=== PATIENT | male | born 1940 | race Caucasian/White ===

== ENCOUNTER 2019-12-15 13:38 | Outpatient (CLI) | payer MEDICARE, OTHER, SELFPAY ==
--- NOTE | ~2019-12-15 | CT_ITS ---
EXAMINATION: CT abdomen pelvis w con DATE: 12/15/2019 15:19 INDICATION: Appendiceal cancer. Follow-up. TECHNIQUE: Computed tomography (CT) of the abdomen and pelvis was performed with 100 cc Omnipaque 350 intravenous contrast. The dose-length product was 729.84 mGy-cm. Automated exposure control and iter ative reconstruction technique were employed. COMPARISON: CT dated 06/16/2019 FINDINGS: There is bibasilar atelectasis. Heart size normal. No significant pleural or pericardial ef fusion. Fatty infiltration of the liver. The spleen is not visualized, likely surgically absent. Status post cholecystectomy with expected prominence of the common bile duct. Status post partial right colectomy and appendectomy. Status post prostatectomy. The pancreas, adrenal glands and kidneys are unremarkab le. Nonobstructive bowel gas pattern. There is a left hip arthroplasty. 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 Moderate lumbar spondylosis. IMPRESSION: 1. No evidence for residual/recurrent malignancy or metastatic disease. No significant change. Reviewed, dictated and finalized at location A. IMPRESSION: 1. No evidence for residual/recurrent malignancy or metastatic disease. No sign ificant change.
[2019-12-15 15:06] LABS: Estimated Glomerular Filt Rate 45
== END 2019-12-15 13:39 | disposition home or self-care (01) ==
PROVIDERS: PCP Family Medicine; Visit Provider Internal Medicine Medical Oncology
DX: C18.1 Malignant neoplasm of appendix (principal)
CPT/HCPCS: 36415; 74177; Q9967

== ENCOUNTER 2020-04-09 13:01 | Outpatient (CLI) | payer MEDICARE, OTHER, SELFPAY ==
--- NOTE | ~2020-04-09 | XR_ITS ---
EXAMINATION: XR chest 2V DATE: 04/09/2020 13:22 INDICATION: Pleurodynia. Right shoulder pain. TECHNIQUE: Frontal and lateral views of the chest were obtained. COMPARISON: Chest 2 views 01/22/2017, CT abdomen and pelvis 12/15/2019 FINDINGS: The chest demonstrates clear lungs without pneumonia, pleural effusion, or pneumothorax. Th e heart size is normal. IMPRESSION: 1. No acute cardiopulmonary disease. Reviewed, dictated and finalized at location B.
== END 2020-04-09 13:02 | disposition home or self-care (01) ==
PROVIDERS: PCP Family Medicine; Visit Provider Physician Assistant Medical
DX: R07.81 Pleurodynia (principal)
CPT/HCPCS: 71046

== ENCOUNTER → 2021-05-05 15:46 | Outpatient (CLI) | payer MEDICARE, OTHER, SELFPAY ==
--- NOTE | ~2021-05-05 | XR_ITS ---
XR chest 2V 05/05/2021 16:06 Indication: Covid19. Shortness of breath. Procedure: 2 view chest Comparison: Comparison to multiple prior studies sequentially, with oldest reviewed study dated 12/01. Findings: Patchy bibasilar airspace disease, compatible with pneumonia. No pleural effusion. No pneum othorax. Heart size is normal. No acute osseous abnormality. Impression: 1: Patchy bibasilar airspace disease, compatible with pneumonia. Reviewed, dictated and finalized at location A. Impression: 1: Patchy bibasilar airspace disease, compatible with pneumonia.
== END ==
PROVIDERS: PCP Physician Assistant Medical; Visit Provider Physician Assistant Medical
DX: U07.1 COVID-19 (principal); R91.8 Other nonspecific abnormal finding of lung field
CPT/HCPCS: 71046

== ENCOUNTER → 2021-05-26 09:12 | Outpatient (CLI) | payer MEDICARE, OTHER, SELFPAY ==
--- NOTE | ~2021-05-26 | XR_ITS ---
XR chest 2V 05/26/2021 09:26 Indication: Pneumonia Procedure: 2 view chest Comparison: Comparison to multiple prior studies sequentially, with oldest reviewed study dated 12/01. Findings:Improving bibasilar airspace disease, compatible with improving pneumonia. No effusion. Hear t size normal. No pleural effusion or pneumothorax. No acute osseous abnormality. Impression: 1: Improving patchy bibasilar pneumonia. Reviewed, dictated and finalized at location A. Impression: 1: Improving patchy bibasilar pneumonia.
== END ==
PROVIDERS: PCP Physician Assistant Medical; Visit Provider Physician Assistant Medical
DX: U07.1 COVID-19 (principal); J12.82 Pneumonia due to coronavirus disease 2019
CPT/HCPCS: 71046

== ENCOUNTER 2021-06-11 08:16 | Outpatient (CLI) | payer MEDICARE, OTHER, SELFPAY ==
--- NOTE | ~2021-06-11 | CT_ITS ---
EXAMINATION: CT abdomen pelvis w con EXAM DATE: 06/11/2021 08:56 INDICATION: Restaging for cancer of appendix. TECHNIQUE: Spiral CT of the abdomen and pelvis was performed following intravenous injection of 100 m L Omnipaque 350. Axial, coronal and sagittal images of the abdomen and pelvis were reviewed. The do se-length product (DLP) for this examination was 745.54 mGy-cm. The exposure was tailored according to patient size (auto mA exposure control), and iterative reconstruction (ASIR) was used as additiona l dose reduction technique. Comparison is made to prior examination from 12/15/2019. FINDINGS: There is hepatic steatosis without suspicious focal lesion identified. Spleen not identifie d. Adrenal glands, pancreas are unremarkable. There are a couple of liver cysts. There are cholecyst ectomy clips. Portal and splenic veins are patent. Kidneys enhance symmetrically. There is no hydr onephrosis. Probable prostatectomy, pelvic lymph node dissection. The bladder is unremarkable. Th ere is no retroperitoneal or pelvic lymphadenopathy. There is mild scattered arteriosclerotic disea se. Cecal resection, no evidence of wall thickening along the anastomosis site. Small inguinal fat-contai winsome hernias. There is mild scattered colonic diverticulosis. There is no adjacent inflammatory baptiste ge to suggest diverticulitis. The stomach and small bowel are unremarkable. There is expected amount of colonic stool. No free intraperitoneal gas. The heart is normal in size. There are no perica rdial or pleural effusions. Linear basilar atelectasis. There are no osteoblastic or osteolytic les ions identified. There is left hip replacement. IMPRESSION: 1. Stable postoperative changes. No evidence metastatic disease. 2. Hepatic steatosis. 3. Inguinal hernias. 4. Mild scattered colonic diverticulosis. Reviewed, dictated and finalized at location B.
[2021-06-11 08:47] LABS: Estimated Glomerular Filt Rate 49
== END 2021-06-11 08:17 | disposition home or self-care (01) ==
LOC: ANHIMG 08:17
PROVIDERS: PCP Family Medicine; Visit Provider Internal Medicine Medical Oncology
DX: C18.1 Malignant neoplasm of appendix (principal); K76.0 Fatty (change of) liver, not elsewhere classified; K40.90 Unilateral inguinal hernia, without obstruction or gangrene, not specified as recurrent; K57.30 Diverticulosis of large intestine without perforation or abscess without bleeding
CPT/HCPCS: 74177; Q9967

== ENCOUNTER 2021-12-23 08:50 | Outpatient (CLI) | payer MEDICARE, OTHER, SELFPAY ==
--- NOTE | ~2021-12-23 | CT_ITS ---
EXAMINATION: CT abdomen pelvis w con DATE: 12/23/2021 09:32 INDICATION: Restaging of appendiceal cancer TECHNIQUE: Computed tomography (CT) of the abdomen and pelvis was performed with 100 CC Omnipaque 300 intravenous contrast. Automated exposure control and iterative reconstruction technique were employe d. Exam dose: 672.18 mGy-cm total exam DLP. COMPARISON: 06/11/2021 CT abdomen pelvis FINDINGS: There is discoid atelectasis and/or scarring in both lower lobes. No consolidation at the l aline bases. No pleural effusions. No pericardial effusion. Normal heart size. There is some aortic norm ve calcification. Diffuse hepatic steatosis. 2 approximately 11 mm left and 11 mm right hepatic cysts. Status post cholecystectomy. No bile duct dilatation. The spleen is absent. No pancreatic mass lesion or calcification or ductal dilatation. Normal morphology of the adrenal glands, and minimal left adrenal calcification. No renal mass lesion or urinary tract calculus or hydroureteronephrosis. There is atherosclerotic calcification but normal caliber of the abdominal aorta. No intraperitoneal or retroperitoneal or pelvic mass lesion or adenopathy or ascites. Status post prostatectomy and pelvic side wall lymph node dissection. Status post appendectomy and right partial colectomy. There is a prominent amount of fecal material in the colon but no evidence of bowel obstruction. Dive rticulosis of the left colon; no CT evidence of diverticulitis. No intraperitoneal free air. There is severe degenerative disc disease at L3-4, L4-5 and L5-S1. No suspicious osteolytic or osteob lastic lesions are noted. Status post left total hip arthroplasty. Right hip osteoarthritis. IMPRESSION: Status post appendectomy and right partial colectomy; no recurrent or metastatic appendi ceal neoplasm is evident Status post prostatectomy and bilateral pelvic sidewall lymph node dissection Status post cholecystectomy Hepatic steatosis Hepatic cysts Diverticulosis of the left colon; no CT evidence of diverticulitis Status post left total hip arthroplasty Reviewed, dictated and finalized at Location A. Reviewed, dictated and finalized at location B. IMPRESSION: Status post appendectomy and right partial colectomy; no recurrent or metastatic appendiceal neoplasm is evident Status post prostatectomy and bilateral pelvic sidewall lymph node dissection Status post cholecystectomy Hepatic steatosis Hepatic cysts Diverticulosis of the left colon; no CT evidence of diverticulitis Status post left total hip arthroplasty
[2021-12-23 09:22] LABS: Estimated Glomerular Filt Rate 53
== END 2021-12-23 08:51 | disposition home or self-care (01) ==
PROVIDERS: PCP Family Medicine; Visit Provider Internal Medicine Medical Oncology
DX: C18.1 Malignant neoplasm of appendix (principal); Z90.49 Acquired absence of other specified parts of digestive tract; K76.0 Fatty (change of) liver, not elsewhere classified; K57.30 Diverticulosis of large intestine without perforation or abscess without bleeding
CPT/HCPCS: 74177; Q9967

== ENCOUNTER 2022-07-20 09:19 | Outpatient (CLI) | payer MEDICARE, OTHER, SELFPAY ==
--- NOTE | ~2022-07-20 | CT_ITS ---
EXAMINATION: CT abdomen pelvis w con DATE: 07/20/2022 09:51 INDICATION: Restaging, appendiceal cancer TECHNIQUE: Computed tomography (CT) of the abdomen and pelvis was performed with 100 CC Omnipaque 350 intravenous contrast. Automated exposure control and iterative reconstruction technique were employe d. Exam dose: 823.19 mGy-cm total exam DLP. COMPARISON: 12/23/2021 CT abdomen pelvis FINDINGS: Normal heart size. No pericardial or pleural effusion. There is chronic discoid atelectasis and/or scarring in the lower lung zones. Stable approximately 11 mm cyst of left and right hepatic lobes. No new or enlarged hepatic space-occ upying mass lesion. The spleen is absent. The gallbladder is absent. No bile duct or pancreatic duct dilatation. No pancreatic mass lesion or c alcification or ductal dilatation. Normal morphology of the adrenal glands. No renal mass lesion or urinary tract calculus or hydroureteronephrosis. There is atherosclerotic calcification but normal caliber of the abdominal aorta. No intraperitoneal or retroperitoneal or pelvic mass lesion or adenopathy or ascites is detected. There is a prominent amount of fecal material in the colon. No bowel obstruction is evident. There is diverticulosis of the colon; no CT evidence of diverticulitis. Status post right partial colectomy. No bowel obstruction or intraperitoneal free air. Status post prostatectomy and bilateral pelvic sidewall lymph node dissection. Degenerative spurring of the thoracic spine. Severe degenerative disc disease at L3-4, L4-5 and L5-S1. Prominent right hip osteoarthritis. Status post left total hip arthroplasty. IMPRESSION: Status post right partial colectomy Status post prostatectomy and bilateral pelvic sidewall lymph node dissection No abdominal or pelvic mass lesion or adenopathy Stable left and right hepatic lobe millimeters cysts Diverticulosis of left colon and rectum are monophasic material in the colon; no bowel obstruction Reviewed, dictated and finalized at Location A. Reviewed, dictated and finalized at location B. SERVICE WAITER/WAITRESS IMPRESSION: Status post right partial colectomy Status post prostatectomy and bilateral pelvic sidewall lymph node dissection No abdominal or pelvic mass lesion or adenopathy Stable left and right hepatic lobe millimeters cysts Diverticulosis of left colon and rectum are monophasic material in the colon; n o bowel obstruction
[2022-07-20 09:45] LABS: Estimated Glomerular Filt Rate 49
== END 2022-07-20 09:20 | disposition home or self-care (01) ==
PROVIDERS: PCP Family Medicine; Visit Provider Internal Medicine Medical Oncology
DX: C18.1 Malignant neoplasm of appendix (principal); K76.89 Other specified diseases of liver; K57.30 Diverticulosis of large intestine without perforation or abscess without bleeding
CPT/HCPCS: 74177; Q9967

== ENCOUNTER → 2022-07-27 10:34 | Outpatient (CLI) | payer MEDICARE, OTHER, SELFPAY ==
--- NOTE | ~2022-07-27 | XR_ITS ---
AP view of the pelvis and lateral view of the right hip Clinical history: Pain Findings: No acute fracture or dislocation is seen. There is minimal degenerative change of the right hip joint. Left hip arthroplasty hardware present. Additional pelvic surgical clips are noted. Soft tissues are otherwise unremarkable. Impression: No acute reality. Minimal degenerative change of the right hip joint. Left hip arthroplasty in place. Reviewed, dictated and finalized at location M. N FILM EXTRUSION OPERATOR Impression: No acute reality. Minimal degenerative change of the right hip joint. Left hip arthroplasty in place.
== END ==
PROVIDERS: PCP Family Medicine; Visit Provider Physician Assistant Medical
DX: M25.551 Pain in right hip (principal); G89.29 Other chronic pain
CPT/HCPCS: 73502

== ENCOUNTER → 2022-11-23 16:25 | Outpatient (CLI) | payer MEDICARE, OTHER, SELFPAY ==
--- NOTE | ~2022-11-23 | XR_ITS ---
Cervical Spine: AP, lateral, open-mouth views Clinical History: Pain Findings: The normal lordotic curve is maintained. No fracture or subluxation evident. There is advan joyce degenerative disc change at C6-C7. There is mild to moderate degenerative disc change at C4 and C 5 and C5-C6. There is facet arthropathy throughout the cervical spine. Pre-vertebral soft tissues are unremarkable. Impression: No fracture or subluxation evident. Degenerative spondylosis, as above. Reviewed, dictated and finalized at location M. Impression: No fracture or subluxation evident. Degenerative spondylosis, as above.
== END ==
PROVIDERS: PCP Family Medicine; Visit Provider Physician Assistant Medical
DX: M47.892 Other spondylosis, cervical region (principal)
CPT/HCPCS: 72040

== ENCOUNTER 2023-05-18 11:04 | Emergency (ER) | payer MEDICARE, OTHER, SELFPAY ==
[2023-05-18] VITALS (26 sets, daily range): BP systolic 140–162; BP diastolic 74–96; PULSE 56–78; RESP 11–22; TEMP 36.7; O2SAT 92–98
--- NOTE | ~2023-05-18 | XR_ITS ---
EXAMINATION: XR chest 2V DATE: 05/18/2023 11:58 INDICATION: Right-sided chest pain TECHNIQUE: PA and lateral views of the chest were obtained. COMPARISON: Chest radiograph dated 05/26/[address] abdomen and pelvis dated 07/20/2022 FINDINGS: Chronic linear discoid atelectasis/scarring at the bilateral lung bases. No new airspace opacities, p ulmonary edema, pleural effusion or pneumothorax. The cardiomediastinal silhouette is normal. Mild th oracic spondylosis. IMPRESSION: 1. Chronic mild discoid atelectasis/scarring at the bilateral lung bases. No other acute cardiopulmon harman disease. Reviewed, dictated and finalized at location A. IMPRESSION: 1. Chronic mild discoid atelectasis/scarring at the bilateral lung bases. No ot her acute cardiopulmonary disease.
--- NOTE | 2023-05-18 11:08 | ECG_ITS ---
Measurements Intervals [place] Rate: 64 P: 43 CO: 184 QRS: -28 QRSD: 108 T: 48 QT: 398 QTc: 412 Interpretive Statements SINUS RHYTHM WITH OCCASIONAL SUPRAVENTRICULAR PREMATURE COMPLEXES BORDERLINE LEFT AXIS DEVIATION [QRS AXIS < -20] NO PREVIOUS ECG AVAILABLE FOR COMPARISON Electronically Signed On 05-18-2023 12:43:40 CDT by Farzad Fraga M.D.
[2023-05-18] MEDS: ASPIRIN 81 MG CHEWABLE TABLET 324 MG PO (11:39)
[2023-05-18 11:45] LABS: Basophils Absolute Auto 0.1 K/mm3 (0.0-0.1); Basophils Percent Auto 0.9 % (0.2-1.2); Eosinophils Absolute Auto 0.2 K/mm3 (0-0.3); Eosinophils Percent Auto 2.3 % (0-4.4); Hematocrit 46.2 % (42.0-52.0); Hemoglobin 15.5 g/dL (14.0-18.0); Immature Granulocyte Absolute 0.05 K/mm3 (0.00-0.031); Immature Granulocyte Percent A 0.5 % (0-0.5); Lymphocytes Absolute Auto 4.13 K/mm3 (0.9-3.2); Lymphocytes Percent Auto 45.3 % (18.3-44.2); Mean Corpuscular HGB Conc 33.5 g/dl (32-36); Mean Corpuscular Hemoglobin 33.4 pg (26-34); Mean Corpuscular Volume 99.6 fl (80-100); Monocytes Absolute Auto 0.9 K/mm3 (0.1-0.6); Monocytes Percent Auto 9.3 % (2.6-8.5); Neutrophils Absolute Auto 3.8 K/mm3 (1.3-6.7); Neutrophils Percent Auto 41.7 % (45.5-73.1); Platelet Count Result 277 k/mm3 (150-375); Red Blood Count 4.64 M/mm3 (4.6-6.20); Red Cell Distribution Width 14.4 % (11.5-14.5); White Blood Count 9.1 K/mm3 (4.5-10.0)
[2023-05-18 11:56] LABS: Alanine Aminotransferase 29 U/L (6-50); Albumin Level 4.5 g/dL (3.5-5.1); Alkaline Phosphatase 84 U/L (38-126); Anion Gap 9 mmol/L (8-16); Aspartate Amino Transferase 28 U/L (17-59); Bilirubin,Total 0.8 mg/dL (0.2-1.3); Blood Urea Nitrogen 21 mg/dL (9-20); Calcium 9.7 mg/dL (8.4-10.2); Carbon Dioxide 24 mmol/L (22-30); Chloride 107 mmol/L (98-107); Estimated CRCL calculation 40 ml/min; Estimated Glomerular Filt Rate 53; Glucose 89 mg/dL (65-110); INR 0.9; Lipase 55 U/L (23-300); Partial Thromboplastin Time 26.7 SECONDS (22.3-36.8); Potassium 4.3 mmol/L (3.4-5.0); Prothrombin Time 12.7 Seconds (11.1-14.7); Sodium 140 mmol/L (137-145)
[2023-05-18 12:08] LABS: Troponin I < 0.012 ng/mL (0.000-0.034)
--- NOTE | 2023-05-18 12:19 | ED.CHESTPAIN ---
HPI - Chest Pain General Chief Complaint: Chest Pain Stated Complaint: chest pain, h/a, nauseous, dizzy Time Seen by Provider: 05/18/23 11:58 History of Present Illness HPI narrative: 82-year-old male with history of hypertension, appendiceal carcinoma status post resection, GERD presenting with chest pain. Patient states that for the last 3 days he has had right-sided chest pain. States that turning to the right in certain ways sometimes exacerbates the pain. He denies a pleuritic or exertional component. No left-sided pain. Reports mild exertional shortness of breath that he thinks is unchanged from baseline. Reports general malaise, cough for the last couple of days. States that he thinks he was febrile a couple of days ago as well but he had a negative home COVID test. He is also felt a bit lightheaded and nauseated but without vomiting. He has been able to tolerate p.o. intake. No numbness or weakness, palpitations, abdominal pain, leg swelling, back pain, flank pain, dysuria. Related Data Home Medications Medication Instructions Recorded Confirmed rosuvastatin 10 mg tablet (Crestor) 10 mg PO DAILY 10/11/19 04/07/23 Lactobac 51-Bifidobac cap PO 08/28/22 04/07/23 3-L.lactis-S.thermophilus 4 billion cell capsule (Daily Probiotic (10 Strains)) ascorbate calcium (vitamin C) 500 500 mg PO DAILY 08/28/22 04/07/23 mg tablet calcium tablet PO 08/28/22 04/07/23 savk-L6-twgjeyoo-inosit-silicon 300 mg-200 unit-37.5 mg tablet cholecalciferol (vitamin D3) 50 50 mcg PO DAILY 08/28/22 04/07/23 mcg (2,000 unit) capsule mecobalamin (vitamin B12) 1,000 1,000 mcg PO DAILY 08/28/22 04/07/23 mcg chewable tablet (B12 Active) multivitamin 1 tablet PO DAILY 08/28/22 04/07/23 mv-min-vit C-ascorb tablet PO 08/28/22 04/07/23 Mr-Lji-Qmi-herb #124 333 mg-1.7 mg chewable tablet (Airborne (ascorbate sodium)) omega-3 fatty acids 500 mg capsule 500 mg PO DAILY 08/28/22 04/07/23 zinc acetate 50 mg (zinc) capsule 50 mg PO DAILY 08/28/22 04/07/23 (Galzin) Allergies Allergy/AdvReac Type Severity Reaction Status Date / Time No Known Allergies Allergy Verified 04/07/23 09:35 Review of Systems Review of Systems: All systems reviewed & are unremarkable except as noted in HPI and below PMFSH Past Medical History Medical History BMI 29.0-29.9,adult BMI 30.0-30.9,adult Cancer of appendix Essential hypertension Mixed hyperlipidemia TIA (transient ischemic attack) 2009 Surgical History Surgical History History of appendectomy (~10/2014) History of cholecystectomy History of colon resection (~2000) History of colonoscopy with polypectomy (~03/16/19) History of hemorrhoidectomy (~1966) History of left hip replacement (~06/01/17) History of left knee replacement (~08/31/17) History of right knee joint replacement (~06/07/18) Hx of splenectomy Hx of tonsillectomy (~194) Family History Family History Father Family history of lung cancer Tobacco abuse Mother Family history of lung cancer Tobacco abuse COPD (chronic obstructive pulmonary disease) Sibling , cancer No problems noted. Sibling , suicide No problems noted. Other Family history of cardiovascular disease Family history of coronary artery disease Hypertension Social History Social History Smoking status: Never smoker Second hand tobacco smoke exposure: Yes Alcohol intake: current Alcohol use details: social Substance use: never Substance use type: does not use Lack of Transportation: No Lack of Food: Never True Current Housing: I Have Housing Concerned About Future Housing: No Difficulty Paying Gas/Electric Bills: No Difficult
[2023-05-18] MEDS: SODIUM CHLORIDE 0.9% IV 1,000 ML 999 ML IV CONT (13:00)
[2023-05-18 13:09] LABS: Influenza A QL RT-PCR Negative (Negative); Influenza B QL RT-PCR Negative (Negative); SARS-CoV-2 RNA PCR Negative (Negative)
[2023-05-18 14:32] LABS: Troponin I < 0.012 ng/mL (0.000-0.034)
--- NOTE | 2023-06-01 11:53 | PC.NURSE ---
LATE ENTRY This note is being entered to document information to the patient's record. The following information was omitted on [05/18/23], by [Elizabeth Jurado Normal Saline 1000 ml].
== END 2023-05-18 15:25 | disposition home or self-care (01) ==
PROVIDERS: Emergency Medicine; Emergency Provider Emergency Medicine; PCP Family Medicine
DX: R07.89 Other chest pain (principal); Z20.822 Contact with and (suspected) exposure to COVID-19; I10 Essential (primary) hypertension; E78.2 Mixed hyperlipidemia; K21.9 Gastro-esophageal reflux disease without esophagitis; Z86.73 Personal history of transient ischemic attack (TIA), and cerebral infarction without residual deficits; Z85.038 Personal history of other malignant neoplasm of large intestine; Z96.653 Presence of artificial knee joint, bilateral; Z96.642 Presence of left artificial hip joint; Z90.49 Acquired absence of other specified parts of digestive tract; Z90.81 Acquired absence of spleen; I49.1 Atrial premature depolarization
CPT/HCPCS: 36415; 71046; 80053; 83690; 84484; 85025; 85610; 85730; 87636; 93005; 96360; 99284; A9270; J7030

== ENCOUNTER 2023-07-22 14:39 | Outpatient (CLI) | payer MEDICARE, OTHER, SELFPAY ==
--- NOTE | ~2023-07-22 | CT_ITS ---
EXAMINATION: CT abdomen pelvis w con DATE: 07/22/2023 15:11 INDICATION: Cancer of appendix. TECHNIQUE: Computed tomography (CT) of the abdomen and pelvis was performed with 100 mL Omnipaque 350 intravenous contrast. Automated exposure control and iterative reconstruction technique were employe d. The dose-length product was 669.05 mGy-cm. COMPARISON: CT abdomen and pelvis 07/20/2022 FINDINGS: The visualized portions of the lung bases demonstrate mild atelectasis. No pleural effusion . The heart size is normal. There are coronary artery calcifications. There are calcifications of aor tic valve. No pericardial effusion. There are cysts in the liver measuring up to 13 mm. The gallbladd er is absent. The spleen is absent. The pancreas and adrenal glands are normal. There is cortical thi nning of the kidneys. There is a left inguinal hernia containing fat. There are no dilated loops of b owel. There are changes of right hemicolectomy. There are likely changes of resection of the greater omentum. There are surgical clips from pelvic lymph node dissection. Aortic atherosclerosis is noted. There are no pathologically enlarged lymph nodes. There is no free intraperitoneal fluid. There is a total left hip arthroplasty. There is severe lumbar spondylosis. IMPRESSION: 1. No evidence of metastatic disease. Reviewed, dictated and finalized at location E. ATRIC CRITICAL CARE NURSE
[2023-07-22 15:01] LABS: Estimated Glomerular Filt Rate 45
== END 2023-07-22 14:40 | disposition home or self-care (01) ==
PROVIDERS: PCP Family Medicine; Visit Provider Internal Medicine Medical Oncology
DX: C18.1 Malignant neoplasm of appendix (principal)
CPT/HCPCS: 74177; Q9967

== ENCOUNTER 2023-12-17 13:02 | Outpatient (CLI) | payer MEDICARE, OTHER, SELFPAY ==
--- NOTE | 2023-12-17 13:39 | ECG_ITS ---
SEE SCANNED COPY FOR CONFIRMED REPORT MTDD
[2023-12-17 15:06] LABS: Hematocrit 43.3 % (42.0-52.0); Hemoglobin 14.3 g/dL (14.0-18.0)
[2023-12-17 15:17] LABS: Albumin Level 4.5 g/dL (3.5-5.1); Estimated Glomerular Filt Rate 42; Glucose 92 mg/dL (65-110)
[2023-12-17 16:25] LABS: Hemoglobin A1C 5.8 % (<5.7)
== END 2023-12-17 13:03 | disposition home or self-care (01) ==
PROVIDERS: PCP Family Medicine; Visit Provider Orthopaedic Surgery
DX: I10 Essential (primary) hypertension (principal); N28.9 Disorder of kidney and ureter, unspecified; M16.11 Unilateral primary osteoarthritis, right hip; R73.01 Impaired fasting glucose
CPT/HCPCS: 36415; 82040; 82565; 82947; 83036; 85014; 85018; 93005

== ENCOUNTER 2023-12-20 10:41 | Inpatient (IN) | payer MEDICARE, OTHER, SELFPAY ==
[2023-12-20] VITALS (18 sets, daily range): BP systolic 132–158; BP diastolic 76–93; PULSE 62–69; RESP 16–20; TEMP 36.2–36.6; O2SAT 91–100; BMI 28.8
--- NOTE | ~2023-12-20 | CT_ITS ---
EXAMINATION: CTA chest PE protocol DATE: 12/20/2023 13:54 INDICATION: Chest pain and shortness of breath. TECHNIQUE: Computed tomography angiography (CTA) of the chest was performed with 100 mL Omnipaque-350 intravenous contrast timed to evaluate the pulmonary arteries. Coronal maximum intensity projection 3D-reconstructions were created by the technologist. Automated exposure control and iterative reconst ruction technique were employed. The dose-length product was 532.88 mGy-cm. COMPARISON: None. FINDINGS: The lungs demonstrate mild atelectasis. No pleural effusion. The heart size is normal. No p ericardial effusion. There are calcifications of the aortic valve. There is no pulmonary embolus. The re is mild mediastinal and bilateral hilar lymphadenopathy, likely reactive. There are cysts in the k idneys liver measuring up to 11 mm. There is severe cervical and thoracic spondylosis. IMPRESSION: 1. No pulmonary embolus. 2. Mild mediastinal and bilateral hilar lymphadenopathy, likely reactive. Reviewed, dictated and finalized at location A.
--- NOTE | ~2023-12-20 | NM_ITS ---
EXAMINATION: NM alice stress w perfusion DATE: 12/21/2023 14:39 INDICATION: Chest pain. TECHNIQUE: Rest images were obtained following intravenous administration of 10.6 mCi Tc99m tetrofosm in (Myoview). The patient was infused intravenously with Lexiscan (regadenoson). Then, 33.9 mCi Tc99m tetrofosmin (Myoview) was administered intravenously, and stress images were obtained. Data was yan nstructed into short axis and horizontal and vertical long axis SPECT images. Gated SPECT images were also obtained. COMPARISON: Chest CT 12/20/2023 FINDINGS: There is no definite reversible or fixed perfusion abnormality to suggest ischemia or infar ction. There is no segmental wall motion abnormality. Left ventricular ejection fraction measures > 70%. IMPRESSION: 1. No definite ischemia or infarct. 2. Normal left ventricular ejection fraction measuring >70%. Reviewed, dictated and finalized at location A.
--- NOTE | ~2023-12-20 | XR_ITS ---
EXAMINATION: XR chest 2V DATE: 12/20/2023 11:39 INDICATION: Cough and chest pain TECHNIQUE: PA and lateral views of the chest were obtained. COMPARISON: Chest radiograph dated 05/18/2023 FINDINGS: Unchanged streaky left basilar atelectasis/scarring. No new airspace opacities, pulmonary edema, pleu ral effusion or pneumothorax. The cardiomediastinal silhouette is normal. IMPRESSION: 1. Chronic atelectasis/scarring at the left lung base. No acute cardiopulmonary disease. Reviewed, dictated and finalized at location A.
--- NOTE | 2023-12-20 10:44 | ECG_ITS ---
SEE SCANNED COPY FOR CONFIRMED REPORT MTDD
[2023-12-20 11:17] LABS: Basophils Absolute Auto 0.1 K/mm3 (0.0-0.1); Basophils Percent Auto 1.3 % (0.2-1.2); Eosinophils Absolute Auto 0.2 K/mm3 (0-0.3); Eosinophils Percent Auto 2.5 % (0-4.4); Hematocrit 39.3 % (42.0-52.0); Hemoglobin 13.1 g/dL (14.0-18.0); Immature Granulocyte Absolute 0.02 K/mm3 (0.00-0.031); Immature Granulocyte Percent A 0.3 % (0-0.5); Lymphocytes Absolute Auto 3.14 K/mm3 (0.9-3.2); Lymphocytes Percent Auto 51.4 % (18.3-44.2); Mean Corpuscular HGB Conc 33.3 g/dl (32-36); Mean Corpuscular Hemoglobin 32.4 pg (26-34); Mean Corpuscular Volume 97.3 fl (80-100); Mean Platelet Volume 9.9 fl (7.4-10.4); Monocytes Absolute Auto 0.7 K/mm3 (0.1-0.6); Monocytes Percent Auto 11.9 % (2.6-8.5); Neutrophils Percent Auto 32.6 % (45.5-73.1); Platelet Count Result 273 k/mm3 (150-375); Red Blood Count 4.04 M/mm3 (4.6-6.20); Red Cell Distribution Width 14.1 % (11.5-14.5); White Blood Count 6.1 K/mm3 (4.5-10.0)
[2023-12-20 11:28] LABS: Prothrombin Time 13.5 Seconds (11.1-14.7)
[2023-12-20 11:29] LABS: Partial Thromboplastin Time 29.9 Seconds (22.3-36.8)
[2023-12-20 11:32] LABS: Alanine Aminotransferase 26 U/L (6-50); Albumin Level 4.3 g/dL (3.5-5.1); Alkaline Phosphatase 66 U/L (38-126); Anion Gap 8 mmol/L (4-12); Aspartate Amino Transferase 32 U/L (17-59); Bilirubin,Total 0.7 mg/dL (0.2-1.3); Blood Urea Nitrogen 17 mg/dL (9-20); Calcium 9.2 mg/dL (8.4-10.2); Carbon Dioxide 20 mmol/L (22-30); Chloride 110 mmol/L (98-107); Estimated CRCL calculation 45 ml/min; Estimated Glomerular Filt Rate 53; Glucose 93 mg/dL (65-110); Lipase 110 U/L (23-300); Potassium 4.4 mmol/L (3.4-5.0); Sodium 138 mmol/L (137-145)
[2023-12-20 11:44] LABS: Troponin I < 0.012 ng/mL (0.000-0.034)
--- NOTE | 2023-12-20 12:24 | ED.CHESTPAIN ---
HPI - Chest Pain General Chief Complaint: Chest Pain Stated Complaint: CP and cough Time Seen by Provider: 12/20/23 12:02 Source: patient, RN notes reviewed and old records reviewed Mode of arrival: ambulatory Limitations: no limitations History of Present Illness HPI narrative: This is an 82 year old male who presents for evaluation of chest pain and shortness of breath. He states he has been having intermittent midsternal chest pain when activity for past 1-2 weeks. He describes the pain as tightness and he has associated shortness of breath. His last episode if chest pain was this morning when he was going to let the dog out the house. He denies associated leg swelling, calf pain, fever, diaphoresis. He does reports having a cough for over 1 month after having bronchitis. He denies history of heart attack , heart disease. His palliative care nurse is Dr. Littlejohn. His last stress test was 2 years ago . Related Data Home Medications Medication Instructions Recorded Confirmed rosuvastatin 10 mg tablet (Crestor) 10 mg PO DAILY 10/11/19 12/20/23 Allergies Allergy/AdvReac Type Severity Reaction Status Date / Time No Known Allergies Allergy Verified 12/01/23 08:26 Review of Systems Constitutional: Constitutional: Denies weakness Cardiovascular: Cardiovascular: Reports chest pain, Denies syncope, Denies rapid heart rate, Denies irregular heart rhythm, Denies leg edema and Reports dyspnea Respiratory: Respiratory: Denies chest congestion, Reports cough, Denies hemoptysis, Denies excessive phlegm production and Reports dyspnea Gastrointestinal: Gastrointestinal: Denies abdominal pain, Denies hematochezia, Denies diarrhea and Denies vomiting Genitourinary: Genitourinary: Denies hematuria, Denies dysuria, Denies penile discharge and Denies testicular pain Musculoskeletal: Musculoskeletal: Denies joint swelling, Denies loss of height and Denies muscle weakness Neurologic: Denies syncope, Denies focal weakness and Denies weakness FOR[facility]LY [facility] Past Medical History Medical History (Updated 12/20/23 @ 20:53 by Betina Mack MD) 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 Carotid artery disease Status post left carotid endarterectomy. Essential hypertension Mixed hyperlipidemia Prostate cancer Status post prostatectomy. Transient ischemic attack (2009) Surgical History Surgical History (Updated 12/20/23 @ 17:15 by Maisha Lawrence PA-C) History of appendectomy (10/2014) History of cardiac catheterization (2007) History of cholecystectomy History of colon resection (10/2014) For cancer of the appendix. History of colonoscopy with polypectomy (03/16/19) History of hemorrhoidectomy (1966) History of left hip replacement (06/01/17) History of left knee replacement (08/31/17) History of left-sided carotid endarterectomy (02/15/08) History of prostatectomy (2000) History of right knee joint replacement (06/07/18) History of splenectomy History of tonsillectomy (194) Family History Family History Father Family history of lung cancer Tobacco abuse Mother Family history of lung cancer Tobacco abuse COPD (chronic obstructive pulmonary disease) Sibling , cancer Alcoholism Heart disease Suicide Other Family history of cardiovascular disease Family history of coronary artery disease Hypertension Social History Social History (Updated 12/20/23 @ 17:15 by Maisha Lawrence PA-C) Social History: Surrogate medical decision maker: Shira hammond, spouse. Code status: Full code. Smoking status: Never smoker Second hand tobacco smoke exposure: Yes Alcohol intake: current Drinks per week: 1 Alcohol use details: social Substance use: never Substance use type: does not use Do You Feel Safe in your Home?: Yes Lack of Transportation: No Lack of Nu
[2023-12-20 13:33] LABS: D Dimer 0.55 ug/mL (<0.48)
[2023-12-20 15:31] LABS: Troponin I < 0.012 ng/mL (0.000-0.034)
--- NOTE | 2023-12-20 16:53 | ADMGEN ---
This patient, Matthias Chu, was admitted to IMU Room 232-01. Patient/family oriented to hospital policies and general routines including ID bracelet, bed and alarms, visiting hours, pain management, procedures, bathroom and other care routines, personal items, smoking policy, room service/diet, and visiting hours. Information on how to activate the Rapid Response Team has been discussed. Patient/Family are encouraged to report perceived risks to care and to ask questions if they do not understand what they are told or what they should do.
--- NOTE | 2023-12-20 17:11 | PM.IMHP ---
H&P: HPI History of Present Illness Date/Time: 12/20/23 19:15 Chief Complaint: Chest pain. Narrative: This is a very pleasant 82-year-old male with history of transient ischemic attack, carotid artery disease status post left carotid endarterectomy, hypertension, hyperlipidemia, prostate cancer, and cancer of the appendix who presented to the emergency department via private vehicle for evaluation of chest pain. The patient provides the following history. Over the last couple of weeks he has been experiencing exertional chest discomfort described as nonradiating tightness in the mid chest associated with shortness of breath and dizziness. The symptoms resolve with rest or after taking a couple of aspirin. He is able to perform his usual activities of daily living and the tightness seems to occur with activity such as walking his dog. A couple of times it has wakened him in the middle of the night. Two weeks ago he had bronchitis and he has a lingering, mostly dry cough, but other symptoms have resolved. He denies syncope, near syncope, palpitations, fluttering sensations, pleuritic pain, orthopnea, paroxysmal nocturnal dyspnea, calf pain, nausea, vomiting, and sweats. Stress test in May 2022 was reportedly unremarkable. In the ED: Vital signs were stable on arrival. Troponins have been negative thus far. EKG shows rate controlled atrial fibrillation which is a new finding for the patient. Chest CTA was negative for pulmonary embolus but did show mild, likely reactive lymphadenopathy. He was given aspirin 324 mg and he is being admitted in this setting for closer monitoring and Cardiology consult. Review of Systems Review of Systems: 12 systems were reviewed and are negative except for as per HPI. 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 Carotid artery disease Status post left carotid endarterectomy. Essential hypertension Mixed hyperlipidemia Obstructive sleep apnea Intolerant to PAP therapy. Prostate cancer Status post prostatectomy. Transient ischemic attack (2009) Surgical History Surgical History (Updated 12/20/23 @ 17:15 by Maisha Lawrence PA-C) History of appendectomy (10/2014) History of cardiac catheterization (2007) History of cholecystectomy History of colon resection (10/2014) For cancer of the appendix. History of colonoscopy with polypectomy (03/16/19) History of hemorrhoidectomy (1966) History of left hip replacement (06/01/17) History of left knee replacement (08/31/17) History of left-sided carotid endarterectomy (02/15/08) History of prostatectomy (2000) History of right knee joint replacement (06/07/18) History of splenectomy History of tonsillectomy (194) Family History Family History Father Family history of lung cancer Tobacco abuse Mother Family history of lung cancer Tobacco abuse COPD (chronic obstructive pulmonary disease) Sibling , cancer Alcoholism Heart disease Suicide Other Family history of cardiovascular disease Family history of coronary artery disease Hypertension Social History Social History (Updated 12/21/23 @ 00:23 by Maisha Lawrence PA-C) Social History: Surrogate medical decision maker: Shira Chu, spouse. Code status: Full code. Smoking status: Never smoker Second hand tobacco smoke exposure: Yes Alcohol intake: current Drinks per week: 1 Alcohol use details: social Substance use: never Substance use type: does not use Do You Feel Safe in your Home?: Yes Lack of Transportation: No Lack of Food: Never True Current Housing: I Have Housing Concerned About Future Housing: No Difficulty Paying Gas/Electric Bills: No
[2023-12-20 17:25] LABS: Troponin I < 0.012 ng/mL (0.000-0.034)
[2023-12-21] VITALS (16 sets, daily range): BP systolic 119–155; BP diastolic 71–81; PULSE 58–108; RESP 18–24; TEMP 36.2–36.8; O2SAT 91–96
--- NOTE | 2023-12-21 00:26 | ECHO_ITS ---
Patient Info Name: Matthias Chu Age: 82 years : 1940 Gender: Male Ht: 69 in Wt: 195 lbs BSA: 2.10 m2 HR: 59 bpm BP: 142 / 81 mmHg Heart Rhythm: Atrial Flutter Technical Quality: Good Exam Date: 12/21/2023 8:12 AM Exam Location: Echo Lab Patient Status: Outpatient Admit Date: 12/20/2023 Staff Ordering Physician: Maisha Lawrence PA-C Cone Tender: Susanne Trujillo RDCS Attending Provider: Sabrina Hardin MD Referring Physician: Howard MACKEY; Exam Type: CA echo dop color flow w con Study Info Indications - Atrial flutter R07.9 - Chest pain, unspecified Complete two-dimensional, color flow and Doppler transthoracic echocardiogram is performed with contrast to opacify the left ventricle and to improve the deliniation of the left ventricle endocardial borders. Contrast/Agitated Saline Contrast/Ag. Saline: Definity Amount: 2.00 ml Administered By: Susanne Trujillo RDCS Existing IV Access: Yes IV Access Condition: patent with no signs of infiltration Summary 1. Left ventricular chamber dimension is normal. 2. Left ventricular systolic function is normal, estimated at >70%. 3. There is mildly increased left ventricular wall thickness. 4. The left ventricular diastolic function is grade I diastolic dysfunction. 5. Right ventricular systolic function is normal. 6. Left atrial chamber dimension is moderately enlarged. 7. Right atrial chamber dimension is moderately enlarged. 8. There is mild mitral valve regurgitation. 9. There is mild tricuspid valve regurgitation. Left Ventricle Left ventricular chamber dimension is normal. Left ventricular systolic function is normal, estimated at >70%. There is mildly increased left ventricular wall thickness. The left ventricular diastolic function is grade I diastolic dysfunction. Right Ventricle Right ventricular chamber dimension is normal. Right ventricular systolic function is normal. Left Atria Left atrial chamber dimension is moderately enlarged. Right Atria Right atrial chamber dimension is moderately enlarged. Atrial Septum Intact interatrial septum visualized by color flow imaging. Aortic Valve The aortic valve is trileaflet. There is no aortic valve stenosis. There is no aortic valve regurgitation. There is moderate aortic valve calcification. Pulmonic Valve The pulmonic valve is not well visualized. Mitral Valve There is mild mitral valve regurgitation. Tricuspid Valve There is mild tricuspid valve regurgitation. Pericardium/Pleural There is no pericardial effusion. Inferior Vena Cava Normal inferior vena cava with >50% collapse upon inspiration consistent with normal right atrial pressure, 3 mmHg. Aorta The aortic root size at the sinus of Valsalva is normal. Left Ventricular Outflow Tract Name Value Normal LVOT 2D LVOT Diameter 2.23 cm LVOT Doppler LVOT Peak Gradient 4 mmHg LVOT Mean Gradient 2 mmHg LVOT VTI 18.66 cm LVOT VTI/AV VTI Ratio 0.81 LVOT Stroke Volume 72.56 ml LVOT CO
[2023-12-21 04:49] LABS: Hematocrit 40.1 % (42.0-52.0); Hemoglobin 13.2 g/dL (14.0-18.0); Mean Corpuscular HGB Conc 32.9 g/dl (32-36); Mean Corpuscular Hemoglobin 32.7 pg (26-34); Mean Corpuscular Volume 99.3 fl (80-100); Platelet Count Result 282 k/mm3 (150-375); Red Blood Count 4.04 M/mm3 (4.6-6.20); Red Cell Distribution Width 13.8 % (11.5-14.5)
[2023-12-21 05:10] LABS: Anion Gap 9 mmol/L (4-12); Blood Urea Nitrogen 15 mg/dL (9-20); Calcium 9.5 mg/dL (8.4-10.2); Carbon Dioxide 20 mmol/L (22-30); Chloride 112 mmol/L (98-107); Estimated CRCL calculation 37 ml/min; Estimated Glomerular Filt Rate 49; Glucose 101 mg/dL (65-110); Magnesium 1.9 mg/dL (1.6-2.3); Potassium 3.9 mmol/L (3.4-5.0); Sodium 141 mmol/L (137-145)
[2023-12-21] MEDS: PERFLUTREN LIPID MICROSPHERES 1.5 ML VIAL DILUTED TO 10 ML TOTAL VOLUME IV PUSH (08:48)
[2023-12-21] MEDS: PANTOPRAZOLE 40 MG TABLET PO (09:05)
[2023-12-21] MEDS: amLODIPine BESYLATE 5 MG TABLET 10 MG PO (09:05)
[2023-12-21] MEDS: ROSUVASTATIN 10 MG TABLET PO (09:05)
[2023-12-21] MEDS: ASPIRIN 81 MG CHEWABLE TABLET PO (09:05)
[2023-12-21] MEDS: ENOXAPARIN 40 MG/0.4 ML SYRINGE SUB-Q (09:06)
--- NOTE | 2023-12-21 10:25 | IVDEFINITY ---
Prior to administration of IV Definity the patient was educated on the risks and benefits of the imaging enhancing agent including potential adverse side effects. The patient verbalized understanding. Allergies were verified. No exclusion criteria were identified and at least one of the following inclusion criteria were met: 1) physician request, 2) patient technically difficult to image (per the [place] [employer] guidelines of two or more segments not discernable within the apical view), or 3) questionable left ventricular function. ?
--- NOTE | 2023-12-21 10:45 | EST_ITS ---
Patient Info Name: Matthias Chu Age: 82 years : 1940 Gender: Male Ht: 69 in Wt: 192 lbs BSA: 2.08 m2 HR: 66 bpm BP: 152 / 81 mmHg Heart Rhythm: Atrial Flutter Exam Date: 12/21/2023 1:34 PM Exam Location: Echo Lab Patient Status: Inpatient Admit Date: 12/20/2023 Staff Ordering Physician: Farzad Fraga MD Attending Provider: Sabrina Hardin MD Exercise Technologist: Anjali Hills CT Exercise Physician: Farzad Fraga MD Exam Type: CA stress alice w NM Study Info Indications R07.9 - Chest pain, unspecified A regadenoson stress test was performed. Summary 1. No abnormal ST/T wave changes diagnostic of ischemia with Lexiscan. 2. Please correlate with nuclear medicine images, reported separately. 3. Stress test supervised by and interpreted by Farzad Fraga MD. Protocol: Lexiscan Stress ECG Details Stage: REST Duration (min): 1 min : 6 sec HR (bpm): 67 SBP (mmHg): 152 DBP (mmHg): 81 Stage: REST Duration (min): 19 min : 10 sec HR (bpm): 67 SBP (mmHg): 152 DBP (mmHg): 81 Stage: STAGE 1 Duration (min): 1 min : 0 sec HR (bpm): 66 SBP (mmHg): 157 DBP (mmHg): 94 Stage: RECOVERY Duration (min): 1 min : 0 sec HR (bpm): 67 SBP (mmHg): 157 DBP (mmHg): 94 Stage: RECOVERY Duration (min): 2 min : 0 sec HR (bpm): 68 SBP (mmHg): 157 DBP (mmHg): 94 Stage: RECOVERY Duration (min): 3 min : 0 sec HR (bpm): 67 SBP (mmHg): 165 DBP (mmHg): 85 Stage: RECOVERY Duration (min): 3 min : 29 sec HR (bpm): 67 SBP (mmHg): 165 DBP (mmHg): 85 Rest HR: 67 bpm Peak HR: 68 bpm Rest Sys BP: 152 mmHg Peak Sys BP: 165 mmHg Max Pred HR: 139 bpm % Max Pred HR: 49 % Target HR: 118 bpm Max RPP: 11,220 bpm*mmHg Total Time: 1 min : 0 sec Rest Rodriguez BP: 81 mmHg Peak Rodriguez BP: 85 mmHg Total Dose: 0.4 mg Resting ECG Atrial flutter. Stress ECG Atrial flutter. No abnormal ST/T wave changes diagnostic of ischemia with Lexiscan. Report Signatures
--- NOTE | 2023-12-21 10:46 | PM.CNCAR ---
Assessment and Plan Assessment and plan (1) Atrial flutter: Code(s): I48.92 - Unspecified atrial flutter Status: Acute Assessment and Plan: New diagnosis for the patient. Discussed the diagnosis of atrial flutter with the patient and management steps. TSH level is normal. Echocardiogram pending. [id number] is 7 for age, hypertension, TIA, vascular disease. Recommend anticoagulation. Discussed indication for anticoagulation, risks vs benefits. Patient is agreeable. Will start him on NOAC prior to discharge. Patient is currently rate-controlled, does not need rate controlling agents. Discussed management strategies for symptomatic atrial flutter, including cardioversion, ablation. Discussed that we could consider cardioversion once he has been anticoagulated for 4 weeks. If interested in ablation, can refer to Electrophysiology as an outpatient. (2) Chest pain: Qualifiers: Chest pain type: unspecified Qualified Code(s): R07.9 - Chest pain, unspecified Code(s): R07.9 - Chest pain, unspecified Status: Acute Assessment and Plan: Although his symptoms could be from atrial flutter, given his risk factors for coronary artery disease and exertional chest pain, will obtain Lexiscan. (3) Mixed hyperlipidemia: Code(s): E78.2 - Mixed hyperlipidemia Status: Acute Assessment and Plan: Continue statin. (4) Essential hypertension: Code(s): I10 - Essential (primary) hypertension Status: Acute Assessment and Plan: Stable. Continue Amlodipine. (5) Carotid artery disease: Code(s): I77.9 - Disorder of arteries and arterioles, unspecified Status: Acute Assessment and Plan: Continue statin. History of Present Illness History of Present Illness Consult date/time: 12/21/23 10:46 Requesting physician: Betina Mack MD Consult reason: chest pain and Other (Atrial flutter) Reason For Visit: Chest Pain Narrative: This is an 82 year old male with history of TIA, carotid artery disease s/p left carotid endarterectomy, hypertension, hyperlipidemia, prostate cancer who presented with chest pain. Patient returned from [place], and for the past week, has been having squeezing substernal chest pain with associated shortness of breath with exertion, and sometimes at night when laying down as well. It does improve with rest. ER evaluation showed EKGs with rate controlled atrial flutter, which is a new diagnosis for the patient. Tropnins are negative. CTA negative for PE, there are mild mediastinal and bilateral hilar lymphadenopathy, likely reactive. 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 Carotid artery disease Status post left carotid endarterectomy. Essential hypertension Mixed hyperlipidemia Obstructive sleep apnea Intolerant to PAP therapy. Prostate cancer Status post prostatectomy. Transient ischemic attack (2009) Surgical History Surgical History History of appendectomy (10/2014) History of cardiac catheterization (2007) History of cholecystectomy History of colon resection (10/2014) For cancer of the appendix. History of colonoscopy with polypectomy (03/16/19) History of hemorrhoidectomy (1966) History of left hip replacement (06/01/17) History of left knee replacement (08/31/17) History of left-sided carotid endarterectomy (02/15/08) History of prostatectomy (2000) History of right knee joint replacement (06/07/18) History of splenectomy History of tonsillectomy (1948) Family History Family History
--- NOTE | 2023-12-21 15:24 | PM.IMPN ---
Progress Note: A&P Assessment and Plan (1) Chest pain: Code(s): R07.9 - Chest pain, unspecified Status: Acute Assessment and Plan: 12/21/2023: Lexiscan stress test was negative for any ischemia or infarct, LV ejection fraction measuring greater than 70% Stress test nuclear medicine did not reveal any abnormal ST/T-wave changes Cardiology following Nitroglycerin ordered PRN (2) Atrial flutter: Code(s): I48.92 - Unspecified atrial flutter Status: Acute Assessment and Plan: 12/21/2023: EKG showing a flutter which is a new onset Plan for LAWRENCE with cardioversion tomorrow with Cardiology as long as there is no emboli on the LAWRENCE NPO after midnight Cardiology ordering Eliquis CTA of the chest was negative for any PE, showed mild mediastinal and bilateral hilar lymphadenopathy, likely reactive Chest x-ray showed chronic atelectasis/scarring at the left lung base (3) Essential hypertension: Code(s): I10 - Essential (primary) hypertension Status: Acute Assessment and Plan: 01/10/2024: Blood pressure ranging 142/77 to 158/78 Continue amlodipine (4) Mixed hyperlipidemia: Code(s): E78.2 - Mixed hyperlipidemia Status: Acute Assessment and Plan: 01/10/24: Continue aspirin and rosuvastatin (5) Obstructive sleep apnea: Code(s): G47.33 - Obstructive sleep apnea (adult) (pediatric) Status: Acute Assessment and Plan: 12/21/2023: Patient has history of sleep apnea does wear CPAP at night Discussed with patient that the sleep apnea can be causing his heart issues and he agrees that he needs to be worked up for this. He will call his primary care physician to set up a sleep study on an outpatient basis once discharged. Time Spent With Patient Time with patient: 25 - 35 minutes Subjective Date/time seen: 12/21/23 15:24 Interval history: This is an 82-year-old male presented to the hospital on 12/20/2023 with chief complaint of chest pain. Workup in the hospital included a chest x-ray which showed chronic atelectasis/scarring at the left lung base, no acute cardiopulmonary disease. Chest CTA was negative for PE, mild mediastinal and bilateral hilar lymphadenopathy, likely reactive. EKG showed a flutter with a flutter with a rate of 68. Patient had a nuclear med stress test done which was negative for any abnormal ST T wave changes. Lexiscan stress test did not show any ischemia or infarct, normal left ventricular ejection fraction measuring greater than 70%. Echocardiogram today shown normal LV systolic function with an estimated EF of 70%, grade 1 diastolic dysfunction, normal RV systolic function. Initial labs showed hemoglobin of 13.1, bicarb 20, EGFR 53, creatinine 1.3, troponin x3 was negative, lipase 110, TSH 1.83. Cardiology was consulted and is recommending anticoagulation for his a flutter. On examination today patient is alert oriented x3, lying in the bed. is at the bedside. He denies any fever, chills, nausea, vomiting, diarrhea, abdominal pain, chest pain, shortness a breath, headache, vision changes, lightheadedness, dizziness. Labs today show a hemoglobin of 13.2, bicarb 20, creatinine 1.4, EGFR 49. Plan is for cardioversion tomorrow. He will be NPO after midnight. Cardiology will start him on Eliquis as well. Review of Systems Review of Systems: 12 systems were reviewed and are negative except for as per HPI. All systems reviewed & are unremarkable except as noted in HPI and below Constitutional: Constitutional: Reports as per HPI and Reports no additional constitutional complaints Eyes: Eyes: Reports as per HPI and Reports no additional eye complaints ENT: Reports system reviewed and no additional complaints, except as documented and Reports as per HPI Cardiovascular: Cardiovascular: Reports as per HPI and Reports no additional cardiovascular complaints Respiratory: Respiratory: Reports as per HPI and Re
[2023-12-21] MEDS: APIXABAN 5 MG TABLET PO (20:35)
[2023-12-22] VITALS (22 sets, daily range): BP systolic 97–153; BP diastolic 60–84; PULSE 54–83; RESP 12–20; TEMP 36.4–36.9; O2SAT 91–97
[2023-12-22] MEDS: amLODIPine BESYLATE 5 MG TABLET 10 MG PO (08:40)
[2023-12-22] MEDS: ASPIRIN 81 MG CHEWABLE TABLET PO (08:40)
[2023-12-22] MEDS: PANTOPRAZOLE 40 MG TABLET PO (08:41)
[2023-12-22] MEDS: ROSUVASTATIN 10 MG TABLET PO (08:41)
[2023-12-22] MEDS: APIXABAN 5 MG TABLET PO (08:41)
--- NOTE | 2023-12-22 08:43 | PC.NURSE ---
pt to cardiac laborer shaft sinking for procedure today. Vitals stable and report given to nurse.
--- NOTE | 2023-12-22 09:00 | ECG_ITS ---
SEE SCANNED COPY FOR CONFIRMED REPORT MTDD
--- NOTE | 2023-12-22 09:16 | PM.PNCARD ---
Progress Note: A&P Assessment and Plan (1) Atrial flutter: Code(s): I48.92 - Unspecified atrial flutter Status: Acute Assessment and Plan: New diagnosis for the patient. Discussed the diagnosis of atrial flutter with the patient and management steps. TSH level is normal. Echocardiogram shows LVEF >70%, moderate biatrial enlargement, mild MR, mild TR. [id number] is 6 for age, hypertension, TIA, vascular disease. Recommend anticoagulation. Discussed indication for anticoagulation, risks vs benefits. Patient is agreeable. Started on Eliquis. LAWRENCE-guided DCCV was successful. Patient converted to sinus rhythm with 1 shock at 200 joules. Okay for discharge home later today. Will arrange close follow up with Dr. Littlejohn. (2) Chest pain: Qualifiers: Chest pain type: unspecified Qualified Code(s): R07.9 - Chest pain, unspecified Code(s): R07.9 - Chest pain, unspecified Status: Acute Assessment and Plan: Although his symptoms could be from atrial flutter, given his risk factors for coronary artery disease and exertional chest pain, Lexiscan was done, which was negative for ischemia or infarction. (3) Mixed hyperlipidemia: Code(s): E78.2 - Mixed hyperlipidemia Status: Acute Assessment and Plan: Continue statin. (4) Essential hypertension: Code(s): I10 - Essential (primary) hypertension Status: Acute Assessment and Plan: Stable. Continue Amlodipine. (5) Carotid artery disease: Code(s): I77.9 - Disorder of arteries and arterioles, unspecified Status: Acute Assessment and Plan: Continue statin. Plan Recommendations and plan discussed with Hospitalist. Subjective Date/time seen: 12/22/23 09:16 Interval history: Reason for visit: Atrial flutter HPI: This is an 82 year old male with history of TIA, carotid artery disease s/p left carotid endarterectomy, hypertension, hyperlipidemia, prostate cancer who presented with chest pain. Patient returned from [place], and for the past week, has been having squeezing substernal chest pain with associated shortness of breath with exertion, and sometimes at night when laying down as well. It does improve with rest. ER evaluation showed EKGs with rate controlled atrial flutter, which is a new diagnosis for the patient. Tropnins are negative. CTA negative for PE, there are mild mediastinal and bilateral hilar lymphadenopathy, likely reactive. Date of service 12/21: Remains in rate controlled atrial flutter. LAWRENCE/DCCV today. Review of Systems Review of Systems: All systems reviewed & are unremarkable except as noted in HPI and below (HPI) Exam Const: General: comfortable and no acute distress HENMT: Mouth: Yes moist mucous membranes Eyes: General: appearance normal, both eyes and all related structures Sclera: sclerae normal Resp: Effort & Inspection: normal respiratory effort Cardio: Other: Rate controlled atrial flutter Skin: General skin exam: normal color Neuro: Speech: normal speech Psych: Mental Status: mental status grossly normal Affect: normal affect Objective Data Vital Signs Vital Signs: Vital Signs - 24 hr 12/21/23 10:00 12/21/23 12:00 12/21/23 12:00 Temperature 36.6 C Pulse Rate 68 68 68 Respiratory Rate 20 Blood Pressure 142/77 H Pulse Oximetry 95 Oxygen Delivery 12/21/23 14:00 12/21/23 16:00 12/21/23 16:00 Temperature 36.6 C Pulse Rate 67 67 66 Respiratory Rate 24 H Blood Pressure 140/75 Pulse Oximetry 96 Oxygen Delivery 12/21/23 18:00 12/21/23 20:13 12/21/23 20:00 Temperature 36.5 C Pulse Rate 67 66 65 Respiratory Rate 18 Blood Pressure 131/71 Pulse Oximetry 92 Oxygen Delivery 12/21/23 20:00 12/21/23 23:45 12/21/23 22:00 Temperature 36.4 C Pulse Rate 65 108 H 58 L Respiratory Rate 18 20 Blood Pressure 119/78 Pulse Oximetry 92 95 Oxygen Delivery Room Air 12/21
--- NOTE | 2023-12-22 09:21 | WPDMODSED ---
Moderate Sedation Note-Pt Data Patient Data Diagnosis: Atrial flutter Present Complaint: Atrial flutter Procedure to be performed/Plan: LAWRENCE-guided synchronized electrical cardioversion Allergies Allergy/AdvReac Type Severity Reaction Status Date / Time No Known Allergies Allergy Verified 12/01/23 08:26 Home Medications Medication Instructions Recorded Confirmed Type rosuvastatin 10 mg tablet (Crestor) 10 mg PO DAILY 10/11/19 12/20/23 History amlodipine 10 mg tablet 10 mg PO DAILY #90 tabs 02/11/23 12/20/23 Rx omeprazole 20 mg capsule,delayed 20 mg PO DAILY #100 caps 10/10/23 12/20/23 Rx release Current Medications: Active Medications Acetaminophen (Acetaminophen 325 Mg Tablet) 650 mg PO Q6H PRN PRN Reason: Mild Pain (1-3) or Fever Amlodipine Besylate (Amlodipine Besylate 5 Mg Tablet) 10 mg PO DAILY [facility] Last Admin: 12/22/23 08:40 Dose: 10 mg Apixaban (Apixaban 5 Mg Tablet) 5 mg PO Q12HR [facility] Last Admin: 12/22/23 08:41 Dose: 5 mg Aspirin (Aspirin 81 Mg Chewable Tablet) 81 mg PO DAILY@0800 [facility] Last Admin: 12/22/23 08:40 Dose: 81 mg Morphine Sulfate (Morphine Sulfate (*Crx) 2 Mg/Ml Inj) 2 mg IV PUSH Q2H PRN PRN Reason: Pain Rated 7-10 Nitroglycerin (Nitroglycerin Sl 0.4 Mg Tablet) 0.4 mg SUBLINGUAL Q5MIN PRN PRN Reason: Chest Pain Ondansetron HCl (Ondansetron Inj 4 Mg/2 Ml Vial) 4 mg IV PUSH Q4H PRN PRN Reason: Nausea Pantoprazole Sodium (Pantoprazole 40 Mg Tablet) 40 mg PO QAM [facility] Last Admin: 12/22/23 08:41 Dose: 40 mg Rosuvastatin Calcium (Rosuvastatin 10 Mg Tablet) 10 mg PO DAILY [facility] Last Admin: 12/22/23 08:41 Dose: 10 mg Sedation/Anesthesia: No previous sedation/anesthesia problems (including family history). 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 Carotid artery disease Status post left carotid endarterectomy. Essential hypertension Mixed hyperlipidemia Obstructive sleep apnea Intolerant to PAP therapy. Prostate cancer Status post prostatectomy. Transient ischemic attack (2009) Surgical History Surgical History History of appendectomy (10/2014) History of cardiac catheterization (2007) History of cholecystectomy History of colon resection (10/2014) For cancer of the appendix. History of colonoscopy with polypectomy (03/16/19) History of hemorrhoidectomy (1966) History of left hip replacement (06/01/17) History of left knee replacement (08/31/17) History of left-sided carotid endarterectomy (02/15/08) History of prostatectomy (2000) History of right knee joint replacement (06/07/18) History of splenectomy History of tonsillectomy (1948) Family History Family History Father Family history of lung cancer Tobacco abuse Mother Family history of lung cancer Tobacco abuse COPD (chronic obstructive pulmonary disease) Sibling , cancer Alcoholism Heart disease Suicide Other Family history of cardiovascular disease Family history of coronary artery disease Hypertension Social History Social History Social History: Surrogate medical decision maker: Shira Chu, spouse. Code status: Full code. Smoking status: Never smoker Second hand tobacco smoke exposure: Yes Alcohol intake: current Drinks per week: 1 Alcohol use details: social Substance use: never Substance use type: does not use Do You Feel Safe in your Home?: Yes Lack of Transportation: No Lack of Food: Never True Current Housing: I Have Housing Concerned About Future Housing: No Difficulty Paying Gas/Electric Bills: No Difficulty Paying for Meds: No Curr
--- NOTE | 2023-12-22 09:45 | ECG_ITS ---
SEE SCANNED COPY FOR CONFIRMED REPORT MTDD
--- NOTE | 2023-12-22 09:46 | P.PCNTEECA_ITS ---
LAWRENCE with Cardioversion Date of procedure: 12/22/23 Procedure Type: Date of Procedure: 12/22/2023 Brief History Of Present Illness: Patient is a pleasant 82 year old male who is referred for LAWRENCE-guided DCCV. Indication For Procedure: Atrial flutter Procedure In Detail: After verbal and written informed consent was obtained, the patient risks, benefits, and alternatives explained in detail. The patient agreed to proceed wi th the plan of care as outlined above.?The patient was evaluated at bedside in [facility].?The posterior oropharynx, neck, and jaw angle all within normal limits on examination. Lungs were clear to auscultation. See pre-sedation note for further details. The patient was then placed in the appropriate 30 to 45 degree angle supine position at a slight left lateral decubitus position.?Patient was monitored throughout the study with telemetry, oxygen saturation, end-tidal CO2 monitoring, blood pressure, heart rate, and respirations.? The posterior hypopharynx was then locally anesthetized using repeated administration of Hurricaine spray as well as gargled viscous lidocaine.? After local anesthetic of the posterior hypopharynx was achieved and the oral bite block placed, moderate sedation was administered.? After confirmation of adequate moderate sedation, the transesophageal echocardiogram probe was advanced through the oral bite block into the posterior hypopharynx and into the esophagus easily and without complication.? Multiple, multiplanar echocardiographic images were obtained in multiple standard re- projections.? At the conclusion of the study, the transesophageal echocardiogram probe was removed easily and without complication.? The patient tolerated the procedure well without difficulty.? Moderate Sedation/Anesthesia administration: Patient reports no prior problems with sedation/anesthesia. Please see pre- sedation noted for physical examination documentation. As noted above, after adequate local anesthesia of the posterior hypopharynx was achieved, a total of? Versed 2mg, Fentanyl 75mcg, and total of Propofol 30mg IV in multiple divided doses was administered for moderate sedation.? Sedation start time was 09:23 and end time was 09:40 for a total intra-service/procedure face-face time of? 17 minutes.? Sedation was administered by a qualified/certified observer?Patito Mejia RN under my supervision with intra-procedure [id number] observation and management throughout the entirety of the procedure. The Propofol was administered by me personally. There were no other issues or complications and patient tolerated the procedure well. See post-anesthesia documentation. FINDINGS: LEFT ATRIUM / ATRIAL APPENDAGE: Smoke noted in the left atrium, JOHAN. No evidence of thrombus. Definity was administered by better visualization of JOHAN. CARDIOVERSION: Defibrillator pads were placed in an AP position. Once patient was adequately sedated, synchronized electrical cardioversion was performed with 1 shock at 200 joules, which restored sinus rhythm. CONCLUSION: Successful cardioversion to sinus rhythm with 1 shock at 200 joules. Complications: None This dictation may have been done utilizing a voice recognition system.? Attempts have been made to correct errors. However, there may be uncorrected grammatical, spelling, and recognition errors present.
--- NOTE | 2023-12-22 11:30 | PM.DS ---
DS: Admitting Diagnosis Discharge Date 12/22/23 Admitting Diagnosis Chest pain atrial flutter HTN Mixed hyperlipidemia ROSA DS: Discharge Diagnosis Discharge Diagnosis (1) Chest pain: Code(s): R07.9 - Chest pain, unspecified Status: Acute (2) Atrial flutter: Code(s): I48.92 - Unspecified atrial flutter Status: Acute (3) Essential hypertension: Code(s): I10 - Essential (primary) hypertension Status: Acute (4) Mixed hyperlipidemia: Code(s): E78.2 - Mixed hyperlipidemia Status: Acute (5) Obstructive sleep apnea: Code(s): G47.33 - Obstructive sleep apnea (adult) (pediatric) Status: Acute DS: Summary Hospital Course Reason for hospitalization: Chest pain atrial flutter HTN Mixed hyperlipidemia ROSA Hospital Course: 12/21/23: Interval history: This is an 82-year-old male presented to the hospital on 12/20/2023 with chief complaint of chest pain.? Workup in the hospital included a chest x-ray which showed chronic atelectasis/scarring at the left lung base, no acute cardiopulmonary disease.? Chest CTA was negative for PE, mild mediastinal and bilateral hilar lymphadenopathy, likely reactive.? EKG showed a flutter with a flutter with a rate of 68.? Patient had a nuclear med stress test done which was negative for any abnormal ST T wave changes.? Lexiscan stress test did not show any ischemia or infarct, normal left ventricular ejection fraction measuring greater than 70%.? Echocardiogram today shown normal LV systolic function with an estimated EF of 70%, grade 1 diastolic dysfunction, normal RV systolic function.? Initial labs showed hemoglobin of 13.1, bicarb 20, EGFR 53, creatinine 1.3, troponin x3 was negative, lipase 110, TSH 1.83.? Cardiology was consulted and is recommending anticoagulation for his a flutter. On examination today patient is alert oriented x3, lying in the bed.? is at the bedside.? He denies any fever, chills, nausea, vomiting, diarrhea, abdominal pain, chest pain, shortness a breath, headache, vision changes, lightheadedness, dizziness. Labs today show a hemoglobin of 13.2, bicarb 20, creatinine 1.4, EGFR 49.? Plan is for cardioversion tomorrow.? He will be NPO after midnight.? Cardiology will start him on Eliquis as well. 12/22/23: Patient denies any new complaints today. He had cardioversion today with Cardiology services. He is now back in NSR. Cardiology cleared him for discharge today. Labs today revealed Hgb 13.2, bicarb 20, creatinine 1.40, eGFR 49, TSH 1.830. Patient is stable for discharge at this time. He will be on Eliquis BID and will follow up with Cardiology on an outpatient basis. He will also follow up with his PCP in 1 week for referral for sleep study and C pap. Final diagnosis: Atrial flutter, ROSA, chest pain Status at Discharge Cognitive/behavioral status at discharge: Alert and oriented x4 Functional status at discharge: independent ambulation Overall status at discharge: patient is progressing back to baseline Time Spent with Patient Time attestation: Total time spent providing and/or coordinating discharge services: Time spent: Greater than 30 minutes Exam Narrative: General: In no acute distress, well nourished Head: atraumatic, no encephalopathy Eyes: EOMI, PERRLA, sclera clear ENT: moist mucous membranes, nasal passages clear Neck: supple, no JVD, no adenopathy, trachea midline Cardiac: Normal S1 and S2. NSR, No murmur, gallops or friction rubs, peripheral pulses intact. Respiratory: Lungs clear to auscultation, no adventitious lung sounds, currently on room air Gastrointestinal: soft, non-distended, non-tender, normoactive bowel sounds. : voiding without difficulty. Extremities: moves all extremities well, no edema, good ROM, strength 5/5 Skin: clean, dry, intact. No wounds or lesions. Neuro: Alert and oriented x4, cranial nerves intact, no neuro deficits. Psych: normal mood, normal affect, interactive DS: [place]
== END 2023-12-22 12:42 | disposition home or self-care (01) | DRG 309 ==
LOC: ANHED 12:48 → ANHIMU 15:56
PROVIDERS: Emergency Medicine; Internal Medicine; Physician Assistant; Admitting Provider Family Medicine; Emergency Provider General Practice; PCP Family Medicine; Visit Provider Nurse Practitioner Acute Care
PROC: 5A2204Z Restoration of Cardiac Rhythm, Single (ICD-10-PCS; CPT 93312; principal; 2023-12-22 09:00)
PROC: 5A2204Z Restoration of Cardiac Rhythm, Single (ICD-10-PCS; 2023-12-22 09:00)
DX: I48.92 Unspecified atrial flutter (principal); J98.11 Atelectasis; E78.2 Mixed hyperlipidemia; G47.33 Obstructive sleep apnea (adult) (pediatric); I10 Essential (primary) hypertension; I25.10 Atherosclerotic heart disease of native coronary artery without angina pectoris; I77.9 Disorder of arteries and arterioles, unspecified; R59.1 Generalized enlarged lymph nodes; Z85.46 Personal history of malignant neoplasm of prostate; Z86.73 Personal history of transient ischemic attack (TIA), and cerebral infarction without residual deficits; Z85.89 Personal history of malignant neoplasm of other organs and systems; Z90.49 Acquired absence of other specified parts of digestive tract; Z96.642 Presence of left artificial hip joint; Z96.653 Presence of artificial knee joint, bilateral; Z90.79 Acquired absence of other genital organ(s); Z90.81 Acquired absence of spleen; Z99.89 Dependence on other enabling machines and devices
CPT/HCPCS: 36415; 71046; 71275; 78452; 80048; 80053; 83690; 83735; 84443; 84484; 85025; 85027; 85380; 85610; 85730; 92960; 93005; 93017; 96372; 96374; 99285; A9270; A9502; C8925; C8929; G0378; J1650; J2250; J2704; J2785; J3010; J7040; Q9957; Q9967

== ENCOUNTER 2024-01-18 09:03 | Outpatient (CLI) | payer MEDICARE, OTHER, SELFPAY ==
[2024-01-18 11:08] LABS: Estimated Glomerular Filt Rate 49
[2024-01-18 11:15] LABS: Urine Cotinine NEGATIVE
[2024-01-18 12:10] LABS: MRSA (PCR) NOT DETECTED (NOT DETECTE)
== END 2024-01-18 09:04 | disposition home or self-care (01) ==
LOC: ANHSURGERY 09:40
PROVIDERS: PCP Family Medicine; Visit Provider Orthopaedic Surgery
DX: Z01.818 Encounter for other preprocedural examination (principal); M16.11 Unilateral primary osteoarthritis, right hip
CPT/HCPCS: 80307; 82565; 87641

== ENCOUNTER 2024-01-25 09:11 | Outpatient (CLI) | payer MEDICARE, OTHER, SELFPAY ==
--- NOTE | 2024-02-21 13:07 | WPDSLEEPSTUD ---
Sleep Study Date of Study: 01/25/24 Ordering Provider: Tee Padilla MD Interpreting Physician: Negar Heller DO Sleep Study Type: Split Polysomnogram Height: 1.75 m Weight: 87.997 kg Body Mass Index: 28.6 Neck Circumference (inches): 16 [place]: 2 Reason for Sleep Study Nocturia, daytime hypersomnia Sleep History The patient is an 83-year-old male that had a sleep study ordered by his primary care physician for evaluation of sleep apnea. The patient frequently awakens from sleep short of breath. He rarely awakens at night with heartburn, belching or cough. He frequently snores and a is occasionally loud enough that others complain. He frequently has trouble sleeping when he has a cold. He frequently wakes up gasping for air throughout the night. He frequently has breathing problems at night observed by himself or others. He denies sweating excessively at night. He occasionally has heart palpitations or irregular heartbeats during the night. He occasionally falls asleep during the day but never while driving. He frequently experiences loss of muscle tone when extremely emotional. He denies sleep paralysis and hypnagogic/ hypnopompic hallucinations. He denies having trouble at school or work due to sleepiness. He denies feeling afraid of going to sleep. He denies having nightmares. He denies remembering his dreams. He occasionally has thoughts racing through his mind. He rarely feels sad or depressed. He occasionally has anxiety. He occasionally has muscular tension. He denies noticing parts of his body jerk. He denies kicking during the night. He denies having crawling and aching feelings in his legs but frequently has leg pain during the night. He frequently grinds his teeth during sleep but never awakens with morning jaw pain. He is occasionally bothered by pain during the day and occasionally awakened by pain during the night. He rarely wakes up feeling stiff in the morning. He rarely wakes up with sore or achy muscles. He occasionally wakes up with pain in the neck, spine and other joints. He goes to bed at 10:00 p.m. on weekdays and between 11:00 p.m. to 12:00 a.m. on the weekends. The amount of time it takes for him to fall asleep is variable. He wakes up 4-5 times throughout the night to go to the other bedroom. It takes him 10-30 minutes to fall back asleep. He wakes up at 6:30 a.m. on weekdays and at 7:00 a.m. on the weekends. He typically gets 4-6 hours of sleep per night. He will stay in bed for 5-10 minutes after waking up in the morning. He currently lives with his . He denies consuming any caffeinated beverages within 2 hours of bedtime. He denies engaging in physical exercise before bedtime. He will watch television before falling asleep. He will take naps in the afternoon or the evening and they are refreshing. He consumes 3 cups of caffeinated beverage per day. He denies tobacco and recreational drug use. 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 Carotid artery disease Status post left carotid endarterectomy. Essential hypertension Mixed hyperlipidemia Obstructive sleep apnea Intolerant to PAP therapy. Prostate cancer Status post prostatectomy. Transient ischemic attack (2009) Surgical History Surgical History History of appendectomy (10/2014) History of cardiac catheterization (2007) History of cholecystectomy History of colon resection (10/2014) For cancer of the appendix. History of colonoscopy with polypectomy (03/16/19) History of hemorrhoidectomy (1966) History of left hip replacement (06/01/17) History of left knee replacement (08/31/17) History of left-sided carotid endarterectomy (02/15/08) History
[2024-02-21 13:22] VITALS: BMI 28.6
== END 2024-01-26 07:11 | disposition home or self-care (01) ==
LOC: ANHCSM 09:14
PROVIDERS: PCP Family Medicine; Visit Provider Family Medicine
DX: G47.10 Hypersomnia, unspecified (principal); G47.33 Obstructive sleep apnea (adult) (pediatric)
CPT/HCPCS: 95811

== ENCOUNTER 2024-02-02 00:45 | Day surgery (SDC) | payer MEDICARE, OTHER, SELFPAY ==
[2024-02-01 18:32] VITALS: BMI 28.8
[2024-02-02] VITALS (13 sets, daily range): BP systolic 120–176; BP diastolic 60–76; PULSE 60–72; RESP 14–22; TEMP 36.8; O2SAT 93–94; BMI 28.3
[2024-02-02 08:46] LABS: Basophils Absolute Auto 0.1 K/mm3 (0.0-0.1); Basophils Percent Auto 1.3 % (0.2-1.2); Eosinophils Absolute Auto 0.2 K/mm3 (0-0.3); Eosinophils Percent Auto 2.5 % (0-4.4); Hematocrit 41.7 % (42.0-52.0); Hemoglobin 14.1 g/dL (14.0-18.0); Immature Granulocyte Absolute 0.02 K/mm3 (0.00-0.031); Immature Granulocyte Percent A 0.3 % (0-0.5); Lymphocytes Absolute Auto 3.46 K/mm3 (0.9-3.2); Lymphocytes Percent Auto 48.5 % (18.3-44.2); Mean Corpuscular HGB Conc 33.8 g/dl (32-36); Mean Corpuscular Hemoglobin 32.6 pg (26-34); Mean Corpuscular Volume 96.5 fl (80-100); Mean Platelet Volume 9.8 fl (7.4-10.4); Monocytes Absolute Auto 0.7 K/mm3 (0.1-0.6); Monocytes Percent Auto 10.4 % (2.6-8.5); Neutrophils Absolute Auto 2.7 K/mm3 (1.3-6.7); Platelet Count Result 264 k/mm3 (150-375); Red Blood Count 4.32 M/mm3 (4.6-6.20); Red Cell Distribution Width 13.8 % (11.5-14.5); White Blood Count 7.1 K/mm3 (4.5-10.0)
[2024-02-02 08:53] LABS: Prothrombin Time 13.2 Seconds (11.1-14.7)
[2024-02-02 09:01] LABS: Anion Gap 8 mmol/L (4-12); Blood Urea Nitrogen 28 mg/dL (9-20); Calcium 9.2 mg/dL (8.4-10.2); Carbon Dioxide 23 mmol/L (22-30); Chloride 110 mmol/L (98-107); Estimated CRCL calculation 39 ml/min; Estimated Glomerular Filt Rate 53; Glucose 100 mg/dL (65-110); Potassium 4.2 mmol/L (3.4-5.0); Sodium 141 mmol/L (137-145)
--- NOTE | 2024-02-02 09:04 | WPDHPUPDATE1 ---
History and Physical Update Update Date/Time: 02/02/24 09:04 History and Physical has been reviewed, including an updated exam of the patient. There are NO changes in the patient's condition. Risks, benefits, and alternatives have been discussed and questions answered. Patient agrees to proceed with procedure.
--- NOTE | 2024-02-02 09:04 | WPDMODSED ---
Moderate Sedation Note-Pt Data Patient Data Diagnosis: Chest pain Present Complaint: Chest pain Procedure to be performed/Plan: Coronary angiography, left heart cath, +/- PCI Allergies Allergy/AdvReac Type Severity Reaction Status Date / Time No Known Allergies Allergy Verified 02/02/24 08:28 Home Medications Medication Instructions Recorded Confirmed Type rosuvastatin 10 mg tablet (Crestor) 10 mg PO DAILY 10/11/19 02/02/24 History amlodipine 10 mg tablet 10 mg PO DAILY #90 tabs 02/11/23 02/02/24 Rx apixaban 5 mg tablet (Eliquis) 5 mg PO Q12HR #180 tabs 12/22/23 02/02/24 Rx aspirin 81 mg chewable tablet 81 mg PO DAILY@0800 #30 tabs 12/22/23 02/02/24 Rx (Children's Aspirin) omeprazole 20 mg capsule,delayed 20 mg PO DAILY 02/01/24 02/02/24 History release Current Medications: Active Medications Sodium Chloride (Normal Saline Iv) 500 mls @ 100 mls/hr IV CONT .Q5H SABRINA Sedation/Anesthesia: No previous sedation/anesthesia problems (including family history). 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 Carotid artery disease Status post left carotid endarterectomy. Essential hypertension Mixed hyperlipidemia Obstructive sleep apnea Intolerant to PAP therapy. Prostate cancer Status post prostatectomy. Transient ischemic attack (2009) Surgical History Surgical History History of appendectomy (10/2014) History of cardiac catheterization (2007) History of cholecystectomy History of colon resection (10/2014) For cancer of the appendix. History of colonoscopy with polypectomy (03/16/19) History of hemorrhoidectomy (1966) History of left hip replacement (06/01/17) History of left knee replacement (08/31/17) History of left-sided carotid endarterectomy (02/15/08) History of prostatectomy (2000) History of right knee joint replacement (06/07/18) History of splenectomy History of tonsillectomy (1948) Family History Family History Father Family history of lung cancer Tobacco abuse Mother Family history of lung cancer Tobacco abuse COPD (chronic obstructive pulmonary disease) Sibling , cancer Alcoholism Heart disease Suicide Other Family history of cardiovascular disease Family history of coronary artery disease Hypertension Social History Social History Social History: Surrogate medical decision maker: Shira Chu, spouse. Code status: Full code. Smoking packs per day: 0 Smoking cigarettes per day: 0.0 Years smoked: 0 Smoking pack-years: 0.00 Smoking status: Never smoker Tobacco type: smokeless tobacco Smokeless tobacco user: chewing tobacco Second hand tobacco smoke exposure: No Additional smoking assessment comments: STATES QUITTING CHEWING 2003, DENIES ALL FORMS OF TOBACCO USE Alcohol intake: current Drinks per week: 2 Alcohol use details: LIQUOR X 2 DRINKS WEEKLY Substance use: never Substance use type: does not use Do You Feel Safe in your Home?: Yes Lack of Transportation: No Lack of Food: Never True Current Housing: I Have Housing Concerned About Future Housing: No Difficulty Paying Gas/Electric Bills: No Difficulty Paying for Meds: No Currently Unemployed: No Education: Associate Degree Difficulty w/ Childcare or Family Care: No Living arrangements: with family Additional living arrangements comments: Lives with spouse in [place]. 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 Spiritual care concerns: No Mod Sed Physical Exam Physical Exam Pre Pro
--- NOTE | 2024-02-02 10:30 | WPDCARDPROC ---
Cardiac Cath Procedure Note Date of procedure:: 02/02/24 Performing physician:: CATHETERIZATION LABORATORY REPORT Procedure Date: 02/02/2024 Chef'S Assistant: Farzad Fraga M.D., [facility]? Referring Physician: Dr. Littlejohn ? Anesthesia: Versed and Fentanyl were ordered and given in my presence at 09:50, procedure ended at 10:22. Supervision of nurse monitored moderate sedation with Versed and Fentanyl was provided for 32 minutes. Total of Versed 1mg and Fentanyl 50mcg were administered by the Director Of Informatics VANNESSA Almanzar. Pre-op Diagnosis: Coronary artery disease Post-op Diagnosis: 1. Mild non-obstructive coronary artery disease 2. Elevated left ventricular end-diastolic pressure of 19mmHg Procedure(s): 1. Moderate sedation 2. Ultrasound-guided access of the right radial artery 3. Coronary angiography 4. Left heart catheterization Access Site: Right radial artery Brief History and Clinical Indications: Patient is an 83 year old male who is referred for [facility] for angina. All risks, benefits and alternatives to left heart catheterization with or without percutaneous coronary intervention was discussed at length with the patient. Risk of complications including but not limited to bleeding, infection, arrhythmia, stroke, worsening kidney function, blood loss, groin hematoma, limb loss, emergency coronary artery bypass grafting, and even were discussed with the patient and all questions were answered. The patient understood and wished to proceed. Time out called, patient name, date of , medical record number, allergies, procedure performed, identify Chef'S Assistant, patient and staff member concurred with accurate data, procedure carried on. Findings: LEFT HEART CATHETERIZATION FINDINGS: 1. Left main: The left main coronary artery is widely patent without any significant obstructive disease. 2. Left anterior descending: The LAD and the diagonal branches have mild luminal irregularities without any significant obstructive angiographic disease. 3. Left circumflex: The left circumflex artery and the main marginal branches have mild luminal irregularities without any significant obstructive angiographic disease. 4. Right coronary artery: The mid RCA has very mild disease. Otherwise, remainder of the RCA has mild luminal irregularities without any significant obstructive angiographic disease. The RCA is the dominant vessel. 5. Left ventricle: A. End-diastolic pressure 19 mmHg. B. LV gram deferred. C. No significant gradient across aortic valve on catheter pullback. Description of Procedure: Informed consent signed and placed in the chart. Patient transferred to medical lab specialist room. Prepped and draped in usual sterile fashion. 2% lidocaine injected subcutaneously in right wrist area. 22-gauge venipuncture catheter used to access the right radial artery under ultrasound guidance. 6-FR slender sheath placed in right radial artery. Nitroglycerine and Verapamil were given intraarterial through the sheath. Versacore wire advanced under fluoroscopy 5F Tig 4 diagnostic catheter engaged Left Main Coronary Artery. 5F Tig 4 diagnostic catheter engaged Right Coronary Artery Multiple orthogonal angiogram obtained and reviewed 5F Pigtail diagnostic catheter crossed aortic valve to obtain LVEDP, LV angiogram deferred. Hemostasis was achieved by application of TR band. Post Operative Condition: Stable No significant blood loss Disposition: Home Plan: The patient will be monitored in the recovery area. Discharge home after post-cath bed rest is completed. The above findings were discussed with the referring physician. Continue aggressive medical therapy and risk factor modification. ? Farzad Fraga M.D. Interventional Cardiology
== END 2024-02-02 14:02 | disposition home or self-care (01) ==
PROVIDERS: PCP Family Medicine; Visit Provider Internal Medicine
PROC: 4A023N7 Measurement of Cardiac Sampling and Pressure, Left Heart, Percutaneous Approach (ICD-10-PCS; CPT 93452; principal; 2024-02-02 10:00)
DX: I20.89 Other forms of angina pectoris (principal); I48.92 Unspecified atrial flutter; I10 Essential (primary) hypertension; E78.5 Hyperlipidemia, unspecified; G47.33 Obstructive sleep apnea (adult) (pediatric); Z86.73 Personal history of transient ischemic attack (TIA), and cerebral infarction without residual deficits; Z85.46 Personal history of malignant neoplasm of prostate; Z85.09 Personal history of malignant neoplasm of other digestive organs; Z92.21 Personal history of antineoplastic chemotherapy; Z79.82 Long term (current) use of aspirin; Z79.01 Long term (current) use of anticoagulants; Z90.49 Acquired absence of other specified parts of digestive tract; Z87.891 Personal history of nicotine dependence
CPT/HCPCS: 36415; 80048; 85025; 85610; 93458; A9270; C1769; C1887; C1894; J1644; J2250; J2305; J3010; J7040

== ENCOUNTER 2024-03-04 13:36 | Emergency (ER) | payer MEDICARE, OTHER, SELFPAY ==
[2024-03-04 13:40] VITALS: BP 147/75; PULSE 85; RESP 20; TEMP 36.6; O2SAT 98
[2024-03-04 14:40] LABS: Basophils Absolute Auto 0.1 K/mm3 (0.0-0.1); Basophils Percent Auto 1.6 % (0.2-1.2); Eosinophils Absolute Auto 0.3 K/mm3 (0-0.3); Eosinophils Percent Auto 4.3 % (0-4.4); Hematocrit 41.7 % (42.0-52.0); Hemoglobin 14.2 g/dL (14.0-18.0); Immature Granulocyte Absolute 0.02 K/mm3 (0.00-0.031); Immature Granulocyte Percent A 0.3 % (0-0.5); Lymphocytes Absolute Auto 4.14 K/mm3 (0.9-3.2); Lymphocytes Percent Auto 53.5 % (18.3-44.2); Mean Corpuscular HGB Conc 34.1 g/dl (32-36); Mean Corpuscular Hemoglobin 32.9 pg (26-34); Mean Corpuscular Volume 96.5 fl (80-100); Mean Platelet Volume 9.7 fl (7.4-10.4); Monocytes Absolute Auto 0.8 K/mm3 (0.1-0.6); Monocytes Percent Auto 10.7 % (2.6-8.5); Neutrophils Absolute Auto 2.3 K/mm3 (1.3-6.7); Neutrophils Percent Auto 29.6 % (45.5-73.1); Platelet Count Result 297 k/mm3 (150-375); Red Blood Count 4.32 M/mm3 (4.6-6.20); Red Cell Distribution Width 13.6 % (11.5-14.5); White Blood Count 7.7 K/mm3 (4.5-10.0)
[2024-03-04 14:56] LABS: Anion Gap 12 mmol/L (4-12); Blood Urea Nitrogen 23 mg/dL (9-20); CRP < 0.5 mg/dL (<1.0); Calcium 9.3 mg/dL (8.4-10.2); Carbon Dioxide 24 mmol/L (22-30); Chloride 105 mmol/L (98-107); Estimated CRCL calculation 34 ml/min; Estimated Glomerular Filt Rate 45; Glucose 88 mg/dL (65-110); Potassium 4.4 mmol/L (3.4-5.0); Sodium 141 mmol/L (137-145)
[2024-03-04 15:53] LABS: Erythrocyte Sedimentation Rate 13 mm/hr (0-20)
--- NOTE | 2024-03-04 16:19 | ED.WOUNDLAC ---
HPI - Wound/Laceration General Chief Complaint: Wound/Laceration Stated Complaint: sore on R lower leg Time Seen by Provider: 03/04/24 14:12 Source: patient Mode of arrival: ambulatory Limitations: no limitations History of Present Illness HPI narrative: This is a 83 year old male that presents to the ER for wound to the right lower extremity. Ongoing over the last week. Reports he scraped it on an electrical outlet. Reports he has had some redness and swelling of the area. He has not been evaluated for this yet. Reports some drainage from the area. Denies fevers. Related Data Home Medications Medication Instructions Recorded Confirmed rosuvastatin 10 mg tablet (Crestor) 10 mg PO DAILY 10/11/19 02/22/24 omeprazole 20 mg capsule,delayed 20 mg PO DAILY 02/01/24 02/22/24 release isosorbide mononitrate 30 mg mg PO 02/22/24 02/22/24 tablet,extended release 24 hr Allergies Allergy/AdvReac Type Severity Reaction Status Date / Time No Known Allergies Allergy Verified 03/04/24 13:37 Review of Systems Review of Systems: CONSTITUTIONAL: Denies fever SKIN: Reports redness and swelling All systems reviewed & are unremarkable except as noted in HPI and below PMFSH Past Medical History Medical History 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 Carotid artery disease Status post left carotid endarterectomy. Essential hypertension Mixed hyperlipidemia Obstructive sleep apnea Intolerant to PAP therapy. Prostate cancer Status post prostatectomy. Transient ischemic attack (2009) Surgical History Surgical History History of appendectomy (10/2014) History of cardiac catheterization (2007) History of cholecystectomy History of colon resection (10/2014) For cancer of the appendix. History of colonoscopy with polypectomy (03/16/19) History of hemorrhoidectomy (1966) History of left hip replacement (06/01/17) History of left knee replacement (08/31/17) History of left-sided carotid endarterectomy (02/15/08) History of prostatectomy (2000) History of right knee joint replacement (06/07/18) History of splenectomy History of tonsillectomy (1949) Family History Family History Father Family history of lung cancer Tobacco abuse Mother Family history of lung cancer Tobacco abuse COPD (chronic obstructive pulmonary disease) Sibling , cancer Alcoholism Heart disease Suicide Other Family history of cardiovascular disease Family history of coronary artery disease Hypertension Social History Social History Social History: Surrogate medical decision maker: Shira Chu, spouse. Code status: Full code. Smoking packs per day: 0 Smoking cigarettes per day: 0.0 Years smoked: 0 Smoking pack-years: 0.00 Smoking status: Never smoker Tobacco type: smokeless tobacco Smokeless tobacco user: chewing tobacco Second hand tobacco smoke exposure: No Additional smoking assessment comments: STATES QUITTING CHEWING 2003, DENIES ALL FORMS OF TOBACCO USE Alcohol intake: current Drinks per week: 2 Alcohol use details: LIQUOR X 2 DRINKS WEEKLY Substance use: never Substance use type: does not use Do You Feel Safe in your Home?: Yes Lack of Transportation: No Lack of Food: Never True Current Housing: I Have Housing Concerned About Future Housing: No Difficulty Paying Gas/Electric Bills: No Difficulty Paying for Meds: No Currently Unemployed: No Education: Associate Degree Difficulty w/ Childcare or Family Care: No Living arrangements: with family Additional living arrangements comments: Lives with spouse in [place].
[2024-03-04] MEDS: TETANUS,DIPHTHERIA,AC PERTUSSIS ADULT (0.5 ML) BOOSTRIX IM (16:25)
== END 2024-03-04 16:37 | disposition home or self-care (01) ==
PROVIDERS: Emergency Provider Physician Assistant; PCP Family Medicine
DX: L03.115 Cellulitis of right lower limb (principal); Z23 Encounter for immunization; I25.10 Atherosclerotic heart disease of native coronary artery without angina pectoris; I10 Essential (primary) hypertension; E78.2 Mixed hyperlipidemia; G47.33 Obstructive sleep apnea (adult) (pediatric); Z96.653 Presence of artificial knee joint, bilateral; Z96.642 Presence of left artificial hip joint; Z85.46 Personal history of malignant neoplasm of prostate; Z85.09 Personal history of malignant neoplasm of other digestive organs; Z86.73 Personal history of transient ischemic attack (TIA), and cerebral infarction without residual deficits; Z92.21 Personal history of antineoplastic chemotherapy; Z87.891 Personal history of nicotine dependence; Z90.79 Acquired absence of other genital organ(s); Z90.49 Acquired absence of other specified parts of digestive tract; Z79.82 Long term (current) use of aspirin; Z79.01 Long term (current) use of anticoagulants; Z79.899 Other long term (current) drug therapy; W22.8XXA Striking against or struck by other objects, initial encounter
CPT/HCPCS: 36415; 80048; 85025; 85652; 86140; 87070; 87205; 90471; 90715; 99283

== ENCOUNTER 2024-03-28 09:31 | Outpatient (CLI) | payer MEDICARE, OTHER, SELFPAY ==
--- NOTE | ~2024-03-28 | XR_ITS ---
EXAMINATION: XR chest 2V 03/28/2024 09:59 INDICATION: Pleurisy PROCEDURE: 2 view chest COMPARISON: Comparison to multiple prior studies sequentially, with oldest reviewed study dated 05/05. FINDINGS: The lungs are clear. The cardiomediastinal silhouette is within normal limits. There are no pleural effusions. There is no pneumothorax suspected. Left basilar atelectasis/scarring unchang ed. IMPRESSION: 1: NO ACUTE CARDIOPULMONARY DISEASE. Reviewed, dictated and finalized at location B.
== END 2024-03-28 09:32 ==
PROVIDERS: PCP Family Medicine; Visit Provider Nurse Practitioner Adult Health
DX: R09.1 Pleurisy (principal)
CPT/HCPCS: 71046

== ENCOUNTER 2024-04-24 12:20 | Outpatient (CLI) | payer MEDICARE, OTHER, SELFPAY ==
[2024-04-24 13:24] LABS: Albumin Level 4.3 g/dL (3.5-5.1); Estimated Glomerular Filt Rate 49; Glucose 90 mg/dL (65-110)
[2024-04-24 13:27] LABS: Hemoglobin A1C 6.2 % (<5.7); Urine Cotinine NEGATIVE
[2024-04-24 14:34] LABS: MRSA (PCR) NOT DETECTED (NOT DETECTE)
== END 2024-04-24 12:21 | disposition home or self-care (01) ==
PROVIDERS: PCP Family Medicine; Visit Provider Orthopaedic Surgery
DX: Z01.812 Encounter for preprocedural laboratory examination (principal); M16.11 Unilateral primary osteoarthritis, right hip
CPT/HCPCS: 80307; 82040; 82565; 82947; 83036; 86850; 86900; 86901; 87641

== ENCOUNTER 2024-05-02 02:27 | Day surgery (SDC) | payer MEDICARE, OTHER, SELFPAY ==
[2024-01-18 09:39] VITALS: BP 156/70; PULSE 72; RESP 20; TEMP 37.4; O2SAT 98; BMI 29.5
--- NOTE | 2024-01-18 10:16 | PC.NURSE ---
Report to the Outpatient Waiting Room, entrance under the green pavilion located off [facility], at time _0600_ on date _02/08/24_. Planned Procedure Time: _0730_. Time changes happen often and if your time is changed the preop area will call you the afternoon before. - You and your visitor will be asked to self-screen and do not enter if you have any COVID symptoms. - A mask is optional within the hospital at this time. Patients may have clear liquids (water, carbonated beverages, clear teas, apple juice) until 3 hours prior to surgery (0430 AM) with a maximum of 20 ounces. - No food from midnight until time of surgery Take the following medications with a SIP of water the morning of surgery: _NONE_ DO NOT STOP ANY OF YOUR OTHER PRESCRIPTION MEDICATIONS PRIOR TO SURGERY ?EXCEPT THE FOLLOWING Medications to discontinue per DR. HAYNES -_ASPIRIN 7 DAYS PRIOR TO SURGERY, Date to take last dose 01/31/24, ELIQUIS INSTRUCTED_ Medications to discontinue per ANESTHESIA - MULTIVITAMINS, PRO-BIOTIC AND SUPPLEMENTS 3 DAYS PRIOR TO SURGERY, Date to take last dose 02/04/24_ Please no make-up, nail israeli, hairspray, perfume, deodorant, or body powder the day of surgery. No jewelry (including any body piercings) or valuables the day of surgery, leave them at home. Please take a shower or bath the night before, or the morning of, surgery with an antibacterial soap. Wear comfortable, loose fitting clothing. - Jewelry must be removed prior to entering the operating room. Rings and piercings that are not removed may be cut off. - The hospital will not accept responsibility for valuables. - Please leave all valuables, including medications, at home the day of surgery. If you are going home after surgery, a licensed pick up truck driver must drive you home. - NO public transportation without another adult if you receive anesthesia. - We recommend that an adult stay with you for 24 hours following discharge. - We also recommend that you do not drive, make important decision, drink alcoholic beverages, or take any drugs that were not prescribed by your health care provider for at least 24 hours after your discharge time. Follow any additional instructions given to you from your surgeon. If you or anyone in your household have experienced Covid symptoms in the past week, please notify your surgeon or the nurse liaison at the phone number below for possible testing. Instructions given to _PATIENT_and asked if any additional questions and then verbalized understanding. Patient advised to call surgeon office or pre surgery nurse liaison [phone] if any additional questions.
[2024-04-20 10:05] VITALS: BMI 29.2
--- NOTE | 2024-04-20 10:17 | PC.NURSE ---
Report to the Outpatient Waiting Room, entrance under the green pavilion located off [facility], at time _0600_ on date _[id number]_. Planned Procedure Time: _0730_.? Time changes happen often and if your time is changed the preop area will call you the afternoon before. - You and your visitor will be asked to self-screen and do not enter if you have any COVID symptoms. Please call surgeon if you need to reschedule. - A mask is optional within the hospital at this time. Patients may have clear liquids (water, carbonated beverages, clear teas, apple juice) until 3 hours prior to surgery with a maximum of 20 ounces. - No food from midnight until time of surgery and no smoking Take only the following medications with a SIP of water on the morning of surgery: ____Amlodipine and Isosorbide DO NOT STOP ANY OF YOUR OTHER PRESCRIPTION MEDICATIONS PRIOR TO SURGERY EXCEPT THE FOLLOWING Medications to discontinue per physician ____Stop Aspirin [id number]__Ymrb Eliquis 04-29-[address] Frausto's instructions. Please no make-up, nail frisian, hairspray, perfume, deodorant, or body powder the day of surgery.? No jewelry (including any body piercings) or valuables the day of surgery, leave them at home.? Please take a shower or bath the night before, or the morning of, surgery with an antibacterial soap.? Wear comfortable, loose fitting clothing.? - Jewelry must be removed prior to entering the operating room.? Rings and piercings that are not removed may be cut off. - The hospital will not accept responsibility for valuables.? - Please leave all valuables, including medications, at home the day of surgery. If you are going home after surgery, a licensed delivery driver assistant must drive you home.? - NO public transportation without another adult if you receive anesthesia. - We recommend that an adult stay with you for 24 hours following discharge. - We also recommend that you do not drive, make important decision, drink alcoholic beverages, or take any drugs that were not prescribed by your health care provider for at least 24 hours after your discharge time. Follow any additional instructions given to you from your surgeon. Telephone instructions given to _Karri and Shira__and asked if any additional questions and then verbalized understanding. Patient advised to call surgeon office or pre surgery nurse liaison [phone] if any additional questions.
--- NOTE | 2024-04-20 10:38 | PC.NURSE ---
Spoke with Sommer at Dr Frausto's office about Eliquis. She inquired of Dr Frausto and returned my call with an order to stop Eliquis on 04-29-2024. Patient informed.
[2024-05-02] VITALS (12 sets, daily range): BP systolic 106–154; BP diastolic 60–85; PULSE 60–80; RESP 14–20; TEMP 36.2–37.1; O2SAT 92–98; BMI 29.3
--- NOTE | ~2024-05-02 | XR_ITS ---
EXAMINATION: XR hip RT min 2V DATE: 05/02/2024 09:53 INDICATION: Total right hip arthroplasty. Postop. TECHNIQUE: 2 views of right hip were obtained. COMPARISON: Right hip radiographs 04/12/2024 FINDINGS: There is a total right hip arthroplasty in near-anatomic alignment. No fracture. There are surgical clips overlying the pelvis. There is gas in the soft tissues, consistent with recent surgery . IMPRESSION: 1. Total right hip arthroplasty in near-anatomic alignment. Reviewed, dictated and finalized at location A.
--- NOTE | 2024-05-02 07:14 | WPDANESEPPF ---
Anes - Initial Pre Proc Eval Procedure: Operation Date: 05/02/24 07:30 Proposed Procedures p Right Total Hip Arthroplasty - Rico Frausto MD Date/Time: 05/02/24 07:14 Surgeon: Rico Frausto MD Pre Op Diagnosis: primary OA right hip Patient Data Age: 83 Gender: M Height: 1.75 m Weight: 90 kg Last Vital Signs Temp 37.4 C 01/18/24 09:39 Pulse 72 01/18/24 09:39 Resp 20 01/18/24 09:39 BP 156/70 H 01/18/24 09:39 Pulse Ox 98 01/18/24 09:39 O2 Del Method Room Air 01/18/24 09:39 Allergies Allergy/AdvReac Type Severity Reaction Status Date / Time No Known Allergies Allergy Verified 04/24/24 07:44 Home Medications Medication Instructions Recorded Confirmed Type rosuvastatin 10 mg tablet (Crestor) 10 mg PO DAILY 10/11/19 04/24/24 History apixaban 5 mg tablet (Eliquis) 5 mg PO Q12HR #180 tabs 12/22/23 04/24/24 Rx aspirin 81 mg chewable tablet 81 mg PO DAILY@0800 #30 tabs 12/22/23 04/24/24 Rx (Children's Aspirin) amlodipine 10 mg tablet 10 mg PO DAILY #90 tabs 02/06/24 04/24/24 Rx isosorbide mononitrate 30 mg 30 mg PO DAILY 02/22/24 04/24/24 History tablet,extended release 24 hr omeprazole 20 mg capsule,delayed See Rx Instructions .Route 04/06/24 04/24/24 Rx release .COMPLEX #100 caps Patient hx anesthesia problems: none Family hx anesthesia problems: none Results Review: All pre-operative results and documents have been reviewed as part of the pre-operative evaluation. 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 Carotid artery disease Status post left carotid endarterectomy. Essential hypertension Male stress incontinence Mixed hyperlipidemia Obstructive sleep apnea Intolerant to PAP therapy. Pleurisy Prostate cancer Status post prostatectomy. Transient ischemic attack (2009) Surgical History Surgical History History of appendectomy (10/2014) History of cardiac catheterization (2007) History of cholecystectomy History of colon resection (10/2014) For cancer of the appendix. History of colonoscopy with polypectomy (03/16/19) History of hemorrhoidectomy (1966) History of left hip replacement (06/01/17) History of left knee replacement (08/31/17) History of left-sided carotid endarterectomy (02/15/08) History of prostatectomy (2000) History of right knee joint replacement (06/07/18) History of splenectomy History of tonsillectomy (1948) S/P prostatectomy Family History Family History Father Family history of lung cancer Tobacco abuse Mother Family history of lung cancer Tobacco abuse COPD (chronic obstructive pulmonary disease) Sibling , cancer Alcoholism Heart disease Suicide Other Family history of cardiovascular disease Family history of coronary artery disease Hypertension Social History Social History Social History: Surrogate medical decision maker: Shira Chu, spouse. Code status: Full code. Smoking packs per day: 0 Smoking cigarettes per day: 0.0 Years smoked: 0 Smoking pack-years: 0.00 Smoking status: Never smoker Tobacco type: smokeless tobacco Smokeless tobacco user: chewing tobacco Second hand tobacco smoke exposure: No Additional smoking assessment comments: STATES QUITTING CHEWING 2003, DENIES ALL FORMS OF TOBACCO USE Alcohol intake: current Drinks per week: 1 Alcohol use details: LIQUOR X 2 DRINKS WEEKLY Substance use: never Substance use type: does not use Do You Feel Safe in your Home?: Yes Lack of Transportation: No Lack of Food: Never True Current
--- NOTE | 2024-05-02 07:15 | WPDHPUPDATE1 ---
History and Physical Update Update Date/Time: 05/02/24 07:15 History and Physical has been reviewed, including an updated exam of the patient. There are NO changes in the patient's condition. Risks, benefits, and alternatives have been discussed and questions answered. Patient agrees to proceed with procedure.
[2024-05-02] MEDS: TRANEXAMIC ACID 1,000MG/ISO100 1,000 MG/100 ML BAG 200 MG IVPB (07:21)
[2024-05-02] MEDS: ACETAMINOPHEN 500 MG TABLET 1000 MG PO (07:21)
[2024-05-02] MEDS: LACTATED RINGERS 1,000 ML 30 ML IV CONT ×2 (07:22→09:33)
[2024-05-02] MEDS: ceFAZolin 2 GM/D5W 50 ML 2 GM/50 ML BAG IVPB ×3 (07:35→23:07)
[2024-05-02] MEDS: SODIUM CHLORIDE 0.9% IV 37.7 ML, MORPHINE SULFATE INJ (*CRX) 2 MG, ROPivacaine HCL 1% 2... INFILTRATE (08:20)
--- NOTE | 2024-05-02 09:02 | W.PM.PROC2 ---
Procedure Note - Detailed Date of Procedure 05/02/24 Pre-op Diagnosis Primary OA right hip Post-op Diagnosis Same Procedure Performed Right Total Hip Arthroplasty Surgeon Rico Frausto MD Animal Taxonomist Elinor White PA-C Anesthesia General Findings Good bone quality and stability. Description of Procedure The patient was given preoperative antibiotics. A general anesthetic was administered. The patient was carefully placed in the lateral decubitus position on the PEG board. The shoulders and hips were carefully positioned for component and leg length positioning reference. The hip was prepped and draped in the usual sterile fashion. A longitudinal incision was created over the posterior aspect of the greater trochanter. Careful dissection was brought down through the deep fascia with electrocautery. A minimally invasive optimized posterior approach to the hip was performed. The short external rotators and capsule were taken down in an L-shaped capsulotomy. The tissue was tagged for later repair using number 2 high strength suture. The femoral neck was measured and taken in situ. The femoral head was removed. The acetabulum was carefully exposed. The inferior capsule was released. The labrum was resected. The acetabulum was sequentially reamed to one over the intended cup size. The cup was impacted into position with excellent press-fit. Typical anatomic landmarks, including the bony contact points as well as the inferior transverse acetabular ligament were used to confirm cup positioning with preoperative templating. Attention was turned to the femur, which was carefully exposed. The hip was reamed and then broached sequentially. Excellent press-fit was obtained with the broach. The hip was trialed. Measurements were utilized, including the lesser trochanter as well as the center of the femoral head and the tip of the trochanter, and excellent assessment of the offset and leg lengths were confirmed. The real component was impacted into position. Trialing confirmed appropriate leg length and offset with soft tissue balancing as well apparent feel of the leg, both at the knee and the heel. Soft tissues were assessed using the the iliotibial band. Reduction of the posterior capsule and external rotators were also used as a secondary assessment. The hip was copiously irrigated with pulsatile lavage periodically throughout the procedure. The real components were then assembled and reduced. The hip was stable throughout typical maneuvers, including extension, external rotation to 70 degrees, the position of sleep as well as flexion to 90 degrees with internal rotation past 35 degrees. The shake test confirmed stability without impingement. Osteophytes were removed as necessary. The short external rotators and capsule were repaired back to the posterior trochanter through drill holes. The deep fascia was repaired with running number 2 barbed suture, followed by 2-0 Stratafix suture and 3-0 Stratafix suture in the dermis. Steri-Strips were placed on the skin, followed by a sterile occlusive dressing. There were no complications. Meticulous hemostasis was maintained with the AquaMantys device. The patient was brought to the recovery room in stable condition. There were no complications. Physician transport assistant, Elinor White PA-C, required for surgery; including patient positioning, draping, tissue retraction, maintaining instrument position, hip dislocation/ relocation, wound closure, and dressing placement. Implants The Accolade II hip stem, 132 degree size 5 , was utilized with excellent press-fit. The 54 mm Trident II acetabular component was impacted with excellent press-fit stability. 10 degree elevated polyethylene liner the +2.5, 36 mm Biolox ceramic femoral head was utilized. Estimated Blood Loss 150 Drains No Packing No Pathology None sent Complications No immediate complications Condition Stable Disposition PACU AM
[2024-05-02] MEDS: ACETAMINOPHEN 325 MG TABLET 650 MG PO ×3 (12:09→23:05)
[2024-05-02] MEDS: SENNA/DOCUSATE SODIUM TABLET 2 TAB PO (17:29)
[2024-05-02] MEDS: FAMOTIDINE 20 MG TABLET PO (20:08)
[2024-05-02] MEDS: amLODIPine BESYLATE 10 MG TABLET PO (20:08)
[2024-05-02] MEDS: ROSUVASTATIN 10 MG TABLET PO (20:08)
[2024-05-03 00:02] VITALS: BP 150/87; PULSE 72; RESP 16; TEMP 36.6; O2SAT 94
[2024-05-03 04:01] VITALS: BP 147/70; PULSE 80; RESP 16; TEMP 36.7; O2SAT 94
[2024-05-03] MEDS: ACETAMINOPHEN 325 MG TABLET 650 MG PO (06:04)
[2024-05-03] MEDS: ceFAZolin 2 GM/D5W 50 ML 2 GM/50 ML BAG IVPB (06:04)
[2024-05-03 07:51] LABS: Basophils Absolute Auto 0.1 K/mm3 (0.0-0.1); Basophils Percent Auto 0.5 % (0.2-1.2); Eosinophils Percent Auto 0.1 % (0-4.4); Hematocrit 44.3 % (42.0-52.0); Hemoglobin 14.2 g/dL (14.0-18.0); Immature Granulocyte Percent A 0.7 % (0-0.5); Lymphocytes Absolute Auto 3.24 K/mm3 (0.9-3.2); Lymphocytes Percent Auto 23.6 % (18.3-44.2); Mean Corpuscular HGB Conc 32.1 g/dl (32-36); Mean Corpuscular Volume 99.8 fl (80-100); Mean Platelet Volume 10.1 fl (7.4-10.4); Monocytes Percent Auto 14.3 % (2.6-8.5); Neutrophils Absolute Auto 8.3 K/mm3 (1.3-6.7); Neutrophils Percent Auto 60.8 % (45.5-73.1); Platelet Count Result 247 k/mm3 (150-375); Red Blood Count 4.44 M/mm3 (4.6-6.20); Red Cell Distribution Width 14.1 % (11.5-14.5); White Blood Count 13.7 K/mm3 (4.5-10.0)
[2024-05-03 08:02] LABS: Anion Gap 13 mmol/L (4-12); Blood Urea Nitrogen 25 mg/dL (9-20); Calcium 8.9 mg/dL (8.4-10.2); Carbon Dioxide 20 mmol/L (22-30); Chloride 106 mmol/L (98-107); Estimated CRCL calculation 39 ml/min; Estimated Glomerular Filt Rate 53; Glucose 126 mg/dL (65-110); Potassium 4.5 mmol/L (3.4-5.0); Sodium 139 mmol/L (137-145)
[2024-05-03] MEDS: FAMOTIDINE 20 MG TABLET PO (08:07)
[2024-05-03] MEDS: ASPIRIN 81 MG CHEWABLE TABLET PO (08:07)
[2024-05-03] MEDS: SENNA/DOCUSATE SODIUM TABLET 2 TAB PO (08:07)
--- NOTE | 2024-05-03 08:07 | PM.DS ---
DS: Admitting Diagnosis Discharge Date 05/03/24 Admitting Diagnosis Hip arthritis DS: Discharge Diagnosis Discharge Diagnosis (1) Status post total hip replacement, right: Code(s): Z96.641 - Presence of right artificial hip joint Status: Acute Plan Postop day 1: Total hip arthroplasty. Patient tolerated procedure well. No complications. Pain manageable with pain medication. No numbness or tingling. We had a lengthy discussion regarding postoperative wound care, limitations, expectations, and exercises. Patient shows good understanding. Patient has had initial physical therapy and is tolerating it well. DVT prophylaxis: Continue ASA. Will start Eliquis two days after surgery. Pain medication: Percocet. Patient has followup appointment with Dr. Frausto in 3 weeks DS: Summary Hospital Course Reason for hospitalization: Total hip arthroplasty Hospital Course: Patient tolerated procedure well. Has had initial PT/OT and made good progress. Status at Discharge Functional status at discharge: uses cane/walker Overall status at discharge: patient is progressing back to baseline Time Spent with Patient Time attestation: Total time spent providing and/or coordinating discharge services: Exam Narrative: Overweight 83 y/o male. Resting comfortably in bed. Wearing compression socks bilaterally. Dressing dry and intact with no drainage. Moderate swelling. No ecchymosis. No erythema. No hematoma. Range of motion limited due to pain. Calf nontender. Thigh nontender. Neurologic status intact. No varicosities. Distal pulses palpable. DS: Data Data Completed and Pending Labs on day of discharge: Labs from last 24 hours 05/03/24 05/02/24 07:36 06:52 WBC 13.7 H RBC 4.44 L Hgb 14.2 Hct 44.3 MCV 99.8 MCH 32.0 MCHC 32.1 RDW 14.1 Plt Count 247 MPV 10.1 Immature Gran % (Auto) 0.7 H Neut % (Auto) 60.8 Lymph % (Auto) 23.6 [place] % (Auto) 14.3 H Eos % (Auto) 0.1 Baso % (Auto) 0.5 Lymph # (Auto) 3.24 H [place] # (Auto) 2.0 H Eos # (Auto) 0.0 Baso # (Auto) 0.1 Abs Immat Gran (auto) 0.10 H Absolute Neuts (auto) 8.3 H Absolute Nucleated RBC 0.000 Nucleated RBC % 0.0 Sodium 139 Potassium 4.5 Chloride 106 Carbon Dioxide 20 L Anion Gap 13 H BUN 25 H Creatinine 1.30 Estim Creat Clear Calc 39 Estimated GFR 53 L Glucose 126 H Calcium 8.9 Antibody Screen Negative Discharge Plan Discharge Patient Disposition: Home, Self-Care Discharge Instructions: See green instruction sheets Stand Alone Forms: General Discharge Instructions Follow-up/Referrals: Elinor White PA [Physician Sports Recruiter] - Discharge Medications: New aspirin 81 mg tablet,delayed release (DR/EC) 81 mg PO BID 14 Days Qty: 28 0RF oxycodone-acetaminophen 5-325 mg tablet 1 - 2 tablet PO Q4-6H PRN (Reason: pain) 7 Days Qty: 30 0RF Continued rosuvastatin [Crestor] 10 mg tablet 10 mg PO DAILY Patient Comments: TAKES AT HS isosorbide mononitrate 30 mg tablet extended release 24 hr 30 mg PO DAILY aspirin [Children's Aspirin] 81 mg Tablet,Chewable 81 mg PO DAILY@0800 Qty: 30 0RF amlodipine 10 mg tablet 10 mg PO DAILY Qty: 90 3RF Patient Comments: TAKES AT HS omeprazole 20 mg capsule,delayed release(DR/EC) See Rx Instructions .ROUTE .COMPLEX Qty: 100 0RF Dose Instruction: TAKE 1 CAPSULE BY MOUTH DAILY Rx Instructions: TAKE 1 CAPSULE BY MOUTH DAILY Held Eliquis 5 mg Tablet 5 mg PO Q12HR Qty: 180 3RF Hold Instructions: Resume on 05/05/24. Resume 2 days after surgery
[2024-05-03] MEDS: polyethylene glycoL 3350 17 GM POWD.PACK PO (08:08)
[2024-05-03] MEDS: ISOSORBIDE MONONITRATE 30 MG TAB.ER.24H PO (08:08)
[2024-05-03] MEDS: oxyCODONE/ACETAMINOPHEN (*CRX) 5-325 MG TABLET 1 TABLET PO (09:06)
== END 2024-05-03 11:20 | disposition home or self-care (01) ==
LOC: ANHSURGERY 05:43 → ANH3MED 10:51
PROVIDERS: Physician Assistant Surgical; PCP Family Medicine; Visit Provider Orthopaedic Surgery
PROC: (CPT 27130; principal; 2024-05-02 07:30)
DX: M16.11 Unilateral primary osteoarthritis, right hip (principal); M25.751 Osteophyte, right hip; I10 Essential (primary) hypertension; N39.3 Stress incontinence (female) (male); E78.2 Mixed hyperlipidemia; G47.33 Obstructive sleep apnea (adult) (pediatric); I25.10 Atherosclerotic heart disease of native coronary artery without angina pectoris; Z79.01 Long term (current) use of anticoagulants; Z79.82 Long term (current) use of aspirin; Z98.890 Other specified postprocedural states; Z98.61 Coronary angioplasty status; Z90.49 Acquired absence of other specified parts of digestive tract; Z90.81 Acquired absence of spleen; Z96.642 Presence of left artificial hip joint; Z96.653 Presence of artificial knee joint, bilateral; Z87.891 Personal history of nicotine dependence; Z85.46 Personal history of malignant neoplasm of prostate; Z85.038 Personal history of other malignant neoplasm of large intestine; Z86.73 Personal history of transient ischemic attack (TIA), and cerebral infarction without residual deficits; Z80.1 Family history of malignant neoplasm of trachea, bronchus and lung; Z82.49 Family history of ischemic heart disease and other diseases of the circulatory system
CPT/HCPCS: 27130; 36415; 73502; 80048; 85025; 86850; 86900; 86901; 97110; 97116; 97161; 97165; 97530; 97535; A9270; C1776; J0171; J0690; J1100; J1170; J1885; J2270; J2405; J2704; J2795; J3010; J7120

== ENCOUNTER 2024-05-23 09:59 | Outpatient (CLI) | payer MEDICARE, OTHER, SELFPAY ==
--- NOTE | ~2024-05-23 | XR_ITS ---
AP view of the pelvis and AP and lateral views of the right hip Clinical history: Pain Findings: No acute fracture or dislocation is seen. Bilateral hip arthroplasties are in place. Soft t issues are unremarkable. Impression: No acute abnormality. Bilateral hip arthroplasties in place. Reviewed, dictated and finalized at location . Impression: No acute abnormality. Bilateral hip arthroplasties in place.
== END 2024-05-23 10:00 | disposition home or self-care (01) ==
PROVIDERS: PCP Family Medicine; Visit Provider Orthopaedic Surgery
DX: Z47.1 Aftercare following joint replacement surgery (principal)
CPT/HCPCS: 73502

== ENCOUNTER 2024-07-21 14:18 | Outpatient (CLI) | payer MEDICARE, SELFPAY ==
--- NOTE | ~2024-07-21 | CT_ITS ---
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 Automated exposure control and iterative reconstruction technique were employe d. Exam dose: 855.82 mGy-cm total exam DLP. COMPARISON: 07/22/2023 CT abdomen FINDINGS: There is mild discoid atelectasis and/or scarring in the lower lobes. The spleen is absent. Diffuse hepatic steatosis. Several up to 1.3 cm hypoattenuating hepatic lesions are stable since 07/22, likely hepatic cysts. No new or enlarging hepatic mass is noted. No pancreatic mass lesion, calcification or ductal dilatation. The gallbladder is absent. No bile duct dilatation. Normal morphology of the adrenal glands. No renal mass lesion or urinary tract calculus or hydroureteronephrosis is detected. There is atherosclerotic calcification but normal caliber of the abdominal aorta and iliac arteries. No intraperitoneal or retroperitoneal or pelvic mass lesion or adenopathy or ascites is evident. There is limited visualization of the lower pelvic structures due to extensive streak artifact from b ilateral total hip arthroplasties. There are multiple surgical clips in the prostate bed and along the pelvic sidewalls likely due to pr ostatectomy and bilateral pelvic lymph node dissections. Postoperative change of the right colon including appendectomy. No bowel obstruction or intraperitoneal free air is detected. No suspicious osteolytic or osteoblastic lesions are noted. Degenerative spurring of the thoracic spine. Multilevel degenerative disc disease, including severe degenerative disc disease at L3-4, L4-5 and L5 -S1. Status post bilateral total hip arthroplasty. IMPRESSION: Status post appendectomy; no recurrent appendiceal neoplasm or metastatic disease is hilary ntified Status post bilateral total hip arthroplasty Status post prostatectomy pelvic sidewall node dissection The spleen is absent Hepatic steatosis Stable probable hepatic cysts Reviewed, dictated and finalized at Location A. Reviewed, dictated and finalized at location A. E SHEAR SET UP OPERATOR IMPRESSION: Status post appendectomy; no recurrent appendiceal neoplasm or met astatic disease is identified Status post bilateral total hip arthroplasty Status post prostatectomy pelvic sidewall node dissection The spleen is absent Hepatic steatosis Stable probable hepatic cysts
[2024-07-21 14:39] LABS: Estimated Glomerular Filt Rate 53
== END 2024-07-21 14:19 | disposition home or self-care (01) ==
PROVIDERS: PCP Family Medicine; Visit Provider Internal Medicine Medical Oncology
DX: C18.1 Malignant neoplasm of appendix (principal); K76.0 Fatty (change of) liver, not elsewhere classified
CPT/HCPCS: 74177; Q9967

== ENCOUNTER 2024-10-03 00:46 | Day surgery (SDC) | payer MEDICARE, OTHER, SELFPAY ==
--- NOTE | 2024-09-28 14:45 | PC.NURSE ---
83 yo patient was questioning who had ordered the colonoscopy and if he really needs it. Order shows that Latanya Quinn had ordered this procedure. Matthias is going to call Latanya and see if it's necessary to have this colonoscopy. Only history is personal history of polyps. Patient will call back to let us know if he is going to cancel or not.
[2024-09-29 08:46] VITALS: BMI 28.0
--- NOTE | 2024-09-29 08:48 | SUR.PREOP ---
Spoke with patient regarding medication Eliquis. Patient verbalizes understanding that the last dose is to be taken on 09/30/2024 and the Endoscopist will instruct them when to restart after the procedure.
--- OUTSIDE RECORDS SUMMARY | 2024-10-03 00:48 | XMS_ITS ---
Author Organization [facility] Address [address] [facility] [address] [place] [address] Care Team Providers Care Railroad Engineer Name Role Phone CRISTELA TUBBS Unavailable [phone] REASON FOR VISIT QTC EKG Only Encounters Encounter Location Date Provider Diagnosis [address] [id number] 07/24/2024 CRISTELA TUBBS Plan Of Treatment No Information Progress Notes * Matthias GRULLONDOB: 2 (83 yo M)Acc No.[id number]:07/24/2024 Patient: Matthias ACKERMAN Provider: Skyler Tubbs MD :1940 A ge:83 Y S ex:Male Date:07/24/2024 Address:[address] [place], [place] [id number] Subjective: * Chief Complaints: * 1 . QTC EKG Only. * Medical History: Objective: * Vitals: Assessment: Plan: * Treatment: * * Electronic signature of VINCENT TUBBS MD on 10/03/2024 at 12:48 AM EQUIPMENT MANAGER Sign off status: Pending * Provider: Skyler Tubbs MD Date: 1 09/24/2023 Generated for Ivonne downey/Lexie/eTransmitting on: 0 10/03/2024 12:48 AM EQUIPMENT MANAGER
--- OUTSIDE RECORDS SUMMARY | 2024-10-03 00:48 | XMS_ITS | Clinical Summary ---
Author Organization [facility] Address [address] [place] [address] Care Team Providers Care Intermediate Designer Name Role Phone Unavailable Primary Care Provider Unavailabl e Encounters Date Type Department Care Team Description 09/12/2024 External Device Data STL ABSTRACTION Provider, Abstract 09/06/2024 External Device Data ST[facility] ABSTRACTION Provider, Abstract 09/06/2024 External Device Data ST[facility] ABSTRACTION Provider, Abstract 08/30/2024 External Device Data [facility] ABSTRACTION Provider, Abstract 07/25/2024 External Device Data ST[facility] ABSTRACTION Provider, Abstract 07/24/2024 9:25 AM FARM EQUIPMENT TECHNICIAN Ancillary Procedure [facility] [address] [place] [address] Minesh Galdamez MD Chest pain in adult from Last 3 Months Social History Tobacco Use Types Packs/Day Years Used Date Smoking Tobacco: Never Assessed Sex and Gender Information Value Date Recorded Sex Assigned at Not on file Legal Sex Male 9:27 AM FARM EQUIPMENT TECHNICIAN Gender Identity Not on file Sexual Orientation Not on file Plan of Treatment Health Maintenance Due Date Last Done Comments RSV VACCINE (60+ or ) (1 - 1-dose 75+ series) 2016 INFLUENZA VACCINE (#1) 2024 3, 05/20/2021, 04/17/2020, Additional history exists DTAP/TDAP/TD VACCINES (3 - T d or Tdap) 03/04/2034 03/04/2024, 11/11/2012 PNEUMOCOCCAL VACCINE 65+ YEARS Completed 1 , 05/25/2016, 10/29/2014 ZOSTER VACCINE Completed 09/12/2019, 11/0 03/2019, 10/23/2016, Additional history exists Procedures Procedure Name Priority Date/Time Associated Diagnosis Comments XR CHEST PA AND LATERAL 2 VW Routine 07/24/2024 10:01 AM FARM EQUIPMENT TECHNICIAN Chest pain in adult from Last 3 Months Results * XR CHEST PA AND LATERAL 2 VW (07/24/2024 10:01 AM FARM EQUIPMENT TECHNICIAN) Anatomical Region Laterality Modality Chest Computed Radiogr aphy 07/24/2024 10:0 1 AM FARM EQUIPMENT TECHNICIAN Impressions 07/24/2024 10:04 AM FARM EQUIPMENT TECHNICIAN IMPRESSION: 1. No acute cardiopulmonary process. Narrative 07/24/2024 10:04 AM FARM EQUIPMENT TECHNICIAN EXAM: XR CHEST PA AND LATERAL 2 VW DATE: 07/24/2024 HISTORY: Chest pain in adult COMPARISON: None. FINDINGS: The lungs, pleura, cardiomediastinal silhouette, and bony thorax are normal. Mild left basilar atelectasis is noted. Procedure Note George Morejon, DO - 07/24/2024 EXAM: XR CHEST PA AND LATERAL 2 VW DATE: 07/24/2024 HISTORY: Chest pain in adult COMPARISON: None. FINDINGS: The lungs, pleura, cardiomediastinal silhouette, and bony thorax are normal. Mild left basilar atelectasis is noted. IMPRESSION: 1. No acute cardiopulmonary process. Minesh Galdamez MD DIAGNOSTIC IMAGING ORDERABLES F inal Result from Last 3 Months Insurance [employer]
--- OUTSIDE RECORDS SUMMARY | 2024-10-03 00:48 | XMS_ITS | Clinical Summary ---
Author Organization [facility] Address [address] [place] [address] Care Team Providers Care Booking Agent Name Role Phone Tee Padilla MD Primary Care Provider [phone] Chester Cerda DO Unavailable [phone] Allergies No known active allergies Medications ascorbic acid (ascorbic acid with silvia hips) 500 mg tablet take 1 Tablet by Oral route 3 times every day 0 0 04/18/2013 Active amLODIPine (NORVASC) 10 mg tablet Take one by mouth one time per day 30 5 03/08/2008 Active glucosamine-jemal droitin 500-400 mg capsule Take by mouth Active multivitamin with minerals tablet Take by mouth daily Active zinc 50 mg tablet Take by mouth Active rosuvastatin (CRESTOR) 10 mg tablet TAKE 1 TABLET BY MOUTH DAILY 90 tablet 3 12/08/2023 Active Eliquis 5 mg tablet Take 1 tablet (5 mg total) by mouth every 12 (twelve) hours 12/22/2023 Active aspirin 81 mg chewable tablet CHEW AND SWALLOW 1 TABLET BY MOUTH DAILY AT 8 AM 12/23/2023 Active isosorbide mononitrate ER (IMDUR) 30 mg 24 hr tabletIndication s:Microvascular angina (HCC) Take 1 tablet (30 mg total) by mouth daily 90 tablet 3 02/18/2024 02/18/20 25 Active omeprazole (PriLOSEC) 20 mg capsule Take 1 capsule (20 mg total) by mouth daily 07/03/2024 Active Active Problems Problem Noted Date Diagnosed Date Carotid atherosclerosis 05/05/2019 History of TIA (transient ischemic attack) 05/05 Abnormality of aortic valve 10/13/2018 Other chest pain 10/13/2018 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 Encounters Date Type Department Care Team Description 07/28/2024 1:15 PM ASBESTOS TEXTILE SUPERVISOR Office Visit [facility] [place]note 2][address] [facility] [address] [place] [address] Chester Cerda, Cancer of appendix ([facility] ([facility]) (Primary Dx) from Last 3 Months Immunizations Immunization Administration Dates Next Due Hib (PRP-T) 10/29/2014 Influenza, Trivalent, Adjuva nted, Intramuscular 05/17/2018 Influenza, Unspecified 06/23/2019,05/24/2018 Meningococcal Polysaccharide (Menomune) 10/30/19 15 Pfizer SARS-CoV-2 Monovalent Vaccination (12+ Yrs) PURPLE 07/01/2021,11/15/2020,10/25/2020 Pneumococcal Polysaccharide PPV23 10/29/2014 ZOSTER LIVE 10/23/2016 ZOSTER Recombinant 09/12/2019,06/23/2019 Surgical History Surgery Date Site/Laterality Comments OTHER SURGICAL HISTORY 08/16/2007 - 08/15/2008 L. 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[facility]) ([facility]) Family History Medical History Relation Name Comments Lung cancer Brother 3 Cancer, lung; C ause of : Cancer, lung Other Brother 4 CO2 poisoning; Cause of : CO2 poisoning Lung cancer Father Cancer, lung; C ause of : Cancer, lung Heart failure Maternal Grandmother Conges tive Heart Failure; Lung cancer Mother Cancer, lung; Other Sister 2 Valve Replaceme nt; Relation Name Status Comments Brother 1 (Age 55) Brother 2 (Age 41) Brother 3 Brother 4 Father (Age 57) Maternal Grandmother Alive Mother Alive Sister 1 Alive Sister 2 Social History Tobacco Use Types Packs/Day Years Used Date Smoking Tobacco: Never Smokeless Tobacco: Never Tobacco Cessation:Counseling Given: Not Answered Alcohol Use Standard Drinks/Week Comments Not Currently 0 (1 standard drink = 0.6 oz pur e alcohol) rare AUDIT-C Answer Date Recorded Q1: How often do you have a drink containing alc ohol? Monthly or less 07/28/2024 Q2: How many drinks containi ng alcohol do you have on a typical day when you are drinking? 1 or 2 07/28/2024 Q3: How often do you have si x or more drinks on one occasion? Less than monthly 07/28/2024 Sex and Gender Information Value Date Recorded Sex Assigned at Not on file Legal Sex Male 8:29 PM ASBESTOS TEXTILE SUPERVISOR Gender Identity Male 06/29/2021 12:16 PM ASBESTOS TEXTILE SUPERVISOR Sexual Orientation Straight 06/29/2021 12 :16 PM ASBESTOS TEXTILE SUPERVISOR Obstetrics History Last Filed Vital Signs Vital Sign Reading Time Taken Comments Blood Pressure 166/84 07/28/2024 1:12 PM ASBESTOS TEXTILE SUPERVISOR Pulse 67 07/28/2024 1:12 PM ASBESTOS TEXTILE SUPERVISOR Temperature 36.4 C (97.6 F) 07/28/2024 1:12 PM ASBESTOS TEXTILE SUPERVISOR Respiratory Rate 18 07/28/2024 1:12 PM ASBESTOS TEXTILE SUPERVISOR Oxygen Saturation 95% 07/28/2024 1:1 2 PM ASBESTOS TEXTILE SUPERVISOR Inhaled Oxygen Concentration - - Weight 94.1 kg (207 lb 7.3 oz) 07/28/20 24 1:12 PM ASBESTOS TEXTILE SUPERVISOR with shoes Height 175.3 cm (5' 9 ) 04/21/2024 2:22 PM CDT Body Mass Index 30.64 04/21/2024 2:22 PM CDT Plan of Treatment Health Maintenance Due Date Last Done Comments Depression Screening 1940 Fall Risk Assessment 1940 Hepatitis B Screening 12/27/1958 Well Visit 65+ 2006 Pneumococcal vaccine 65+ (2 of 2 - PCV) 10/30/2015 10/29/2014 Covid-19 Vaccine (2023-2 5 season) 2024 07/01/2021, 11/15/2020, 10/25/2020 Influenza Vaccine (#1) 2024 , 06/23/2019, 05/24/2018, Additional history exists DTaP/Tdap/Td Vaccine (2 - Td or Tdap) 03/04/2034 03/04/2024 Zoster Vaccine Completed 09/12/2019, 110 03/2019, 10/23/2016 Insurance MEDICARE [facility] MEDICARE [facility] MEDICARE [facility] Care Teams Booking Agent Relationship Specialty Start Date End Date Tee Padilla MD PCP - General 04/18/13 Chester Cerda DO [address] [place] [id number] Medical Oncologist/Manager Provider Relations Hematology and Oncology 07/22/22
--- OUTSIDE RECORDS SUMMARY | 2024-10-03 00:48 | XMS_ITS | Referral Summary ---
Author Organization [facility] Address [address] [place] [address] Care Team Providers Care Hog Confinement System Manager Name Role Phone Tee Padilla MD Primary Care Provider [phone] Chester Cerda DO Unavailable [phone] Encounters Date Type Department Care Team Description 07/28/2024 1:15 PM LEATHER PATCHER Office Visit [facility] Oncology [address] [place] [address] [address] [place] [address] Chester Cerda DO Cancer of appendix (CMS/HCC) (HCC) (Primary Dx) from Last 3 Months Allergies No known active allergies Medications ascorbic [...] Other chest pain 10/13/2018 Cancer of appendix (CMS/HCC) 06/09/2018 Immunizations Immunization Administration Dates Next Due Hib (PRP-T) 10/29/2014 Influenza, Trivalent, Adjuva nted, Intramuscular 05/17/2018 Influenza, Unspecified 06/23/2019,05/24/2018 Meningococcal Polysaccharide (Menomune) 10/30/19 15 Pfizer SARS-CoV-2 Monovalent Vaccination (12+ Yrs) PURPLE 07/01/2021,11/15/2020,10/25/2020 Pneumococcal Polysaccharide PPV23 10/29/2014 ZOSTER LIVE 10/23/2016 ZOSTER Recombinant 09/12/2019,06/23/2019 Social History Tobacco Use Types Packs/Day Years [...] on file Legal Sex Male 8:29 PM LEATHER PATCHER Gender Identity Male 06/29/2021 12:16 PM LEATHER PATCHER Sexual Orientation Straight 06/29/2021 12 :16 PM LEATHER PATCHER Last Filed Vital Signs Vital Sign Reading Time Taken Comments Blood Pressure 166/84 07/28/2024 1:12 PM LEATHER PATCHER Pulse 67 07/28/2024 1:12 PM LEATHER PATCHER Temperature 36.4 C (97.6 F) 07/28/2024 1:12 PM LEATHER PATCHER Respiratory Rate 18 07/28/2024 1:12 PM LEATHER PATCHER Oxygen Saturation 95% 07/28/2024 1:1 2 PM LEATHER PATCHER Inhaled Oxygen Concentration - - Weight 94.1 kg (207 lb 7.3 oz) 07/28/20 24 1:12 PM LEATHER PATCHER with shoes Height 175.3 cm (5' 9 ) 04/21/2024 2:22 PM CDT Body Mass Index 30.64 04/21/2024 2:22 PM CDT Plan of Treatment Not on file Insurance MEDICARE [facility] Member Subscriber Plan / Payer (Ef fective 2023-Present) Name:Matthias Chu Relation to Subscriber:Self Name:Matthias Chu Payer ID:[id number] (NAIC) Type:COMMERCIAL Address: [address] [place] [id number] MEDICARE [facility] MEDICARE [facility] Care Teams Hog Confinement System Manager Relationship Specialty Start Date End Date Tee Padilla MD PCP - General 04/18/13 Chester Cerda DO [address] [place] [id number] Medical Oncologist/Nuclear Equipment Sales Engineer Hematology and Oncology 07/22/22
--- OUTSIDE RECORDS SUMMARY | 2024-10-03 00:49 | XMS_ITS | Clinical Summary ---
Author Organization [facility] Address [address] [place] [address] Care Team Providers Care Rehabilitation Services Director Name Role Phone None, Provider MD Primary Care Provider Unavaila ble Allergies No known active allergies Medications amLODIPine (NORVASC) 10 MG tablet Take 1 tablet (10 mg total) by mouth daily. Active ELIQUIS 5 MG tablet Take 1 tablet (5 mg total) by mouth every 12 (twelve) hours. Active aspirin 81 MG chewable tablet Chew 1 tablet (81 mg total) by mouth daily. 4 Active benzonatate (TESSALON) 100 MG capsule Take 1 capsule (100 mg total) by mouth 3 (three) times daily as needed. FOR COUGH 4 Active isosorbide mononitrate ER (IMDUR) 30 MG 24 hr tablet Take 1 tablet (30 mg total) by mouth daily. 4 02/18/20 25 Active omeprazole (PRILOSEC) 20 MG capsule Take 1 capsule (20 mg total) by mouth daily. Active rosuvastatin (CRESTOR) 10 MG tablet Take 1 tablet (10 mg total) by mouth daily. Active Multiple Vitamins-Mineral s (MULTI ADULT GUMMIES OR) Take by mouth daily. Active predniSONE (DELTASONE) 20 MG tabletIndication s:Bronchitis,Non -recurrent acute serous otitis media of both ears,Wheezing Take 1 tablet (20 mg total) by mouth daily. 2 pills daily for 5 days then one pill daily for 2 days 12 tablet 4 Active Additional Information Patient not taking.Reported on 09/18/2024 azithromycin (ZITHROMAX) 250 MG tabletIndication s:Bronchitis Take 2 tablets by mouth on day one then 1 daily for four days. 6 tablet 02/03/202 5 Active Hospital, Clinic, or Other Facility Administered Medication Ordered Dose Route Frequency Start Date End Date Status methylPREDNISolone acetate (DEPO-Medrol) injection 60 mgIndications:Bronchitis 60 mg IM Once 09/18/2024 09/18/2024 Ended Active Problems Problem Noted Date Diagnosed Date Cough in adult 07/10/2024 COVID-19 virus infection 07/10/2024 Carotid atherosclerosis 05/05/2019 History of TIA (transient ischemic attack) 05/05 Abnormality of aortic valve ([facility]) 10/13/2018 Other chest pain 10/13/2018 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[facility]) Acute respiratory failure with hypoxia ([facility]) 12/07/2016 Bacteremia 12/07/2016 Encephalopathy 12/07/2016 Hyperlipidemia 12/07/2016 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 Primary hypertension 12/07/2016 Other complications of proce dures, not elsewhere classified, initial encounter 11/17/2014 Intestinal obstruction ([facility]) 015 Primary malignant neoplasm ([facility]) 01/2015 Neoplasm of uncertain behavior of appendix 10/15 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 Encounters Date Type Department Care Team Description 09/18/2024 1:15 PM VP OF TECHNOLOGY Office Visit [facility] Family & Internal Medicine [address] [address] Anjali Valentine, PA Cough (Runny nose, fatigue, watery eyes, runny nose, poor appetite-x 5 days) 09/18/2024 Travel 07/10/2024 10:00 AM VP OF TECHNOLOGY Office Visit [facility] Family [facility] Internal Medicine [address] [address] None, Provider, Anjali Chan, PA Cough (Cough x 2 weeks) 07/10/2024 Travel from Last 3 Months Immunizations Name Administration Dates Next Due FLUAD (IIV, Trivalent, 0.5 M L Pre-filled Syringe) 06/23/2019,05/18/2018,05/17/2018 Fluzone High Dose (IIV, trivalent, 0.5mL) 2016,05/25/2016,05/16/2015 Fluzone High Dose - >Age 65 (Prefilled Syringe) 05/27/2023,05/20/2021,04/17/2020 Hib (Omni-Hib) 10/29/2014 Influenza (Generic) 06/23/2019,05/24/2018,2013 Influenza Adult (Generic) 05/21/2022 Meningococcal (Menomune) 10/29/2014 Pneumococcal (Pneumovax 23) 06/03/2017, 5 Pneumococcal (Prevnar 13) 05/25/2016 Shingrix 09/12/2019,06/23/2019,10/23/2016 Tdap (Generic) 03/04/2024,11/11/2012 Zoster (Zostavax) [address] Unt/0.65Ml 10/23/2016, Social History Tobacco Use Types Packs/Day Years Used Date Smoking Tobacco: Never Smokeless Tobacco: Never Tobacco Cessation:Counseling Given: No PHQ-2 Answer Date Recorded Patient Health Questionnaire-2 Score 0 09/18/2024 Sex and Gender Information Value Date Recorded Sex Assigned at Not on file Legal Sex Male 9:34 AM VP OF TECHNOLOGY Gender Identity Not on file Sexual Orientation Not on file Last Filed Vital Signs Vital Sign Reading Time Taken Comments Blood Pressure 124/76 09/18/2024 11:26 AM VP OF TECHNOLOGY Pulse 83 09/18/2024 11:26 AM VP OF TECHNOLOGY Temperature 36.8 C (98.2 F) 09/18/2024 11:26 AM VP OF TECHNOLOGY Respiratory Rate 20 09/18/2024 11:26 AM VP OF TECHNOLOGY Oxygen Saturation 96% 09/18/2024 11:26 AM VP OF TECHNOLOGY Inhaled Oxygen Concentration - - Weight 91.6 kg (202 lb) 09/18/2024 11:26 AM VP OF TECHNOLOGY Height 175.3 cm (5' 9 ) 09/18/2024 11:26 AM VP OF TECHNOLOGY Body Mass Index 29.83 09/18/2024 11:26 AM VP OF TECHNOLOGY Plan of Treatment Health Maintenance Due Date Last Done Comments ASCVD LDL 1940 Annual Medicare Wellness Visit 2006 RSV Immunization or 60+ Years (1 - 1-dose 75+ series) 2016 COVID-19 Vaccine ( season) 2024 05/27/2023, 05/21/2022, 07/01/2021, Additional history exists Influenza Adult (#1) 2024 05/27/2023, 05/21/2022, 05/20/2021, Additional history exists DTaP, Tdap and Td Vaccines (3 - Td or Tdap) 03/04/2034 03/04/2024, 11/11/2012 Meningococcal Vaccine Aged Out 10/29/2014 No nallely aman eligible based on patient's age to complete this topic Pneumococcal Vaccine: 65+ Years Completed 06/03/2017, 05/25/2016, 10/29/2014 Zoster Vaccines Completed 09/12/2019, 03/2019, 10/23/2016, Additional history exists PHQ-2 (Physician [place]) Completed 09/18/2024 Meningococcal B Vaccine Aged Out No l onger eligible based on patient's age to complete this topic RSV Immunizations Under 20 Months Aged Out No longer eligible based on patient's age to complete this topic Procedures Procedure Name Priority Date/Time Associated Diagnosis Comments CORONAVIRUS (COVID-19) INFLUENZA A & B ANTIGEN IA PANEL Routine 09/18/2024 Suspected COVID-19 virus infection from Last 3 Months Results * (ABNORMAL) CORONAVIRUS (COVID-19) INFLUENZA A & B ANTIGEN IA PANEL (09/18/2024) CORONAVIRUS ANTIGEN IA NEGATIVE NEGATIVE MG-[id number], [place] INFLUENZA A POSITIVE(A) NEGATIVE MG-[address], [place] INFLUENZA B NEGATIVE NEGATIVE MG-[address], [place] Internal Control: [facility]ID [facility]ID -[id number], [place] NASAL STRUCTURE / Unknown 09/18/2024 us Anjali HERNANDEZ MICROBIOLOGY - GENERAL ORDER SHAI Final Result -[id number], [place] [phone] [place] [address], from Last 3 Months Insurance [facility] MEDICARE Care Teams Rehabilitation Services Director Relationship Specialty Start Date End Date None, Provider, PCP - General UNKNOWN PHYSICIAN SPECIALTY 07/10/24
--- OUTSIDE RECORDS SUMMARY | 2024-10-03 00:49 | XMS_ITS | Patient Health Summary ---
Author Organization [facility] Address [address] [place] [address] Care Team Providers Care Custom Bike Builder Name Role Phone Tee Padilla MD Primary Care Provider [phone] Note from Formerly named [facility],non-owned Affiliates and Associated Physician Practices is amultiple site organization consisting of ambulatory clinics and hospital sitesin [place], [place], [place] and [place]. This disclosure is being madepursuant to the Care Everywhere program and may not contain all information available regarding this patient. Last updated 18.[facility] Medications * Be aware that medications may not be up to date on this document. Alwaysverify current medications with the patient. * fentaNYL (DURAGESIC) 25 MCG/HR patch(Started 12/10/2016) Apply 1 patch to skin q72h. * lidocaine (LIDODERM) 5 % patch(Started 12/10/2016) Apply 1 patch to skin QDAY PRN (Pain). * HYDROcodone-acetaminophen (NORCO) 5-325 MG tablet(Started 12/01/2016) Take 1 tablet by mouth q6h PRN (Pain). 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 Immunizations * HIB-PRP-T 4 DOSE(Given 10/29/2014) * MENINGOCOCAL MENINGITIS(Given 10/29/2014) * PNEUMOCOCCAL PPSV23(Given 10/29/2014) Social History Tobacco Use Types Packs/Day Years Used Date Smoking Tobacco: Never Smokeless Tobacco: Former Quit: 08/16/2014 Alcohol Use Standard Drinks/Week Comments Yes 0 (1 standard drink = 0.6 oz pur e alcohol) Sex and Gender Information Value Date Recorded Sex Assigned at Not on file Gender Identity Not on file Sexual Orientation Not on file Last Filed Vital Signs Vital Sign Reading Time Taken Comments Blood Pressure 144/71 12/10/2016 11:26 AM CDT Pulse 85 12/10/2016 11:26 AM CDT Temperature 36.3 C (97.4 F) 12/10/2016 11:26 AM CDT Respiratory Rate 18 12/10/2016 11:2 6 AM CDT Oxygen Saturation 100% 12/10/2016 11: 26 AM CDT Inhaled Oxygen Concentration - - Weight 91.5 kg (201 lb 11.2 oz) 12/06/2016 4:56 AM CDT Height 180.3 cm (5' 11 ) 12/02/2016 12: 00 AM CDT Body Mass Index 28.13 12/02/2016 12:00 AM CDT Procedures * CT ABDOMEN PELVIS W CONTRAST(Performed 04/16/2017) * CREATININE BLOOD - POCT (IP) SL(Performed 04/16/2017) * DIFFERENTIAL MANUAL(Performed 12/10/2016) * BASIC METABOLIC PANEL (CALCIUM TOTAL)(Performed 12/10/2016) * CBC W AUTO DIFFERENTIAL(Performed 12/10/2016) * CBC W AUTO DIFFERENTIAL(Performed 12/10/2016) * XR CHEST 1VW PORTABLE(Performed 12/09/2016) * CREATININE URINE RANDOM(Performed 12/09/2016) * OSMOLALITY URINE(Performed 12/09/2016) * SODIUM URINE RANDOM(Performed 12/09/2016) * BASIC METABOLIC PANEL (CALCIUM TOTAL)(Performed 12/09/2016) * CBC W AUTO DIFFERENTIAL(Performed 12/09/2016) * CBC W AUTO DIFFERENTIAL(Performed 12/09/2016) * CBC W AUTO DIFFERENTIAL(Performed 12/08/2016) * BASIC METABOLIC PANEL (CALCIUM TOTAL)(Performed 12/08/2016) * CBC W AUTO DIFFERENTIAL(Performed 12/08/2016) * GLUCOSE ACCUCHECK(Performed 12/07/2016) * BASIC METABOLIC PANEL (CALCIUM TOTAL)(Performed 12/07/2016) * DIFFERENTIAL MANUAL(Performed 12/07/2016) * CBC W AUTO DIFFERENTIAL(Performed 12/07/2016) * CBC W AUTO DIFFERENTIAL(Performed 12/07/2016) * CBC W AUTO DIFFERENTIAL(Performed 12/06/2016) * BASIC METABOLIC PANEL (CALCIUM TOTAL)(Performed 12/06/2016) * CBC W AUTO DIFFERENTIAL(Performed 12/06/2016) * BASIC METABOLIC PANEL (CALCIUM TOTAL)(Performed 12/05/2016) * DIFFERENTIAL MANUAL(Performed 12/05/2016) * CBC W AUTO DIFFERENTIAL(Performed 12/05/2016) * CBC W AUTO DIFFERENTIAL(Performed 12/05/2016) * MAGNESIUM BLOOD(Performed 12/04/2016) * TROPONIN I(Performed 12/04/2016) * CBC W AUTO DIFFERENTIAL(Performed 12/04/2016) * BASIC METABOLIC PANEL (CALCIUM TOTAL)(Performed 12/04/2016) * CBC W AUTO DIFFERENTIAL(Performed 12/04/2016) * EKG 12-LEAD(Performed 12/04/2016) * DIFFERENTIAL MANUAL(Performed 12/03/2016) * CBC W AUTO DIFFERENTIAL(Performed 12/03/2016) * BLOOD GASES ARTERIAL(Performed 12/03/2016) * BASIC METABOLIC PANEL (CALCIUM TOTAL)(Performed 12/03/2016) * CBC W AUTO DIFFERENTIAL(Performed 12/03/2016) * VANCOMYCIN LEVEL RANDOM(Performed 12/02/2016) * CULTURE AEROBIC(Performed 12/02/2016) * LEGIONELLA ANTIGEN URINE(Performed 12/02/2016) * STREP PNEUMONIAE ANTIGEN URINE/CSF(Performed 12/02/2016) * CREATININE URINE RANDOM(Performed 12/02/2016) * POTASSIUM URINE RANDOM(Performed 12/02/2016) * SODIUM URINE RANDOM(Performed 12/02/2016) * BLOOD GASES ARTERIAL(Performed 12/02/2016) * VANCOMYCIN LEVEL RANDOM(Performed 12/02/2016) * CULTURE URINE(Performed 12/02/2016) * URINALYSIS W/MICROSCOPIC NO CULTURE(Performed 12/02/2016) * COMPREHENSIVE METABOLIC PANEL(Performed 12/02/2016) * CULTURE BLOOD(Performed 12/02/2016) * CULTURE BLOOD(Performed 12/02/2016) * DIFFERENTIAL MANUAL(Performed 12/02/2016) * CBC W AUTO DIFFERENTIAL(Performed 12/02/2016) * PT-INR SLH(Performed 12/02/2016) * CBC W AUTO DIFFERENTIAL(Performed 12/02/2016) * XR ABDOMEN KUB PORTABLE(Performed 12/01/2016) * XR CHEST 1VW PORTABLE(Performed 12/01/2016) * CT ABDOMEN PELVIS W CONTRAST(Performed 10/09/2016) * CREATININE BLOOD - POCT (IP) SLH(Performed 10/09/2016) * CT ABDOMEN PELVIS W CONTRAST(Performed 07/20/2016) * CREATININE BLOOD - POCT (IP) SL[facility](Performed 07/20/2016) * CT ABDOMEN PELVIS W CONTRAST(Performed 04/28/2016) * CREATININE BLOOD - POCT (IP) SLH(Performed 04/28/2016) * CT ABDOMEN W CONTRAST(Performed 12/30/2015) * CREATININE BLOOD - POCT (IP) SLH(Performed 12/30/2015) * CT ABDOMEN PELVIS W CONTRAST(Performed 09/16/2015) * CREATININE BLOOD - POCT (IP) [facility](Performed 09/16/2015) * CT ABDOMEN PELVIS W CONTRAST(Performed 06/24/2015) * CREATININE BLOOD - POCT (IP) SL[facility](Performed 06/24/2015) * CT ABDOMEN PELVIS W CONTRAST(Performed 04/04/2015) * CREATININE BLOOD - POCT (IP) [facility](Performed 04/04/2015) * CREATININE BLOOD - POCT (IP) [facility](Performed 04/04/2015) * CT ABDOMEN PELVIS W CONTRAST(Performed 01/23/2015) * CREATININE BLOOD - POCT (IP) [facility](Performed 01/23/2015) * EKG 12-LEAD(Performed 11/28/2014) * CBC W AUTO DIFFERENTIAL(Performed 11/22/2014) * DIFFERENTIAL MANUAL(Performed 11/22/2014) * CBC W AUTO DIFFERENTIAL(Performed 11/22/2014) * COMPREHENSIVE METABOLIC PANEL(Performed 11/22/2014) * POTASSIUM URINE RANDOM(Performed 11/22/2014) * UREA NITROGEN URINE RANDOM(Performed 11/22/2014) * SODIUM URINE RANDOM(Performed 11/22/2014) * CREATININE URINE RANDOM(Performed 11/22/2014) * URINALYSIS W/MICROSCOPIC NO CULTURE(Performed 11/22/2014) * CBC W AUTO DIFFERENTIAL(Performed 11/21/2014) * DIFFERENTIAL MANUAL(Performed 11/21/2014) * COMPREHENSIVE METABOLIC PANEL(Performed 11/21/2014) * CBC W AUTO DIFFERENTIAL(Performed 11/21/2014) * PT-INR [facility](Performed 11/21/2014) * BASIC METABOLIC PANEL (CALCIUM TOTAL)(Performed 11/20/2014) * CBC W AUTO DIFFERENTIAL(Performed 11/20/2014) * DIFFERENTIAL MANUAL(Performed 11/20/2014) * COMPREHENSIVE METABOLIC PANEL(Performed 11/20/2014) * CBC W AUTO DIFFERENTIAL(Performed 11/20/2014) * PT-INR [facility](Performed 11/20/2014) * VAS BILATERAL VENOUS DUPLEX LE(Performed 11/19/2014) * CELL COUNT W DIFFERENTIAL FLUID(Performed 11/19/2014) * MANUAL DIFFERENTIAL REVIEWED(Performed 11/19/2014) * DIFFERENTIAL MANUAL FLUID(Performed 11/19/2014) * CELL COUNT FLUID(Performed 11/19/2014) * GLUCOSE BODY FLUID(Performed 11/19/2014) * PROTEIN FLUID(Performed 11/19/2014) * LIPASE BODY FLUID STL(Performed 11/19/2014) * AMYLASE BODY FLUID(Performed 11/19/2014) * CULTURE AFB+SMEAR(Performed 11/19/2014) * CULTURE FUNGUS OTHER+FUNGUS SMEAR(Performed 11/19/2014) * CULTURE ANAEROBE(Performed 11/19/2014) * CULTURE AEROBIC(Performed 11/19/2014) * CT DRAIN W CATH PLACEMENT(Performed 11/19/2014) * AMYLASE BODY FLUID(Performed 11/19/2014) * LDH BLOOD(Performed 11/19/2014) * CBC W AUTO DIFFERENTIAL(Performed 11/19/2014) * DIFFERENTIAL MANUAL(Performed 11/19/2014) * COMPREHENSIVE METABOLIC PANEL(Performed 11/19/2014) * VANCOMYCIN LEVEL TROUGH(Performed 11/19/2014) * PT-INR SL[facility](Performed 11/19/2014) * TRANSFERRIN(Performed 11/19/2014) * C-REACTIVE PROTEIN(Performed 11/19/2014) * PREALBUMIN(Performed 11/19/2014) * CBC W AUTO DIFFERENTIAL(Performed 11/19/2014) * CBC W AUTO DIFFERENTIAL(Performed 11/18/2014) * DIFFERENTIAL MANUAL(Performed 11/18/2014) * PT-INR [facility]H(Performed 11/18/2014) * COMPREHENSIVE METABOLIC PANEL(Performed 11/18/2014) * CBC W AUTO DIFFERENTIAL(Performed 11/18/2014) * CULTURE BLOOD(Performed 11/17/2014) * URINALYSIS REFLEX TO MICROSCOPIC NO CULTURE(Performed 11/17/2014) * CULTURE BLOOD(Performed 11/17/2014) * CT ABDOMEN PELVIS W CONTRAST(Performed 11/17/2014) * CULTURE WOUND+GRAM STAIN(Performed 11/17/2014) * CULTURE ANAEROBE(Performed 11/17/2014) * DIFFERENTIAL MANUAL(Performed 11/17/2014) * CBC W AUTO DIFFERENTIAL(Performed 11/17/2014) * PT-INR SLH(Performed 11/17/2014) * COMPREHENSIVE METABOLIC PANEL(Performed 11/17/2014) * CBC W AUTO DIFFERENTIAL(Performed 11/17/2014) * CBC W AUTO DIFFERENTIAL(Performed 11/15/2014) * DIFFERENTIAL MANUAL(Performed 11/15/2014) * CBC W AUTO DIFFERENTIAL(Performed 11/15/2014) * COMPREHENSIVE METABOLIC PANEL(Performed 11/15/2014) * PHOSPHORUS BLOOD(Performed 11/15/2014) * MAGNESIUM BLOOD(Performed 11/15/2014) * VANCOMYCIN LEVEL TROUGH(Performed 11/14/2014) * DIFFERENTIAL MANUAL(Performed 11/14/2014) * CBC W AUTO DIFFERENTIAL(Performed 11/14/2014) * CBC W AUTO DIFFERENTIAL(Performed 11/14/2014) * COMPREHENSIVE METABOLIC PANEL(Performed 11/14/2014) * PHOSPHORUS BLOOD(Performed 11/14/2014) * MAGNESIUM BLOOD(Performed 11/14/2014) * CULTURE STOOL+ E COLI SHIGA-LIKE TOXIN(Performed 11/13/2014) * CRYPTOSPORIDIUM ANTIGEN(Performed 11/13/2014) * GIARDIA SCREEN DFA(Performed 11/13/2014) * C DIFFICILE GDH AG + TOXIN A+B(Performed 11/13/2014) * CBC W AUTO DIFFERENTIAL(Performed 11/13/2014) * DIFFERENTIAL MANUAL(Performed 11/13/2014) * COMPREHENSIVE METABOLIC PANEL(Performed 11/13/2014) * PHOSPHORUS BLOOD(Performed 11/13/2014) * MAGNESIUM BLOOD(Performed 11/13/2014) * CBC W AUTO DIFFERENTIAL(Performed 11/13/2014) * VANCOMYCIN LEVEL TROUGH(Performed 11/12/2014) * TRANSFERRIN(Performed 11/12/2014) * PREALBUMIN(Performed 11/12/2014) * C-REACTIVE PROTEIN(Performed 11/12/2014) * CBC W AUTO DIFFERENTIAL(Performed 11/12/2014) * DIFFERENTIAL MANUAL(Performed 11/12/2014) * PHOSPHORUS BLOOD(Performed 11/12/2014) * COMPREHENSIVE METABOLIC PANEL(Performed 11/12/2014) * MAGNESIUM BLOOD(Performed 11/12/2014) * CBC W AUTO DIFFERENTIAL(Performed 11/12/2014) * CBC W AUTO DIFFERENTIAL(Performed 11/11/2014) * DIFFERENTIAL MANUAL(Performed 11/11/2014) * CBC W AUTO DIFFERENTIAL(Performed 11/11/2014) * XR ABDOMEN KUB PORTABLE(Performed 11/11/2014) * CBC W AUTO DIFFERENTIAL(Performed 11/11/2014) * DIFFERENTIAL MANUAL(Performed 11/11/2014) * MAGNESIUM BLOOD(Performed 11/11/2014) * COMPREHENSIVE METABOLIC PANEL(Performed 11/11/2014) * PHOSPHORUS BLOOD(Performed 11/11/2014) * CBC W AUTO DIFFERENTIAL(Performed 11/11/2014) * DIFFERENTIAL MANUAL(Performed 11/10/2014) * CBC W AUTO DIFFERENTIAL(Performed 11/10/2014) * CBC W AUTO DIFFERENTIAL(Performed 11/10/2014) * VANCOMYCIN LEVEL TROUGH(Performed 11/10/2014) * BASIC METABOLIC PANEL (CALCIUM TOTAL)(Performed 11/10/2014) * DIFFERENTIAL MANUAL(Performed 11/10/2014) * CBC W AUTO DIFFERENTIAL(Performed 11/10/2014) * CBC W AUTO DIFFERENTIAL(Performed 11/10/2014) * COMPREHENSIVE METABOLIC PANEL(Performed 11/10/2014) * PHOSPHORUS BLOOD(Performed 11/10/2014) * MAGNESIUM BLOOD(Performed 11/10/2014) * CROSSMATCH RBC LEUKOREDUCED(Performed 11/09/2014) * TYPE + SCREEN PANEL(Performed 11/09/2014) * CBC W AUTO DIFFERENTIAL(Performed 11/09/2014) * DIFFERENTIAL MANUAL(Performed 11/09/2014) * OCCULT BLOOD FECES(Performed 11/09/2014) * CBC W AUTO DIFFERENTIAL(Performed 11/09/2014) * BASIC METABOLIC PANEL (CALCIUM TOTAL)(Performed 11/09/2014) * LACTIC ACID BLOOD(Performed 11/09/2014) * PREALBUMIN(Performed 11/09/2014) * C-REACTIVE PROTEIN(Performed 11/09/2014) * TRANSFERRIN(Performed 11/09/2014) * URINALYSIS REFLEX TO MICROSCOPIC NO CULTURE(Performed 11/09/2014) * CULTURE URINE(Performed 11/09/2014) * CBC W AUTO DIFFERENTIAL(Performed 11/09/2014) * DIFFERENTIAL MANUAL(Performed 11/09/2014) * CBC W AUTO DIFFERENTIAL(Performed 11/09/2014) * XR ABDOMEN 2VW(Performed 11/09/2014) * XR CHEST 1VW PORTABLE(Performed 11/09/2014) * COMPREHENSIVE METABOLIC PANEL(Performed 11/09/2014) * PHOSPHORUS BLOOD(Performed 11/09/2014) * MAGNESIUM BLOOD(Performed 11/09/2014) * PT-INR SLH(Performed 11/09/2014) * TRANSFERRIN(Performed 10/29/2014) * C-REACTIVE PROTEIN(Performed 10/29/2014) * PREALBUMIN(Performed 10/29/2014) * PT-INR [facility](Performed 10/29/2014) * BASIC METABOLIC PANEL (CALCIUM TOTAL)(Performed 10/29/2014) * PHOSPHORUS BLOOD(Performed 10/29/2014) * MAGNESIUM BLOOD(Performed 10/29/2014) * CBC W/O DIFFERENTIAL(Performed 10/29/2014) * BASIC METABOLIC PANEL (CALCIUM TOTAL)(Performed 10/28/2014) * PHOSPHORUS BLOOD(Performed 10/28/2014) * MAGNESIUM BLOOD(Performed 10/28/2014) * CBC W/O DIFFERENTIAL(Performed 10/28/2014) * PT-INR [facility](Performed 10/28/2014) * GLUCOSE ACCUCHECK(Performed 10/27/2014) * GLUCOSE ACCUCHECK(Performed 10/27/2014) * C DIFFICILE GDH AG + TOXIN A+B(Performed 10/27/2014) * GLUCOSE ACCUCHECK(Performed 10/27/2014) * CBC W/O DIFFERENTIAL(Performed 10/27/2014) * BASIC METABOLIC PANEL (CALCIUM TOTAL)(Performed 10/27/2014) * PHOSPHORUS BLOOD(Performed 10/27/2014) * MAGNESIUM BLOOD(Performed 10/27/2014) * PT-INR SL[facility](Performed 10/27/2014) * GLUCOSE ACCUCHECK(Performed 10/26/2014) * GLUCOSE ACCUCHECK(Performed 10/26/2014) * GLUCOSE ACCUCHECK(Performed 10/26/2014) * GLUCOSE ACCUCHECK(Performed 10/26/2014) * PHOSPHORUS BLOOD(Performed 10/26/2014) * BASIC METABOLIC PANEL (CALCIUM TOTAL)(Performed 10/26/2014) * MAGNESIUM BLOOD(Performed 10/26/2014) * CBC W/O DIFFERENTIAL(Performed 10/26/2014) * PT-INR SLH(Performed 10/26/2014) * GLUCOSE ACCUCHECK(Performed 10/25/2014) * LIPASE BLOOD(Performed 10/25/2014) * AMYLASE BLOOD(Performed 10/25/2014) * GLUCOSE ACCUCHECK(Performed 10/25/2014) * LIPASE BODY FLUID STL(Performed 10/25/2014) * AMYLASE BODY FLUID(Performed 10/25/2014) * GLUCOSE ACCUCHECK(Performed 10/25/2014) * GLUCOSE ACCUCHECK(Performed 10/25/2014) * BASIC METABOLIC PANEL (CALCIUM TOTAL)(Performed 10/25/2014) * PHOSPHORUS BLOOD(Performed 10/25/2014) * MAGNESIUM BLOOD(Performed 10/25/2014) * PT-INR [facility](Performed 10/25/2014) * CBC W/O DIFFERENTIAL(Performed 10/25/2014) * ECHO COMPLETE(Performed 10/25/2014) * GLUCOSE ACCUCHECK(Performed 10/24/2014) * GLUCOSE ACCUCHECK(Performed 10/24/2014) * GLUCOSE ACCUCHECK(Performed 10/24/2014) * GLUCOSE ACCUCHECK(Performed 10/24/2014) * BASIC METABOLIC PANEL (CALCIUM TOTAL)(Performed 10/24/2014) * PHOSPHORUS BLOOD(Performed 10/24/2014) * MAGNESIUM BLOOD(Performed 10/24/2014) * PT-INR [facility]H(Performed 10/24/2014) * CBC W/O DIFFERENTIAL(Performed 10/24/2014) * GLUCOSE ACCUCHECK(Performed 10/23/2014) * GLUCOSE ACCUCHECK(Performed 10/23/2014) * GLUCOSE ACCUCHECK(Performed 10/23/2014) * VAS BILATERAL VENOUS DUPLEX LE(Performed 10/23/2014) * GLUCOSE ACCUCHECK(Performed 10/23/2014) * BASIC METABOLIC PANEL (CALCIUM TOTAL)(Performed 10/23/2014) * PT-INR [facility](Performed 10/23/2014) * PHOSPHORUS BLOOD(Performed 10/23/2014) * MAGNESIUM BLOOD(Performed 10/23/2014) * CBC W/O DIFFERENTIAL(Performed 10/23/2014) * EKG 12-LEAD(Performed 10/23/2014) * EKG 12-LEAD(Performed 10/23/2014) * GLUCOSE ACCUCHECK(Performed 10/22/2014) * GLUCOSE ACCUCHECK(Performed 10/22/2014) * GLUCOSE ACCUCHECK(Performed 10/22/2014) * GLUCOSE ACCUCHECK(Performed 10/22/2014) * GLUCOSE ACCUCHECK(Performed 10/22/2014) * PHOSPHORUS BLOOD(Performed 10/21/2014) * MAGNESIUM BLOOD(Performed 10/21/2014) * BASIC METABOLIC PANEL (CALCIUM TOTAL)(Performed 10/21/2014) * PREALBUMIN(Performed 10/21/2014) * PT-INR [facility](Performed 10/21/2014) * CALCIUM IONIZED WHOLE BLOOD(Performed 10/21/2014) * CBC W/O DIFFERENTIAL(Performed 10/21/2014) * PHOSPHORUS BLOOD(Performed 10/21/2014) * MAGNESIUM BLOOD(Performed 10/21/2014) * BASIC METABOLIC PANEL (CALCIUM TOTAL)(Performed 10/21/2014) * GLUCOSE ACCUCHECK(Performed 10/21/2014) * GLUCOSE ACCUCHECK(Performed 10/21/2014) * BASIC METABOLIC PANEL (CALCIUM TOTAL)(Performed 10/21/2014) * PHOSPHORUS BLOOD(Performed 10/21/2014) * MAGNESIUM BLOOD(Performed 10/21/2014) * PT-INR [facility](Performed 10/21/2014) * CBC W/O DIFFERENTIAL(Performed 10/21/2014) * CALCIUM IONIZED WHOLE BLOOD(Performed 10/21/2014) * EKG 12-LEAD(Performed 10/21/2014) * GLUCOSE ACCUCHECK(Performed 10/20/2014) * GLUCOSE ACCUCHECK(Performed 10/20/2014) * GLUCOSE ACCUCHECK(Performed 10/20/2014) * BLOOD GASES ARTERIAL(Performed 10/20/2014) * GLUCOSE ACCUCHECK(Performed 10/20/2014) * LACTIC ACID BLOOD(Performed 10/20/2014) * BLOOD GASES ARTERIAL(Performed 10/20/2014) * PT-INR [facility](Performed 10/20/2014) * BASIC METABOLIC PANEL (CALCIUM TOTAL)(Performed 10/20/2014) * PHOSPHORUS BLOOD(Performed 10/20/2014) * MAGNESIUM BLOOD(Performed 10/20/2014) * CALCIUM IONIZED WHOLE BLOOD(Performed 10/20/2014) * BLOOD GASES ARTERIAL(Performed 10/20/2014) * CBC W/O DIFFERENTIAL(Performed 10/20/2014) * GLUCOSE ACCUCHECK(Performed 10/20/2014) * URINALYSIS REFLEX TO MICROSCOPIC NO CULTURE(Performed 10/20/2014) * LACTIC ACID BLOOD(Performed 10/20/2014) * BLOOD GASES ARTERIAL(Performed 10/20/2014) * LACTIC ACID BLOOD(Performed 10/19/2014) * PHOSPHORUS BLOOD(Performed 10/19/2014) * MAGNESIUM BLOOD(Performed 10/19/2014) * COMPREHENSIVE METABOLIC PANEL(Performed 10/19/2014) * CALCIUM IONIZED WHOLE BLOOD(Performed 10/19/2014) * BLOOD GASES ARTERIAL(Performed 10/19/2014) * PT-INR [facility](Performed 10/19/2014) * CBC W AUTO DIFFERENTIAL(Performed 10/19/2014) * XR CHEST 1VW PORTABLE(Performed 10/19/2014) * FIBRINOGEN ACTIVITY(Performed 10/19/2014) * PTT [facility](Performed 10/19/2014) * PT-INR [facility](Performed 10/19/2014) * CBC W/O DIFFERENTIAL(Performed 10/19/2014) * PATHOLOGY TISSUE(Performed 10/19/2014) * FIBRINOGEN ACTIVITY(Performed 10/19/2014) * PT-INR [facility](Performed 10/19/2014) * PTT [facility](Performed 10/19/2014) * CBC W/O DIFFERENTIAL(Performed 10/19/2014) * BLOOD GASES ART COMPLETE [facility] OR(Performed 10/19/2014) * BLOOD GASES ART COMPLETE [facility] OR(Performed 10/19/2014) * BLOOD GASES ART COMPLETE [facility] OR(Performed 10/19/2014) * BLOOD GASES ART COMPLETE [facility] OR(Performed 10/19/2014) * BLOOD GASES ART COMPLETE [facility] OR(Performed 10/19/2014) * BLOOD GASES ART COMPLETE [facility] OR(Performed 10/19/2014) * BLOOD GASES ART COMPLETE [facility] OR(Performed 10/19/2014) * BLOOD GASES ART COMPLETE [facility] OR(Performed 10/19/2014) * TYPE + SCREEN PANEL(Performed 10/17/2014) * PREPARE CRYOPRECIPITATE UNIT(S)(Performed 10/17/2014) * CROSSMATCH RBC LEUKOREDUCED(Performed 10/17/2014) * EKG 12-LEAD(Performed 10/17/2014) * PATHOLOGY TISSUE(Performed 10/15/2014) * XR CHEST 2VW(Performed 10/03/2014) * CANCER ANTIGEN (CA)125 BLOOD(Performed 10/03/2014) * CANCER ANTIGEN (CA) 19-9(Performed 10/03/2014) * CEA BLOOD(Performed 10/03/2014) * COMPREHENSIVE METABOLIC PANEL(Performed 10/03/2014) * TRANSFERRIN(Performed 10/03/2014) * PREALBUMIN(Performed 10/03/2014) * PT-INR [facility](Performed 10/03/2014) * CBC W AUTO DIFFERENTIAL(Performed 10/03/2014) * URINALYSIS W/MICROSCOPIC NO CULTURE(Performed 10/03/2014) * CBC W AUTO DIFFERENTIAL(Performed 10/03/2014) * PET CT SKULL TO MID THIGH(Performed 10/01/2014) * GLUCOSE - POINT OF CARE (AMB) [facility](Performed 10/01/2014) * GLUCOSE - POINT OF CARE (AMB) [facility](Performed 10/01/2014) Results * CT ABDOMEN PELVIS W CONTRAST (04/16/2017 12:39 PM CDT) Only the most recent of9 resultswithin the time period is included. Anatomical Region Laterality Modality Abdomen, Pelvis Other Impressions 04/16/2017 2:52 PM CDT IMPRESSION: 1. No evidence of recurrent disease. Dictated by Loy Toth MD (vice president underwriting). I, Dr. YASSINE ATKINS M.D. have personally reviewed and interpreted this examination/study. This report was electronically signed by YASSINE ATKINS M.D. on 04/16/2017 2:52 PM . 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 FINDINGS: Comparison is made with a study from 10/09/2016. The aorta is atherosclerotic but normal in caliber. The visible lung bases are clear. The heart size is normal without pericardial effusion. A subcentimeter low attenuating hepatic segment 2 lesion is too small to characterize but likely represents a cyst. This is unchanged over multiple examinations. A 1.1 cm hepatic segment 6 cyst is also unchanged. Otherwise the liver enhances homogenously. The gallbladder is absent. The intrahepatic and extrahepatic bile ducts are nondilated. The spleen is absent. The pancreas and adrenal glands are normal. The kidneys enhance symmetrically. There is no evidence of renal calculus or hydronephrosis. The distal esophagus and stomach appear normal. Postsurgical changes of cytoreductive surgery are present with an enterocolic anastomosis present in the right hemiabdomen. No concerning lesion at the anastomotic site is identified to suggest recurrent disease. Otherwise the small bowel and large bowel are normal in caliber without evidence of wall thickening or obstruction. The appendix is absent. No free air or free fluid is identified within the abdomen. There is no abdominal lymphadenopathy. The urinary bladder is distended with fluid and appears normal. The prostate is surgically absent. No free fluid is seen within the pelvis. There is no pelvic lymphadenopathy. Bone windows demonstrate no suspicious lytic or blastic lesions. The visible osseous structures are intact. Degenerative changes are seen in the lower lumbar spine. 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 FINDINGS: Comparison is made with a study from 10/09/2016. The aorta is atherosclerotic but normal in caliber. The visible lung bases are clear. The heart size is normal withoutpericardial effusion. A subcentimeter low attenuating hepatic segment 2 lesion is too small tocharacterize but likely represents a cyst. This is unchanged over multipleexaminations. A 1.1 cm hepatic segment 6 cyst is also unchanged. Otherwisethe liver enhances homogenously. The gallbladder is absent. The intrahepatic and extrahepaticbile ducts are nondilated. The spleen is absent. The pancreas and adrenalglands are normal. The kidneys enhance symmetrically. There is no evidenceof renal calculus or hydronephrosis. The distal esophagus and stomach appear normal. Postsurgical changes ofcytoreductive surgery are present with an enterocolic anastomosis presentin the right hemiabdomen. No concerning lesion at the anastomotic site isidentified to suggest recurrent disease. Otherwise the small bowel and large bowel are normal in caliberwithout evidence of wall thickening or obstruction. The appendix isabsent. No free air or free fluid is identified within the abdomen. Thereis no abdominal lymphadenopathy. The urinary bladder is distended with fluid and appears normal. Theprostate is surgically absent. No free fluid is seen within the pelvis.There is no pelvic lymphadenopathy. Bone windows demonstrate no suspicious lytic or blastic lesions. Thevisible osseous structures are intact. Degenerative changes are seen inthe lower lumbar spine. 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 IMPRESSION IMPRESSION: 1. No evidence of recurrent disease. Dictated by Loy Toth MD (vice president underwriting). I, Dr. YASSINE ATKINS M.D. have personally reviewed and interpreted thisexamination/study. This report was electronically signed by YASSINE ATKINS M.D. on 04/16/20172:52 PM . Chester Cerda DO CT ORDERABLES * CREATININE BLOOD - POCT (IP) [facility] (04/16/2017) Only the most recent of10 resultswithin the time period is included. Pathologist [facility] Creatinine POCT 1.22 0.3 - 1.3 mg/dL [facility] eGFR POCT 60 60 ml/min [facility] 04/16/2017 Historical Provider LAB - POINT OF CA RE ORDERABLES [facility] * (ABNORMAL) DIFFERENTIAL MANUAL (12/10/2016 5:44 AM CDT) Only the most recent of21 resultswithin the time period is included. WBC (corrected for NRBC) 10.9 10 3/uL [facility] Total Cell Count 100 [facility] Neutrophils Absolute Manual 8.61(H) 1.60 - 7.00 10 3/uL [facility] Comment:(BANDS+SEGS) x WBC = NEUT # (ANC) Lymphocyte Absolute Manual 0.76(L) 0.80 - 2.90 10 3/uL [facility] Monocytes Absolute Manual 1.42(H) 0.14 - 0.66 10 3/uL [facility] Eosinophils Absolute Manual 0.11 0.00 - 0.22 10 3/uL [facility] Band % Manual 1 0 - 10 % [facility] Neutrophil % Manual 78(H) 30 - 60 % [facility] Lymphocyte % Manual 7(L) 20 - 45 % [facility] Monocytes % Manual 13(H) 2 - 10 % [facility] Eosinophils % Manual 1 1 - 6 % [facility] Platelet Estimate Adequate Adequate [facility] RBC Morphology Normal [facility] Blood specimen (specimen) BLOOD SPECIMEN / Unknown 12/10/2016 5:44 AM CDT 12/10/2016 5:51 AM CDT Arlette Fabian MD LAB - HEMATOLOGY ORD ERABLES [facility] [address] [place] [address] * (ABNORMAL) CBC W AUTO DIFFERENTIAL (12/10/2016 5:44 AM CDT) Only the most recent of53 resultswithin the time period is included. WBC 10.9(H) 3.5 - 10.5 10 3/uL [facility] RBC 3.51(L) 4.30 - 5.70 10 6/uL [facility] Hemoglobin 10.7(L) 13.5 - 17.5 g/dL [facility] Hematocrit 31.3(L) 39.0 - 50.0 % [facility] MCV 89.2 81.0 - 97.0 fL [facility] MCH 30.5 28.0 - 34.0 pg [facility] MCHC 34.2 32.0 - 36.0 g/dL [facility] Platelet Count 326 150 - 400 10 3/uL [facility] RDW-SD 48.9 36.0 - 50.0 fL [facility] RDW-CV 15.0(H) 11.2 - 14.8 % [facility] MPV 11.6 9.3 - 12.8 fL [facility] nRBC Absolute 0.00 0 10 3/uL [facility] nRBC Auto 0.0 0 /100 WBC [facility] Comment:Confirmed by repeat analysis. Reflex Status Manual Differential to follow. [facility] Blood specimen (specimen) BLOOD SPECIMEN / Unknown 12/10/2016 5:44 AM CDT 12/10/2016 5:51 AM CDT Arlette Fabian MD LAB - HEMATOLOGY ORD ERABLES Performing Organization Address City/[facility]/ZIP Co de Phone Number [facility] [address] [place] [address] * (ABNORMAL) BASIC METABOLIC PANEL (CALCIUM TOTAL) (12/10/2016 5:44 AM CDT) Only the most recent of22 resultswithin the time period is included. BUN 30(H) 7 - 26 mg/dL [facility] Creatinine 1.7(H) 0.6 - 1.2 mg/dL [facility] Sodium 139 136 - 145 mmol/L [facility] Potassium 3.9 3.5 - 4.5 mmol/L [facility] Chloride 105 98 - 107 mmol/L [facility] CO2 24 22 - 29 mmol/L [facility] Glucose 91 70 - 115 mg/dL [facility] Calcium 8.5 8.4 - 10.2 mg/dL [facility] Anion Gap 14 8 - 18 [facility] BUN/Creatinine Ratio 18 7 - 23 [facility] Osmolality Calculated 294 270 - 300 mOsm/kg [facility] eGFR 40(L) >60 mL/min/1.7 3 m2 [facility] Blood specimen (specimen) BLOOD SPECIMEN / Unknown 12/10/2016 5:44 AM CDT 12/10/2016 5:51 AM CDT Arlette Fabian MD LAB - CHEMISTRY ORDDelano GLASS Performing Organization Address City/[facility]/ZIP Co de Phone Number [address] [phone] * XR CHEST 1VW PORTABLE (12/09/2016 3:49 PM CDT) Only the most recent of4 resultswithin the time period is included. Anatomical Region Laterality Modality Chest Other Impressions 12/09/2016 4:25 PM CDT Impression: The endotracheal and enteric tubes have been removed. The lungs are hypoinflated. There is worsened linear likely atelectasis at the left as well as the right lung bases. There is no definite pleural effusion. There is no pneumothorax. Heart size is stable. Follow-up to document resolution is recommended. Report dictated by Ethan Fabian M.D. (vice president underwriting). Dr. ALEJANDRO Lynn M.D. have personally reviewed and interpreted this examination/study. This report was electronically signed by ALEJANDRO MANCIA M.D. on 12/09/2016 4:25 PM . Narrative 12/09/2016 4:25 PM CDT Exam: PX CHEST 1 VW Date: 12/09/2016 3:49 PM History: for comparison to previous xray Comparison: Chest radiograph dated 12/01/2016. Procedure Note Alejandro Mancia MD - 11/12/2017 Exam: PX CHEST 1 VW Date: 12/09/2016 3:49 PM History: for comparison to previous xray Comparison: Chest radiograph dated 12/01/2016. IMPRESSION Impression: The endotracheal and enteric tubes have been removed. The lungs are hypoinflated. There is worsened linear likely atelectasis atthe left as well as the right lung bases. There is no definite pleuraleffusion. There is no pneumothorax. Heart size is stable. Follow-up todocument resolution is recommended. Report dictated by Ethan Fabian M.D. (vice president underwriting). Dr. ALEJANDRO Lynn M.D. have personally reviewed and interpreted thisexamination/study. This report was electronically signed by ALEJANDRO MANCIA M.D. on12/09/2016 4:25 PM . Paola Willingham REAL ESTATE ANALYST[employer] [employer] ATTENDANT DIAGNOSTIC IM AGING ORDERABLES * SODIUM URINE RANDOM (12/09/2016 10:22 AM CDT) Only the most recent of3 resultswithin the time period is included. Sodium Urine 38 Not Established mmol/L [facility] Urine specimen (specimen) URINE / Unknown 12/09/2016 10:22 AM CDT 12/09/2016 10:29 AM CDT Celine Ashraf MD LAB - URINE CHEMISTR Y ORDERABLES [address] [phone] * (ABNORMAL) OSMOLALITY URINE (12/09/2016 10:22 AM CDT) Osmolality Urine 346(L) 500 - 800 mOsm/kg [facility] Urine specimen (specimen) URINE / Unknown 12/09/2016 10:22 AM CDT 12/09/2016 10:29 AM CDT Celine Ashraf MD LAB - URINE CHEMISTR Y ORDERABLES Performing Organization Address [facility] Co de Phone Number [address] [phone] * CREATININE URINE RANDOM (12/09/2016 10:22 AM CDT) Only the most recent of3 resultswithin the time period is included. Creatinine Urine 62 Not Established mg/dL [facility] Comment:Result obtained by ana boswell. Urine specimen (specimen) URINE / Unknown 12/09/2016 10:22 AM CDT 12/09/2016 10:29 AM CDT Celine Ashraf MD LAB - URINE CHEMISTR Y ORDERABLES Performing Organization Address [facility] Co de Phone Number [address] [phone] * (ABNORMAL) GLUCOSE ACCUCHECK (12/07/2016 12:29 PM CDT) Only the most recent of32 resultswithin the time period is included. Glucose, Fingerstick 128(H) 70-115mg/d L mg/dL [facility] RALS (BEAKER) Comment:Analysis Internship: JOAQUIM VALE EW 12/07/2016 12:2 9 PM CDT Arlette Fabian MD LAB - CHEMISTRY [place] Performing Organization Address [facility]/ZIP Co de Phone Number [facility] RALS (BEAKER) * (ABNORMAL) TROPONIN I (12/04/2016 7:07 AM CDT) Troponin I 0.052(H) <0.032 ng/mL [facility] Blood specimen (specimen) BLOOD SPECIMEN / Unknown 12/04/2016 7:07 AM CDT 12/04/2016 7:12 AM CDT Arlette Fabian MD LAB - CHEMISTRY [place] Performing Organization Address City/[facility]/ZIP Co de Phone Number [address] [phone] * MAGNESIUM BLOOD (12/04/2016 7:07 AM CDT) Only the most recent of20 resultswithin the time period is included. Pathologist [facility] Magnesium 2.1 1.6 - 2.6 mg/dL [facility] Blood specimen (specimen) BLOOD SPECIMEN / Unknown 12/04/2016 7:07 AM CDT 12/04/2016 7:12 AM CDT Arlette Fabian MD LAB - CHEMISTRY [place] Performing Organization Address [facility] Co de Phone Number [address] [phone] * EKG 12-LEAD (12/04/2016 12:00 AM CDT) Only the most recent of6 resultswithin the time period is included. Pathologist [facility] EKG [facility] Comment: Exam Date/Time: Dec 04 2016 06:40:49 Test Reason : Qtc Blood Pressure : / mmHG Vent. Rate : 082 BPM Atrial Rate : 082 BPM P-R Int : 104 ms QRS Dur : 092 ms QT Int : 382 ms P-R-T Axes : 060 006 023 degrees QTc Int : 446 ms Atrial fibrillation with frequent Premature ventricular complexes Otherwise normal ECG When compared with ECG of 23-OCT-2014 19:26, Premature ventricular complexes are now Present Atrial fibrillation replaced Sinus rhythm Confirmed by Shavon SANZ, KEDAR ([id number]), editor city Nitin Kelly ([id number]) on 12/14/2016 2:30:26 PM Referred By: REFERRING NO Confirmed By:KEDAR SANZ M.D. 12/04/2016 Arlette Fabian MD ECG ORDERABLES [facility] * (ABNORMAL) BLOOD GASES ART (12/03/2016 5:23 AM CDT) Only the most recent of7 resultswithin the time period is included. pH Arterial 7.47(H) 7.35 - 7.45 [facility] pCO2 Arterial 27(L) 35 - 45 mmHg [facility] pO2 Arterial 136(H) 71 - 95 mmHg [facility] HCO3 Arterial 19.3(L) 22.0 - 26.0 mmol/L [facility] TCO2 Arterial 20.1(L) 25.0 - 29.0 mmol/L [facility] Base Excess Arterial -3.3(L) -2.0 - 2.0 mmol/L [facility] Hemoglobin Arterial 11.0(L) 13.5 - 17.5 g/dL [facility] Oxyhemoglobin Arterial 97.0 95.0 - 100.0 % [facility] Carboxyhemoglobin 0.3 0.0 - 3.0 % [facility] Methemoglobin 0.3 0.0 - 2.0 % [facility] FI O2 Arterial 44.0 % [facility] Blood specimen (specimen) BLOOD SPECIMEN / Unknown 12/03/2016 5:23 AM CDT 12/03/2016 5:29 AM CDT Arlette Fabian MD LAB - BLOOD GASES OR DERABLES [address] [phone] * VANCOMYCIN LEVEL RANDOM (12/02/2016 4:44 PM CDT) Only the most recent of2 resultswithin the time period is included. Vancomycin Random 11.6 Therapeutic Ranges not established for random specimens mcg/mL [facility] Blood specimen (specimen) BLOOD SPECIMEN / Unknown 12/02/2016 4:44 PM CDT 12/02/2016 4:58 PM CDT Arlette Fabian MD LAB - CHEMISTRY [place] Performing Organization Address [facility] Co de Phone Number [address] [phone] * CULTURE AEROBIC (12/02/2016 11:20 AM CDT) Only the most recent of2 resultswithin the time period is included. Culture Aerobic Growth of respiratory katerina. [facility] Gram Stain Few Epithelial Cells [facility] Gram Stain Rare Yeast [facility] Abscess (Tracheal Secretion) 12/02/2016 11:20 AM CDT 12/02/2016 11:59 AM CDT Narrative [facility] - 12/04/2016 9:42 AM CDT Bronchial aspirate Specimen Type->Aspirate Specimen Source->Tracheal Secretion Gram Stains are routinely screened for the presence of Polymorphonuclear Cells. Arlette Fabina MD LAB - MICROBIOLOGY O RDERABLES Performing Organization Address [facility] Co de Phone Number [address] [phone] * LEGIONELLA ANTIGEN URINE (12/02/2016 11:20 AM CDT) Legionella pneumophila Antigen Urine Negative Negative [facility] [employer] [facility] (BEAKER) Comment: Sample is negative for the presence of L. pneumophila serogroup 1 antigen in urine, suggesting no recent or current infection. Legionnaires' Disease cannot be ruled out since other serogroups and species may also cause disease. INTERPRETIVE INFORMATION: Legionella pneumophila Antigen, Urine This assay detects Legionella pneumophila serogroup one (1) antigen. Performed by [employer], [address] [place] [id number] [email or web address], Giovanny Shook MD, Lab. Director Urine specimen (specimen) 12/02/2016 11:20 AM CDT 12/02/2016 11:58 AM CDT Arlette Fabian MD LAB - MICROBIOLOGY O RDERABLES [facility] ([facility]) * (ABNORMAL) STREP PNEUMONIAE ANTIGEN URINE/CSF (12/02/2016 11:19 AM CDT) Specimen Source Urine [facility] ([facility]) Comment: NOTIFIED ACCOUNT (ANTONIO Hernandez) ON 12/04/16 AT 4:42PM. FAX REQUESTED TO [phone].BS Streptococcus pneumoniae Antigen Positive(A) Negative [facility] ([facility]) Body Fluid Culture Sterile Not Indicated [facility] ([facility]) Organism Not indicated. [facility]) Please Note Comment [facility] ([facility]) Comment: [employer] guidelines require a culture to be performed on CSF specimens negative by bacterial antigen testing (CAP [id number]). 12/02/2016 11:1 9 AM CDT 12/02/2016 11:[address] [facility] ([facility]) - 12/04/2016 5:06 PM CDT urine Performed at: - [address] [id number] Oncology Coordinator: Wyatt Antonio MD, Phone: [phone] Arlette Fabian MD LAB - MICROBIOLOGY O RDERABLES Performing Organization Address City/[facility]/ZIP Co de Phone Number [facility] ([facility]) * POTASSIUM URINE RANDOM (12/02/2016 6:48 AM CDT) Only the most recent of2 resultswithin the time period is included. Potassium Urine 87 Not Established mmol/L [facility] Urine specimen (specimen) URINE / Unknown 12/02/2016 6:48 AM CDT 12/02/2016 6:48 AM CDT Arlette Fabian MD LAB - URINE CHEMISTR Y ORDERABLES [address] [phone] * CULTURE URINE (12/02/2016 12:35 AM CDT) Only the most recent of2 resultswithin the time period is included. Culture Urine No Growth of >100 CFU/ml after 24 hours [facility] Urine specimen (specimen) (Urine, Marshall Cath) 12/02/2016 12:35 AM CDT 12/02/2016 12:56 AM CDT Narrative [facility] - 12/03/2016 11:56 AM CDT Specimen Type->Urine Arlette Fabian MD LAB - MICROBIOLOGY O RDERABLES [address] [phone] * (ABNORMAL) URINALYSIS W/MICROSCOPIC NO CULTURE (12/02/2016 12:32 AM CDT) Only the most recent of3 resultswithin the time period is included. Color UA Yellow Straw, Yellow, Colorless, Light Yellow [facility] Clarity UA Clear Clear [facility] Specific [place] UA 1.019 1.001 - 1.030 [facility] pH UA 6.0 5.0 - 8.0 [facility] Protein UA 200(A) <=20 mg/dL [facility] Glucose UA Negative Negative mg/dL [facility] Ketone UA Negative Negative mg/dL [facility] Bilirubin UA Negative Negative mg/dL [facility] Blood UA Large(A) Negative [facility] Nitrite UA Negative Negative [facility] Leukocyte Esterase Negative Negative [facility] Urobilinogen UA <2.0 <2.0 mg/dL [facility] RBC UA 14(H) 0 - 8 /HPF [facility] WBC UA 2 0 - 2 /HPF [facility] Squamous Epithelial Cells UA <1 0 - 1 /HPF [facility] Urine specimen (specimen) 12/02/2016 12:32 AM CDT 12/02/2016 12:56 AM CDT Arlette Fabian MD LAB - URINALYSIS ORD ERABLES [facility] [address] [phone] * (ABNORMAL) COMPREHENSIVE METABOLIC PANEL (12/02/2016 12:32 AM CDT) Only the most recent of16 resultswithin the time period is included. BUN 43(H) 7 - 26 mg/dL [facility] Creatinine 2.0(H) 0.6 - 1.2 mg/dL [facility] Sodium 136 136 - 145 mmol/L [facility] Potassium 3.2(L) 3.5 - 4.5 mmol/L [facility] Chloride 107 98 - 107 mmol/L [facility] CO2 17(L) 22 - 29 mmol/L [facility] Glucose 129(H) 70 - 115 mg/dL [facility] Calcium 7.2(L) 8.4 - 10.2 mg/dL [facility] Protein Total 5.9(L) 6.0 - 8.3 g/dL [facility] Albumin 2.5(L) 3.4 - 5.0 g/dL [facility] Bilirubin Total 0.7 0.2 - 1.2 mg/dL [facility] Alkaline Phosphatase 74 40 - 150 Units/L [facility] ALT 34 0 - 55 Units/L [facility] AST 45(H) 5 - 34 Units/L [facility] Anion Gap 15 8 - 18 [facility] BUN/Creatinine Ratio 22 7 - 23 [facility] Osmolality Calculated 295 270 - 300 mOsm/kg [facility] Albumin/Globulin Ratio 0.7(L) 1.1 - 2.3 [facility] eGFR 33(L) >60 mL/min/1.7 3 m2 [facility] Blood specimen (specimen) BLOOD SPECIMEN / Unknown 12/02/2016 12:32 AM CDT 12/02/2016 12:56 AM CDT Arlette Fabian MD LAB - CHEMISTRY ORDE MARIA LUISA [facility] Organization Address City/State/ZIP Co de Phone Number [facility] [address] [phone] * CULTURE BLOOD (12/02/2016 12:32 AM CDT) Only the most recent of4 resultswithin the time period is included. Culture Blood No Growth at 5 days [facility] Blood specimen (specimen) (Venous, Peripheral) 12/02/2016 12:32 AM CDT 12/02/2016 12:54 AM CDT Arlette Fabian MD LAB - MICROBIOLOGY O RDERABLES Performing Organization Address [facility] Co de Phone Number [address] [phone] * (ABNORMAL) PT-INR U (12/02/2016 12:31 AM CDT) Only the most recent of21 resultswithin the time period is included. PT 16.8(H) 12.1 - 14.8 Seconds [facility] INR 1.4 See Comment [facility] Comment: Suggested therapeutic range for low-intensity coumadin therapy for venous thromboembolism prophylaxis is an INR of 2.0-3.0. For high risk patients (Mitral Valve Prosthesis, Atrial Fibrillation, history of TIA/stroke), suggested prophylactic therapeutic range is an INR of 2.5-3.5. Blood specimen (specimen) BLOOD SPECIMEN / Unknown 12/02/2016 12:31 AM CDT 12/02/2016 12:56 AM CDT Narrative [facility] - 12/02/2016 1:16 AM CDT Is patient on Heparin, Argatroban or Dabigatran?->N Arlette Fabian MD LAB - COAGULATION OR DERABLES Performing Organization Address [facility] Co de Phone Number [address] [phone] * XR ABDOMEN KUB PORTABLE (12/01/2016 11:51 PM CDT) Only the most recent of2 resultswithin the time period is included. Anatomical Region Laterality Modality Other Impressions 12/02/2016 4:50 PM CDT Impression: An enteric tube terminates in the proximal stomach. Report dictated by Ethan Fabian M.D. (vice president underwriting). This report was approved by Ethan Fabian M.D. on 12/02/2016 2:[address] JUWAN Lynn MD have personally reviewed and interpreted this examination/study. This report was electronically signed by JUWAN ROSAS MD on 12/02/2016 4:50 PM . Narrative 12/02/2016 4:50 PM CDT Exam: PX ABDOMEN 1 VW Date: 12/01/2016 11:51 PM History: NG tube position Comparison: Abdominal radiograph dated 11/11/2014. Procedure Note Juwan Rosas MD - 11/12/2017 Exam: PX ABDOMEN 1 VW Date: 12/01/2016 11:51 PM History: NG tube position Comparison: Abdominal radiograph dated 11/11/2014. IMPRESSION Impression: An enteric tube terminates in the proximal stomach. Report dictated by Ethan Fabian M.D. (vice president underwriting). This report was approved by Ethan Fabian M.D. on 12/02/2016 2:[address] JUWAN Lynn MD have personally reviewed and interpreted thisexamination/study. This report was electronically signed by JUWAN ROSAS MD on 12/02/20164:50 PM . Arlette Fabian MD DIAGNOSTIC IMAGING O RDERABLES * CT ABDOMEN W CONTRAST (12/30/2015 12:12 PM CDT) Anatomical Region Laterality Modality Abdomen Other Impressions 01/02/2016 2:25 PM CDT IMPRESSION: Postsurgical changes of the right colon with no evidence of residual or recurrence. No evidence of abdominal metastasis. Report dictated by Fredy Arambula MD (resident). This report was approved by Fredy Arambula on 01/02/2016 2:[address] KAROLYN Lynn M.D. have personally reviewed and interpreted this examination/study. This report was electronically signed by KAROLYN CUI M.D. on 01/02/2016 2:25 PM . Narrative 01/02/2016 2:25 PM CDT EXAMINATION: Computed tomography of the abdomen with contrast DATE: 12/30/2015. 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 TECHNIQUE: Computed tomography of the abdomen and pelvis was performed following the uneventful administration of Omnipaque 350 100 ml intravenous contrast according to standard protocol. COMPARISON: 09/16/2015. FINDINGS: The visualized lung bases are clear. The heart size is normal without pericardial effusion. The liver enhances homogenously. 2 fluid attenuating hepatic lesions are seen measuring up to 1 cm (series 3 image 41), unchanged consistent with hepatic cysts. The gallbladder is surgically absent. There is no intrahepatic or extrahepatic biliary ductal dilatation. Spleen is absent The pancreas is normal. The adrenal glands are normal. The kidneys enhance symmetrically bilaterally. There is no hydronephrosis or hydroureter. The stomach is normal. Postsurgical changes at the right colon are redemonstrated without evidence of new enhancing lesion to suggest recurrence .The small bowel is normal in course and caliber. There is no evidence of bowel wall thickening or bowel obstruction. There is no evidence of retroperitoneal lymphadenopathy. The abdominal aorta is normal in course and caliber. The remaining enhanced abdominal vascular structures are normal. No free intraperitoneal air is seen. Bone windows demonstrate no suspicious lytic or blastic lesions. Multilevel degenerative changes are present. Procedure Note Larissa Cui MD - 11/13/2017 EXAMINATION: Computed tomography of the abdomen with contrast DATE: 12/30/2015. 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 TECHNIQUE: Computed tomography of the abdomen and pelvis was performedfollowing the uneventful administration of Omnipaque 350 100 mlintravenous contrast according to standard protocol. COMPARISON: 09/16/2015. FINDINGS: The visualized lung bases are clear. The heart size is normal withoutpericardial effusion. The liver enhances homogenously. 2 fluid attenuating hepatic lesions areseen measuring up to 1 cm (series 3 image 41), unchanged consistent withhepatic cysts. The gallbladder is surgically absent. There is nointrahepatic or extrahepatic biliary ductal dilatation. Spleen is absent The pancreas is normal. The adrenalglands are normal. The kidneys enhance symmetrically bilaterally. Thereis no hydronephrosis or hydroureter. The stomach is normal. Postsurgical changes at the right colon areredemonstrated without evidence of new enhancing lesion to suggestrecurrence .The small bowel is normal in course and caliber. There is noevidence of bowel wall thickening or bowel obstruction. There is no evidence of retroperitoneal lymphadenopathy.The abdominal aorta is normal in course and caliber. The remainingenhanced abdominal vascular structures are normal. No free intraperitonealair is seen. Bone windows demonstrate no suspicious lytic or blastic lesions.Multilevel degenerative changes are present. IMPRESSION IMPRESSION: Postsurgical changes of the right colon with no evidence of residual orrecurrence. No evidence of abdominal metastasis. Report dictated by Fredy Arambula MD (resident). This report was approved by Fredy Arambula on 01/02/2016 2:14 PM . I, Dr. KAROLYN CUI M.D. have personally reviewed and interpreted thisexamination/study. This report was electronically signed by KAROLYN CUI M.D. on01/02/2016 2:25 PM . Chester Cerda DO CT ORDERABLES * UREA NITROGEN URINE RANDOM (11/22/2014 12:52 AM CDT) Urea Nitrogen Random Urine 183 Not Established mg/dL [facility] Urine specimen (specimen) URINE SPECIMEN OBTAINED BY CLEAN CATCH PROCEDURE / Unknown 11/22/2014 12:52 AM CDT 11/22/2014 12:52 AM CDT Elissa Briggs MD LAB - URINE CHEMISTR Y ORDERABLES [address] [phone] * VAS BILATERAL VENOUS DUPLEX LE (11/19/2014 3:39 PM CDT) Only the most recent of2 resultswithin the time period is included. Anatomical Region Laterality Modality Other Chelita Veloz MD VASCULAR LAB ORDERAB LES * LIPASE BODY FLUID ([facility]) (11/19/2014 1:04 PM CDT) Only the most recent of2 resultswithin the time period is included. Lipase Fluid 69 Not Established For Fluids Units/L [facility] Fluid specimen (specimen) SPECIMEN FROM ABSCESS / Unknown 11/19/2014 1:04 PM CDT 11/19/2014 1:04 PM CDT Alex Keating MD LAB - BODY FLUID ORDERABLES Performing Organization Address [facility]/ZIP Co de Phone Number [address] [phone] * GLUCOSE BODY FLUID ([facility]) (11/19/2014 1:04 PM CDT) Glucose Fluid <5 Not Established For Fluids mg/dL [facility] Fluid specimen (specimen) SPECIMEN FROM ABSCESS / Unknown 11/19/2014 1:04 PM CDT 11/19/2014 1:04 PM CDT Alex Keating MD LAB - BODY FLUID ORDERABLES Performing Organization Address [facility] Co de Phone Number [address] [phone] * AMYLASE BODY FLUID ([facility]) (11/19/2014 1:04 PM CDT) Only the most recent of3 resultswithin the time period is included. Amylase Fluid 189 Not Established For Fluids Units/L [facility] Fluid specimen (specimen) SPECIMEN FROM ABSCESS / Unknown 11/19/2014 1:04 PM CDT 11/19/2014 1:04 PM CDT Alex Keating MD LAB - BODY FLUID ORDERABLES Performing Organization Address [facility] Co de Phone Number [address] [phone] * MANUAL DIFFERENTIAL REVIEWED (11/19/2014 1:04 PM CDT) Manual Differential Reviewed DIFFERENTIAL REVIEW - CONFIRMED DIFFERENTIAL REVIEW - CONFIRMED [facility] Fluid specimen (specimen) SPECIMEN FROM ABSCESS / Unknown 11/19/2014 1:04 PM CDT 11/19/2014 2:07 PM CDT Alex Keating MD LAB - HEMATOLOGY ORDERABLES Performing Organization Address [facility]/ZIP Co de Phone Number [address] [phone] * CELL COUNT W DIFFERENTIAL FLUID (11/19/2014 1:04 PM CDT) Fluid specimen (specimen) SPECIMEN FROM ABSCESS / Unknown 11/19/2014 1:04 PM CDT Narrative [facility] - 11/20/2014 6:08 PM CDT The following orders were created for panel order Body fluid cell count with diff. 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 Alex Keating MD LAB - BODY FLUID ORDERABLES Performing Organization Address [facility] Co de Phone Number [facility] [address] * DIFFERENTIAL MANUAL FLUID (11/19/2014 1:04 PM CDT) Band Relative % Fluid 3 % [facility] Segs % Fluid 94 % [facility] Lymphocytes % Fluid 1 % [facility] Monocytes % Fluid 2 % [facility] Fluid specimen (specimen) SPECIMEN FROM ABSCESS / Unknown 11/19/2014 1:04 PM CDT 11/19/2014 1:49 PM CDT Narrative [facility] - 11/19/2014 2:07 PM CDT No reference ranges established for body fluid differential. Alex Keating MD LAB - BODY FLUID ORDERABLES Performing Organization Address [facility] Co de Phone Number [address] [phone] * (ABNORMAL) CELL COUNT FLUID (11/19/2014 1:04 PM CDT) Color Fluid Colorless Colorles s, Straw [facility] Clarity Fluid Cloudy(A) Clear [facility] Volume Fluid 6.0 mL [facility] WBC Calculation Fluid 65,000 /uL [facility] RBC Calculation 622 /uL [facility] Differential Manual Differential to follow. [facility] Fluid specimen (specimen) SPECIMEN FROM ABSCESS / Unknown 11/19/2014 1:04 PM CDT 11/19/2014 1:04 PM CDT Narrative [facility] - 11/19/2014 1:49 PM CDT No established reference ranges for WBC and RBC body fluid count. Alex Keating MD LAB - BODY FLUID ORDERABLES Performing Organization Address City/[facility]/ZIP Co de Phone Number [address] [phone] * PROTEIN FLUID (11/19/2014 1:04 PM CDT) Protein Fluid 2.0 Not Established For Fluids g/dL [facility] Fluid specimen (specimen) SPECIMEN FROM ABSCESS / Unknown 11/19/2014 1:04 PM CDT 11/19/2014 1:04 PM CDT Alex Keating MD LAB - BODY FLUID ORDERABLES Performing Organization Address City/[facility]/ZIP Co de Phone Number [address] [phone] * CULTURE FUNGUS OTHER+FUNGUS SMEAR (11/19/2014 1:00 PM CDT) Culture Fungus-Other No Growth Fungi. [facility] Fungus Smear No Fungi seen. [facility] Abscess SPECIMEN FROM ABSCESS / Unknown 11/19/2014 1:00 PM CDT 11/19/2014 1:01 PM CDT Narrative [facility] - 12/18/2014 9:14 AM CDT Specimen Type->Abscess Alex Keating MD LAB - MICROBIOLOG Y ORDERABLES Performing Organization Address City/[facility]/ZIP Co de Phone Number [address] [phone] * CULTURE AFB+SMEAR (11/19/2014 1:00 PM CDT) Culture Acid Fast Bacilli No Growth of Acid Fast bacilli after 8 weeks. [facility] AFB Smear No Acid Fast bacilli seen on direct smear. [facility] Abscess SPECIMEN FROM ABSCESS / Unknown 11/19/2014 1:00 PM CDT 11/19/2014 1:01 PM CDT Narrative [facility] - 01/14/2015 1:59 PM CDT Specimen Type->Abscess Alex Keating MD LAB - MICROBIOLOG Y ORDERABLES Performing Organization Address [facility] Co de Phone Number [address] [phone] * (ABNORMAL) CULTURE ANAEROBE (11/19/2014 1:00 PM CDT) Only the most recent of2 resultswithin the time period is included. Culture Anaerobic No Growth at 48 hours [facility] Culture Anaerobic CLOSTRIDIUM SPECIES(A) [facility] Comment: Growth in Thioglycollate Broth Clostridium Species PROBABLE CLOSTRIDIUM SPECIES UNABLE TO IDENTIFY FURTHER Wound SPECIMEN FROM ABSCESS / Unknown 11/19/2014 1:00 PM CDT 11/19/2014 1:01 PM CDT Narrative [facility] - 11/27/2014 3:23 PM CDT Specimen Type->Wound Elissa Briggs MD LAB - MICROBIOLOGY O RDERABLES Performing Organization Address [facility]/ZIP Co de Phone Number [address] [phone] * CT DRAIN W CATH PLACEMENT (11/19/2014 12:28 PM CDT) Anatomical Region Laterality Modality Abdomen Other Impressions 11/19/2014 5:20 PM CDT Impression: Ultrasound-guided paracentesis, as described above. Dictated by Loy Toth MD (resident). IDr. Keating, performed/was present throughout the procedure. This report was approved by LOY TOTH on 11/19/2014 1:[address] ALEX Lynn M.D. have personally reviewed and interpreted this examination/study. This report was electronically signed by ALEX KEATING M.D. on 11/19/2014 5:20 PM . 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 Operators: 1. Dr. Keating, Attending Physician 2. Dr. Toth, Resident Physician Anesthesia: Local anesthesia - 10 ml of 1% Lidocaine. Procedure: 1. Limited ultrasound evaluation of the left upper abdominal quadrant. 2. Ultrasound-guided paracentesis. Duration of the procedure: Appx 20 minutes. Procedure in Detail: The procedure and possible complications were explained to the patient in detail, and informed consent was obtained. The patient was placed in a supine position on the ultrasound table and a limited ultrasound evaluation of the left upper quadrant demonstrated a small amount of free fluid. An appropriate percutaneous entry site was marked on the skin. The marked site and skin around the region were prepped and draped in a sterile fashion. Local anesthesia was provided by the injection of 1% Lidocaine. A co-axial needle system was advanced in stages under real time ultrasound guidance. Upon aspiration, the outer sheath was advanced within the fluid cavity. Approximately 400 mL of yellow, somewhat cloudy, non-viscous free fluid was drained. An appropriate amount of aspirate was sent for necessary laboratory work up. A final ultrasound image showed resolution of the free fluid. There were no immediate complications like hemorrhage noted. The patient tolerated the procedure well. The patient was transferred to the holding area in stable condition. Procedure Note Alex Keating MD - 11/13/2017 History: 73-year-old male with a history of appendiceal cancer andpseudomyxoma peritonei who presents for drainage of an intra-abdominalfluid collection. Operators: 1. Dr. Keating, Attending Physician 2. Dr. Toth, Resident Physician Anesthesia: Local anesthesia - 10 ml of 1% Lidocaine. Procedure: 1. Limited ultrasound evaluation of the left upper abdominal quadrant. 2. Ultrasound-guided paracentesis. Duration of the procedure: Appx 20 minutes. Procedure in Detail: The procedure and possible complications wereexplained to the patient in detail, and informed consent was obtained. The patient was placed in a supine position on the ultrasound table and alimited ultrasound evaluation of the left upper quadrant demonstrated asmall amount of free fluid. An appropriate percutaneous entry site wasmarked on the skin. The marked site and skin around the region were prepped and draped in asterile fashion. Local anesthesia was provided by the injection of 1%Lidocaine. A co- axial needle system was advanced in stages under realtime ultrasound guidance. Upon aspiration, the outer sheath was advanced within the fluid cavity.Approximately 400 mL of yellow, somewhat cloudy, non-viscous free fluidwas drained. An appropriate amount of aspirate was sent for necessarylaboratory work up. A final ultrasound image showed resolution of the free fluid. There were no immediate complicationslike hemorrhage noted. The patient tolerated the procedure well. [facility] IMPRESSION Impression: Ultrasound-guided paracentesis, as described above. Dictated by Loy Toth MD (resident). Dr. Zuri Lynn, performed/was present throughout the procedure. This report was approved by LOY TOTH on 11/19/2014 1:07 PM . IDr. ALEX M.D. have personally reviewed and interpretedthis examination/study. This report was electronically signed by ALEX KEATING M.D. on11/19/2014 5:20 PM . Elissa Briggs MD CT ORDERABLES * (ABNORMAL) C-REACTIVE PROTEIN (11/19/2014 4:35 AM CDT) Only the most recent of4 resultswithin the time period is included. C-Reactive Protein 4.0(H) <=0.5 mg/dL [facility] Blood specimen (specimen) BLOOD SPECIMEN / Unknown 11/19/2014 4:35 AM CDT 11/19/2014 4:43 AM CDT Elissa Briggs MD LAB - CHEMISTRY [place] Performing Organization Address City/[facility]/ZIP Co de Phone Number [address] [phone] * (ABNORMAL) TRANSFERRIN (11/19/2014 4:35 AM CDT) Only the most recent of5 resultswithin the time period is included. Transferrin 94(L) 174 - 382 mg/dL [facility] Transferrin Saturation % 12(L) 16 - 50 % [facility] Blood specimen (specimen) BLOOD SPECIMEN / Unknown 11/19/2014 4:35 AM CDT 11/19/2014 4:43 AM CDT Elissa Briggs MD LAB - CHEMISTRY [place] Performing Organization Address [facility] Co de Phone Number [address] [phone] * (ABNORMAL) PREALBUMIN (11/19/2014 4:35 AM CDT) Only the most recent of6 resultswithin the time period is included. Prealbumin 8(L) 16 - 45 mg/dL [facility] Blood specimen (specimen) BLOOD SPECIMEN / Unknown 11/19/2014 4:35 AM CDT 11/19/2014 4:43 AM CDT Elissa Briggs MD LAB - CHEMISTRY [place] Performing Organization Address [facility] [place] [address], [facility] [phone] * LDH BLOOD (11/19/2014 4:35 AM CDT) LDH Total 204 125 - 243 Units/L [facility] Blood specimen (specimen) BLOOD SPECIMEN / Unknown 11/19/2014 4:35 AM CDT 11/19/2014 2:37 PM CDT Alex Keating MD LAB - CHEMISTRY O RDSEPIDEH [address] [phone] * VANCOMYCIN LEVEL TROUGH (11/19/2014 4:35 AM CDT) Only the most recent of4 resultswithin the time period is included. Vancomycin Trough 15.5 10.0 - 20.0 mcg/mL [facility] Blood specimen (specimen) BLOOD SPECIMEN / Unknown 11/19/2014 4:35 AM CDT 11/19/2014 4:43 AM CDT Elissa Briggs MD LAB - CHEMISTRY [place] Performing Organization Address [facility]/ZIP Co de Phone Number [address] [phone] * (ABNORMAL) URINALYSIS REFLEX TO MICROSCOPIC NO CULTURE (11/17/2014 5:49 PM CDT) Only the most recent of3 resultswithin the time period is included. Color UA Yellow Straw, Yellow, Colorless, Light Yellow [facility] Clarity UA Clear Clear [facility] Specific [place] UA 1.019 1.001 - 1.030 [facility] pH UA 5.5 5.0 - 8.0 [facility] Protein UA 30(A) <=20 mg/dL [facility] Glucose UA Negative Negative mg/dL [facility] Ketone UA Negative Negative mg/dL [facility] Bilirubin UA Negative Negative mg/dL [facility] Blood UA Negative Negative [facility] Nitrite UA Negative Negative [facility] Leukocyte Esterase Negative Negative [facility] Urobilinogen UA <2.0 <2.0 mg/dL [facility] RBC UA 4 0 - 8 /HPF [facility] WBC UA 2 0 - 2 /HPF [facility] Bacteria UA Rare Rare, Occasional, None /HPF [facility] Mucus UA Moderate(A) None /LPF [facility] Urine specimen (specimen) URINE SPECIMEN OBTAINED BY CLEAN CATCH PROCEDURE / Unknown 11/17/2014 5:49 PM CDT 11/17/2014 11:50 PM CDT Chelita Veloz MD LAB - URINALYSIS ORD ERABLES Performing Organization Address [facility]/ZIP Co de Phone Number [address] [phone] * CULTURE WOUND+GRAM STAIN (11/17/2014 1:47 PM CDT) [facility] Culture Wound No Growth at 1 week [facility] Culture Wound See anaerobic culture. [facility] Gram Stain Many Red Blood Cells [facility] Gram Stain Few Polymorphonuclear Cells [facility] Gram Stain No Organism Seen [facility] Wound 11/17/2014 1:47 PM CDT 11/17/2014 1:50 PM CDT Narrative [facility] - 11/23/2014 11:59 AM CDT Specimen Type->Wound Abdominal wall abscess Gram Stains are routinely screened for the presence of Polymorphonuclear Cells. Jabari Farnsworth MD LAB - MICROBIOLOGY O RDERABLES Performing Organization Address [facility] Co de Phone Number [address] [phone] * PHOSPHORUS BLOOD (11/15/2014 3:00 AM CDT) Only the most recent of19 resultswithin the time period is included. [facility] Phosphorus 3.2 2.3 - 4.7 mg/dL [facility] Blood specimen (specimen) BLOOD SPECIMEN / Unknown 11/15/2014 3:00 AM CDT 11/15/2014 3:12 AM CDT Virgilio Fontaine MD LAB - CHEMISTRY [place] Performing Organization Address City/[facility]/ZIP Co de Phone Number [address] [phone] * GIARDIA SCREEN DFA (11/13/2014 11:23 AM CDT) Giardia Antigen Screen No Giardia Lamblia Cysts seen. Negative [facility] Stool specimen (specimen) STOOL SPECIMEN / Unknown 11/13/2014 11:23 AM CDT 11/13/2014 11:30 AM CDT [facility] - 11/15/2014 1:31 PM CDT Specimen Type->Stool Virgilio Fontaine MD LAB - MICROBIOLOGY O [place] Performing Organization Address [facility] Co de Phone Number [address] [phone] * CULTURE STOOL+ E COLI SHIGA-LIKE TOXIN (11/13/2014 11:23 AM CDT) Culture Feces No Salmonella, Shigella, Yersinia, Campylobacter or Escherichia Coli 0157:H7 isolated. Negative for Shiga Toxin by Immunoassay. [facility] Stool specimen (specimen) STOOL SPECIMEN / Unknown 11/13/2014 11:23 AM CDT 11/13/2014 11:30 AM CDT [facility] - 11/17/2014 8:58 AM CDT Specimen Type->Stool Virgilio Fontaine MD LAB - MICROBIOLOGY [place] Performing Organization Address [facility] de Phone Number [address] [phone] * CLOSTRIDIUM DIFFICILE [facility] + TOXIN A+B (11/13/2014 11:23 AM CDT) Only the most recent of2 resultswithin the time period is included. C difficile Antigen Negative Negative [facility] C difficile Toxin Negative Negative [facility] Stool specimen (specimen) STOOL SPECIMEN / Unknown 11/13/2014 11:23 AM CDT 11/13/2014 11:30 AM CDT [facility] - 11/13/2014 1:27 PM CDT Specimen Type->Stool Virgilio Fontaine MD LAB - MICROBIOLOGY O [place] Performing Organization Address [facility] Co de Phone Number [address] [address], [place] [phone] * CRYPTOSPORIDIUM ANTIGEN (11/13/2014 11:23 AM CDT) Cryptosporidium Antigen Screen No Cryptosporidium Oocysts seen. Negative [facility] Stool specimen (specimen) STOOL SPECIMEN / Unknown 11/13/2014 11:23 AM CDT 11/13/2014 11:30 AM CDT Narrative [facility] - 11/15/2014 1:31 PM CDT Specimen Type->Stool Virgilio Fontaine MD LAB - MICROBIOLOGY O RDERABLES [address] [phone] * CROSSMATCH RBC LEUKOREDUCED (11/09/2014 6:14 PM CDT) Only the most recent of2 resultswithin the time period is included. Unit RBC-WBCD [id number] transfused [facility] PRODU[facility] (BEAKER) Unit ABO A [facility] (BEAKER) Unit Rh POS [facility] (BEAKER) Unit Number [id number] [facility] (BEAKER) Unit Status Transfused [facility] BLO OD BANK PRODUCTS (BEAKER) Unit RBC-WBCD [id number] transfused [facility] (BEAKER) Unit ABO A [facility] (BEAKER) Unit Rh POS [facility] (BEAKER) Unit Number [id number] [facility]ODU[facility] (BEAKER) Unit Status Transfused [facility] BLO OD BANK PRODUCTS (BEAKER) 11/09/2014 6:14 PM CDT 11/09/2014 6:[address] [facility] PR[facility] (BEAKER) - 11/09/2014 6:14 PM CDT # of Units->2 Lonnie Braden DO LAB - BLOOD BAN K ORDERABLES [facility] (BEAKER) * TYPE + SCREEN PANEL (11/09/2014 6:07 PM CDT) Only the most recent of2 resultswithin the time period is included. Typem A POS [facility] Antibody Screen NEG [facility] Blood specimen (specimen) BLOOD SPECIMEN / Unknown 11/09/2014 6:07 PM CDT 11/09/2014 6:13 PM CDT Lonnie Braden DO LAB - BLOOD BAN K ORDERABLES [facility] [address] [place] [address] * (ABNORMAL) OCCULT BLOOD FECES (11/09/2014 5:08 PM CDT) Pathologist [facility] Occult Blood Positive(A ) Negative [facility] Stool specimen (specimen) 11/09/2014 5:08 PM CDT 11/09/2014 5:38 PM CDT Narrative [facility] - 11/09/2014 6:50 PM CDT Please obtain sample from G tube drainage, thank you Virgilio Fontaine MD LAB - BODY FLUID ORD ERABLES Performing Organization Address [facility]/ZIP Co de Phone Number [address] [phone] * LACTIC ACID BLOOD (11/09/2014 5:07 PM CDT) Only the most recent of4 resultswithin the time period is included. Pathologist [facility] Lactic Acid-Stat 2.0 0.5 - 2.2 mmol/L [facility] Blood specimen (specimen) BLOOD SPECIMEN / Unknown 11/09/2014 5:07 PM CDT 11/09/2014 5:27 PM CDT Lonnie Braden DO LAB - CHEMISTRY ORDERABLES Performing Organization Address City/[facility]/ZIP Co de Phone Number [address] [phone] * XR ABDOMEN 2VW (11/09/2014 10:59 AM CDT) Anatomical Region Laterality Modality Other Impressions 11/09/2014 5:23 PM CDT Findings/Impression: Please note, the pelvis is not included in the puqwq-[id number]. The enteric tube terminates in the gastric fundus. The visualized abdominal gas pattern is nonobstructive. A percutaneous gastrostomy tube is present. There is no free air under the hemidiaphragms. Dictated by Dianne Ward MD. I, Dr. JUWAN ROSAS MD have personally reviewed and interpreted this examination/study. This report was electronically signed by JUWAN ROSAS MD on 11/09/2014 5:23 PM . Narrative 11/09/2014 5:23 PM CDT Exam: Abdomen, upright and supine AP views. Comparison: None History: sbo, NG placement . Colon cancer. Procedure Note Juwan Rosas MD - 11/13/2017 Exam: Abdomen, upright and supine AP views. Comparison: None History: sbo, NG placement . Colon cancer. IMPRESSION Findings/Impression: Please note, the pelvis is not included in the [id number]-[id number]. The enterictube terminates in the gastric fundus. The visualized abdominal gaspattern is nonobstructive. A percutaneous gastrostomy tube is present.There is no free air under the hemidiaphragms. Dictated by Dianne Ward MD. I, Dr. JUWAN ROSAS MD have personally reviewed and interpreted thisexamination/study. This report was electronically signed by JUWAN ROSAS MD on 11/09/20145:23 PM . Virgilio Fontaine MD DIAGNOSTIC IMAGING O RDERABLES * (ABNORMAL) CBC W/O DIFFERENTIAL (10/29/2014 5:30 AM CDT) Only the most recent of12 resultswithin the time period is included. WBC 6.3 3.5 - 10.5 10 3/uL [facility] RBC 2.44(L) 4.30 - 5.70 10 6/uL [facility] Hemoglobin 7.7(L) 13.5 - 17.5 g/dL [facility] Hematocrit 22.4(L) 39.0 - 50.0 % [facility] MCV 91.8 81.0 - 97.0 fL [facility] MCH 31.6 28.0 - 34.0 pg [facility] MCHC 34.4 32.0 - 36.0 g/dL [facility] Platelet Count 655(H) 150 - 400 10 3/uL [facility] RDW-SD 46.9 36.0 - 50.0 fL [facility] RDW-CV 14.2 11.2 - 14.8 % [facility] MPV 9.7 9.3 - 12.8 fL [facility] Blood specimen (specimen) BLOOD SPECIMEN / Unknown 10/29/2014 5:30 AM CDT 10/29/2014 5:49 AM CDT Elissa Briggs MD LAB - HEMATOLOGY ORD SEPIDEH Performing Organization Address City/[facility]/ZIP Co de Phone Number [address] [phone] * LIPASE BLOOD (10/25/2014 5:40 PM CDT) Lipase 20 8 - 78 Units/L [facility] Blood specimen (specimen) BLOOD SPECIMEN / Unknown 10/25/2014 5:40 PM CDT 10/25/2014 6:08 PM CDT Elissa Briggs MD LAB - CHEMISTRY [place] [address] [phone] * AMYLASE BLOOD (10/25/2014 5:40 PM CDT) Amylase 39 25 - 125 Units/L [facility] Blood specimen (specimen) BLOOD SPECIMEN / Unknown 10/25/2014 5:40 PM CDT 10/25/2014 6:08 PM CDT Elissa Briggs MD LAB - CHEMISTRY [place] [facility] [address] [phone] * ECHO W DOPPLER AND COLOR FLOW (10/25/2014 12:00 AM CDT) Anatomical Region Laterality Modality Other 10/25/2014 Elissa Briggs MD ECHOCARDIOGRAPHY RAD IANT * (ABNORMAL) CALCIUM IONIZED WHOLE BLOOD (10/21/2014 11:25 PM CDT) Only the most recent of4 resultswithin the time period is included. Ionized Calcium Whole Blood 1.12 mmol/L [facility] Adjusted Ionized Calcium 1.15(L) 1.19 - 1.34 mmol/L [facility] pH Whole Blood 7.46(H) 7.35 - 7.45 [facility] Blood specimen (specimen) BLOOD SPECIMEN / Unknown 10/21/2014 11:25 PM CDT 10/21/2014 11:32 PM CDT Elissa Briggs MD LAB - CHEMISTRY [place] [address] [phone] * PTT [facility] (10/19/2014 4:09 PM OPERATIONS SYSTEMS SPECIALIST) Only the most recent of2 resultswithin the time period is included. APTT 35.1 23.0 - 38.4 Seconds [facility] Comment:Suggested therapeuti c range for full dose I.V. heparin therapy for venous thromboembolism is 66.0-91.0 seconds. Blood specimen (specimen) BLOOD SPECIMEN / Unknown 10/19/2014 4:09 PM OPERATIONS SYSTEMS SPECIALIST 10/19/2014 4:09 PM OPERATIONS SYSTEMS SPECIALIST Narrative [facility] - 10/19/2014 4:29 PM OPERATIONS SYSTEMS SPECIALIST Is patient on Heparin, Argatroban or Dabigatran?->Y in or Elissa Briggs MD LAB - COAGULATION OR DERABLES [address] [phone] * (ABNORMAL) FIBRINOGEN ACTIVITY (10/19/2014 4:09 PM OPERATIONS SYSTEMS SPECIALIST) Only the most recent of2 resultswithin the time period is included. Fibrinogen Clauss 153(L) 170 - 400 mg/dL [facility] Comment:checked Blood specimen (specimen) BLOOD SPECIMEN / Unknown 10/19/2014 4:09 PM OPERATIONS SYSTEMS SPECIALIST 10/19/2014 4:09 PM OPERATIONS SYSTEMS SPECIALIST Elissa Briggs MD LAB - COAGULATION OR DERABLES [facility] [address] [phone] * PATHOLOGY TISSUE (10/19/2014 12:56 PM OPERATIONS SYSTEMS SPECIALIST) Only the most recent of2 resultswithin the time period is included. 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 OPERATIVE PROCEDURE: Hyperthermic intraperitoneal chemotherapy, cytoreductive surgery, omentectomy, splenectomy, colectomy, cholecystectomy. FINAL DIAGNOSIS: LIGAMENT OF TERES, RESECTION (A): - FIBROADIPOSE TISSUE WITH LOW-GRADE MUCINOUS NEOPLASM AND ASSOCIATED PSEUDOMYXOMA PERITONEI XIPHOID, EXCISION (B): - NORMOCELLULAR BONE WITH ACTIVE TRILINEAGE HEMATOPEOSIS - UNREMARKABLE SKELTAL MUSCLE AND ADIPOSE TISSUE - NO MUCINOUS MATERIALS OR NEOPLASM IDENTIFIED OMENTUM, OMENTECTOMY (C): - LOBULATED ADIPOSE TISSUE WITH LOW-GRADE MUCINOUS NEOPLASM AND ASSOCIATED PSEUDOMYXOMA PERITONEI SPLEEN AND OMENTUM, SPLENECTOMY AND PARTIAL OMENTECTOMY (D): - SPLENIC CAPSULE INVOLVED BY LOW-GRADE MUCINOUS NEOPLASM AND ASSOCIATED PSEUDOMYXOMA PERITONEI - SPLENIC PARENCHYMA UNREMARKABLE LEFT DIAPHRAGM AND PERITONEUM EN BLOC WITH GEROTA'S FASCIA, EXCISION (E): - LOW-GRADE MUCINOUS NEOPLASM AND ASSOCIATED PSEUDOMYXOMA PERITONEI - LINING REACTIVE MESOTHELIAL CELLS PRESENT RIGHT DIAPHRAGMATIC PERITONECTOMY EN BLOC WITH MARC'S POUCH, EXCISION (F): - LOW-GRADE MUCINOUS NEOPLASM AND ASSOCIATED PSEUDOMYXOMA PERITONEI - LINING REACTIVE MESOTHELIAL CELLS PRESENT GALLBLADDER, CHOLECYSTECTOMY (G): - CHRONIC CHOLECYSTITIS WITH CHOLESTEROLOSIS - NO MUCINOUS MATERIALS OR NEOPLASM IDENTIFIED SUB-PYLORIC SPACE, EXCISION (H): - LOW-GRADE MUCINOUS NEOPLASM AND ASSOCIATED PSEUDOMYXOMA PERITONEI - LINING REACTIVE MESOTHELIAL CELLS PRESENT OMENTUM, LESSER, EXCISION (I): - LOW-GRADE MUCINOUS NEOPLASM AND ASSOCIATED PSEUDOMYXOMA PERITONEI - LINING REACTIVE MESOTHELIAL CELLS PRESENT - SEROSAL ADHESIONS AND SEROSITIS PRESENT IVC, ANTERIOR, EXCISION (J): - FIBROADIPOSE TISSUE WITH ACELLULAR MUCINOUS MATERIALS LIVER CAPSULE, EXCISION (K): - ACELLULAR MUCINOUS MATERIALS PRESENT - REACTIVE MESOTHELIAL CELLS PRESENT - SEROSAL ADHESIONS AND SEROSITIS PRESENT - NO HEPATIC PARENCHYMA IDENTIFIED COLON AND ILEUM, RIGHT COLECTOMY (L): - ACELLULAR MUCINOUS MATERIALS INVOLVING THE SEROSA - UNREMARKABLE COLONIC AND SMALL INTESTINAL MUCOSA - REACTIVE MESOTHELIAL CELLS PRESENT - SEROSAL ADHESIONS AND SEROSITIS PRESENT - FOUR SMALL LYMPH NODES NEGATIVE FOR TUMOR (0/4) PELVIC PERITONEUM, EXCISION (M): - FIBROADIPOSE TISSUE WITH LOW-GRADE MUCINOUS NEOPLASM AND ASSOCIATED PSEUDOMYXOMA PERITONEI COLON, NODULE, EXCISION (N): - LOW-GRADE MUCINOUS NEOPLASM AND ASSOCIATED PSEUDOMYXOMA PERITONEI - LINING REACTIVE MESOTHELIAL CELLS PRESENT SKIN, UMBILICUS, EXCISION (O): - DERMAL ACELLULAR MUCINOUS MATERIALS PRESENT - FOREIGN BODY GIANT CELL REACTION PRESENT SYNOPTIC REPORT: Applies To: A-O: ligament of teres, right colon, small bowel, omentum, peritoneum, spleen, diaphragm, lesser sac, liver capsule and umbilicus. 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 involving peritoneum and splenic capsule Tumor Size: Undetermined Microscopic Histologic Type: Low grade mucinous neoplasm Histologic Grade: Low grade mucinous neoplasm Microscopic Tumor Extension: Right colon, abdominal wall, diaphragm and splenic capsule Lymphovascular Invasion: Not identified Perineural invasion: Not identified Margins: Some margins involved Pathologic Staging (pTNM) (AJCC 7th Edition, 2010) Primary Tumor (pT): pTx: Primary tumor cannot be accessed Regional Lymph Nodes (pN): pN0: No regional lymph node metastasis Number of lymph nodes examined: 4 Number of lymph nodes involved: 0 Distant Metastasis (pM): pM1a: Intraperitoneal metastasis beyond the right lower quadrant, including pseudomyxoma peritonei (see Comment) Comments: The primary tumor of the appendix is not available for review. 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 However, there is no high grade cytology or invasive carcinoma identified in all the nodules and mucinous materials. 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 Correlation with clinical information is recommended. More pericolonic lymph nodes are pending and the result will be reported as an addendum. GROSS DESCRIPTION: The specimens are received in 15 containers, all fixed in formalin, each labeled with the patient's name Matthias Chu. Received fixed in formalin in a container correctly labeled with the patient's name, medical record number, date of and ligament of Teres , is an 11.6 x 7.8 x 1.6 cm portion of irregular, lobulated , yellow-quintero fibroadipose tissue. The peritoneal surface is remarkable for several multinodular, translucent white-quintero nodules measuring up to 1.1 cm in greatest dimension. On serial sectioning, the adipose tissue is yellow-orange and unremarkable. Benefits Representative sections, including the peritoneal implants, are submitted in cassette A1. Specimen B is additionally labeled xiphoid and consists of a triangular fragment of cartilage and bone with overall dimensions of 3.6 x 2.9 x 0.7 cm. After decalcification, exhibit display representative sections are submitted in cassette B1. Specimen C is additionally labeled omentum and consists of a 21.2 x 19.4 x 3.6 cm omentum with innumerable white-quintero translucent implants. Benefits Representative implants are submitted in cassette C1. Specimen D is additionally labeled spleen and omentum and consists of a 518.6 gram composite resection of spleen with peritoneum and omentum. The spleen is coated by a thick rind of fibrous and gelatinous, mucinous tissue and measures approximately 13.2 x 5.8 x 6.7 cm. The attached adipose tissue measures 13.6 x 10.8 x 2.4 cm. The spleen is serially sectioned, revealing unremarkable red and white pulp, with confirmation of capsular thickening and encasement by mucinous tumor. A exhibit display representative section is submitted in cassette D1. Specimen E is additionally labeled left diaphragm and peritoneum en bloc with Gerota's fascia , and consists of a portion of thin, purple-quintero membranous tissue with overall dimensions of 27.6 x 10.9 x up to 2.7 cm. One-half is remarkable for thick, irregular papillary and nodular white-quintero and mucinous tumor deposits. The other is relatively smooth and glistening. Benefits Representative sections of the irregular tumor deposits are submitted in cassette E1. Specimen F is additionally labeled right diaphragmatic peritonectomy en block with Marc's pouch , and consists of a 36.8 x 12.3 x up to 0.7 cm portion of purple-quintero membranous tissue with innumerable mucinous, multinodular tumor deposits measuring up to 3.4 cm. Benefits Representative tumor deposits are submitted in cassette f1. Specimen G is additionally labeled gallbladder and consists of a gallbladder with overall dimensions of 6.9 x 3.1 x 1.8 cm. The cystic duct is patent and exudes green, viscous bile. The serosal surface of the gallbladder is green, smooth and glistening. The gallbladder is opened to reveal velvety green mucosa with three polypoid lesions in the body and fundus, measuring up to 0.4 cm. A cross-section of the cystic duct and sections of the polypoid lesion are submitted in cassette G1. Specimen H is additionally labeled sub-pyloric space and consists of multiple fragments of mucinous, nodular, purple-quintero to clear tissue with aggregate dimensions of 5.1 x 4.8 x 1.8 cm. Benefits Representative portions of the specimen are submitted in cassette H1. Specimen I is additionally labeled lesser omentum and consists of three fragments of lobular yellow adipose tissue admixed with multinodular translucent, mucinous material with overall dimensions of 5.1 x 4.2 x 1.3 cm. Benefits Representative sections are submitted in cassette I1. Specimen J is additionally labeled anterior IVC and consists of a single portion of irregular, lobulated, yellow-quintero adipose tissue that is 3.1 x 2.0 x 1.3 cm. The specimen is bisected, and half is submitted in cassette J1. Specimen K is additionally labeled liver capsule and consists of several membranous and nodular portions of purple-quintero to translucent tissue with overall aggregate dimensions of 7.1 x 6.0 x 1.2 cm. Benefits Representative sections are submitted in cassette K1. Specimen L, right colon and ileum , consists of a right colectomy specimen with attached small bowel and mesentery. The large bowel measures 15.3 cm in length with a diameter ranging from 9.5 cm to 10.5 cm. The large bowel wall thickness ranges from 0.2 to 0.3 cm. There is a 15.0 cm in length mesentery present along the 15.3 cm in length colon. The colonic mucosa is brown-quintero to red-quintero in color and thrown into its normal folds. No polyps or gross lesions are appreciated grossly on the colonic mucosa The small bowel segment measures 29.6 cm in length with a diameter ranging from 5.1 to 3.5 cm. The small bowel wall thickness ranges from 0.2 to 0.4 cm throughout. There is a 29.6 cm portion of mesentery attached to the small bowel. The small bowel mucosa is brown-quintero to yellow-quintero uniformly with normal folds. No mucosal gross lesions are appreciated on the small bowel mucosa. The small bowel serosa is focally shaggy and red-quintero in appearance. There is no appendix found within the specimen. Multiple mucinous, gelatinous, clear nodules are noted near the ileocecal junction on the serosal surface, which range from 0.1 to 0.3 cm. L1 small bowel surgical resection margin L2 colonic surgical resection margin L3 exhibit display representative section of uninvolved small bowel, perpendicular section L4 exhibit display representative section of uninvolved large bowel, perpendicular section L5 exhibit display representative section of mucinous nodule L6-L7 exhibit display representative sections of the mucinous nodules Specimen M is additionally labeled pelvic peritoneum and consists of an irregular, partially-disrupted portion of purple-quintero membranous tissue with attached fibroadipose tissue with overall dimensions of 33.5 x 14.1 x up to 1.6 cm. Tumor deposits measuring up to 3.6 cm in greatest dimension are present. Benefits Representative sections are submitted in cassette M1. Specimen N is additionally labeled colonic nodule and consists of a multinodular portion of lobulated, rgxryr-dl-qtnedoftcud clear tissue measuring 3.0 x 1.6 x 0.7 cm. Benefits Representative sections are submitted in cassette N1. Specimen O is additionally labeled umbilicus and consists of a 4.7 x 2.6 cm ellipse of white-quintero skin containing an umbilicus, excised to a depth of 3.3 cm. A dermal tumor deposit measuring up to 0.5 cm is identified near the central portion of the specimen. A exhibit display representative cross-section to include the tumor deposit is submitted in cassette O1. LW/SG/edk MICROSCOPIC DESCRIPTION: Sections from the mucinous nodules or materials show low grade mucinous neoplasm and abundant mucinous materials. No high grade dysplasia or invasive carcinoma is identified. Appendix is not identified, compatible with history of prior surgery of the appendix. JL/AQ The performance characteristics of all immunohistochemical and indirect immunofluorescence stains (if any) cited in this report were determined by the [facility] of [facility]. Some of these tests were developed by our own laboratory and have not been cleared or approved by the US Food and Drug Administration. The FDA does not require this test to go through premarket FDA review. These tests are used for clinical purposes. They should not be regarded as investigational or for research. This laboratory is certified under the Clinical Laboratory Improvement Amendments (CLIA) as qualified to perform high complexity clinical laboratory testing. This case has been personally reviewed and interpreted by the attending (teaching) pathologist. Final Diagnosis performed by Aurora An MD. Electronically signed 10/29/2014 ADDENDUM 24 additional lymph nodes are identified. They are negative for carcinoma or mucinous neoplasm. Diagnosis of tumor stage (pTxN0) remains unchanged. FINAL DIAGNOSIS: COLON AND ILEUM, RIGHT COLECTOMY (L): - ACELLULAR MUCINOUS MATERIALS INVOLVING THE SEROSA - UNREMARKABLE COLONIC AND SMALL INTESTINAL MUCOSA - REACTIVE MESOTHELIAL CELLS PRESENT - SEROSAL ADHESIONS AND SEROSITIS PRESENT - Twenty eight LYMPH NODES NEGATIVE FOR TUMOR (0/28) GROSS DESCRIPTION: Additional tissue is submitted on specimen L, as follows: Following microscopic examination, the right colon and ileum was re-examined, and 25 potential lymph nodes were identified. The potential lymph nodes were submitted as follows: L8 three potential lymph nodes L9 five potential lymph nodes L10 two potential lymph nodes L11 four potential lymph nodes L12 three potential lymph nodes L13 four potential lymph nodes L14 four potential lymph nodes EEE/edk MICROSCOPIC DESCRIPTION: 24 additional regional lymph nodes are identified. They are negative for tumor or mucinous materials. ALEJANDRA/AQ Addendum #1 performed by Aurora An MD. Electronically signed 10/30/2014 [facility] ([employer]) Other (qualifier value) 10/19/2014 12:56 PM OPERATIONS SYSTEMS SPECIALIST 10/22/2014 7:40 AM CDT Narrative [facility] ([employer]) - 10/30/2014 11:32 AM CDT PRE-OP DIAGNOSIS: APPENDICEAL TUMOR OPERATIVE PROCEDURE / FINDINGS: Procedure(s) with comments: HYPERTHERMIC INTRAPERITONEAL CHEMOTHERAPY CYTOREDUCTIVE SURGERY, OMENTECTOMY, SPLENECTOMY, COLECTOMY, CHOLECYSTECTOMY - 43380, 25264, 79685, 03631, 20021, 38705/14080 POST-OP DIAGNOSIS: * No post-op diagnosis entered * Collection Date->10/19/14 Collection Time->12:56 PM Specimen A->Other 1.LIGAMENT OF TERES @ 0905 Specimen B->Other 2. XYPHOID @ 0914 Specimen C->Other 3.OMENTUM @ 0950 Specimen D->Other 4. SPLEEN & OMENTUM @ 1015 Specimen E->Other 5.LEFT DIAPHRAGMATIC PERITONECTOMY EN BLOC WITH GEROTA'S FASCIA @ 1050 Specimen F->Other 6. RIGHT DIAPHRAGMATIC PERITONECTOMY EN BLOC WITH MORISON' POUCH @ 17884 Specimen G->Other 7. GALLBLADDER @ 1150 Specimen H->Other 8. SUBPYLORIC SPACE @ 1155 Specimen I->Other 9. LESSER OMENTUM @ 1204 Specimen J->Other 10 ANTERIOR IVC @ 1233 Elissa Briggs MD LAB - PATHOLOGY/CYTO LOGY ORDERABLES [facility] ([facility]) * (ABNORMAL) BLOOD GASES ART COMPLETE [facility] OR (10/19/2014 10:43 AM OPERATIONS SYSTEMS SPECIALIST) Only the most recent of8 resultswithin the time period is included. pH Arterial 7.35 7.35 - 7.45 [facility] pCO2 Arterial 31(L) 35 - 45 mmHg [facility] pO2 Arterial 117(H) 71 - 95 mmHg [facility] HCO3 Arterial 16.9(L) 22.0 - 26.0 mmol/L [facility] TCO2 Arterial 17.8(L) 25.0 - 29.0 mmol/L [facility] Base Excess Arterial -7.9(L) -2.0 - 2.0 mmol/L [facility] Hemoglobin Arterial 8.2(L) 13.5 - 17.5 g/dL [facility] Oxyhemoglobin Arterial 95.6 95.0 - 100.0 % [facility] Carboxyhemoglobin 0.7 0.0 - 3.0 % [facility] Methemoglobin 1.0 0.0 - 2.0 % [facility] FI O2 Arterial 30.0 % [facility] Ionized Calcium Whole Blood 1.00 mmol/L [facility] Adjusted Ionized Calcium 0.97(L) 1.19 - 1.34 mmol/L [facility] Sodium Whole Blood 138 135 - 145 mmol/L [facility] Potassium Whole Blood 3.9 3.5 - 5.5 mmol/L [facility] Chloride Whole Blood 116(H) 101 - 111 mmol/L [facility] Glucose Whole Blood 150(H) 70 - 110 mg/dL [facility] Lactic Acid Whole Blood 2.1 0.5 - 3.4 mmol/L [facility] Blood specimen (specimen) 10/19/2014 10:43 AM OPERATIONS SYSTEMS SPECIALIST 10/19/2014 5:37 PM OPERATIONS SYSTEMS SPECIALIST Narrative [facility] - 10/19/2014 5:45 PM OPERATIONS SYSTEMS SPECIALIST FIO2->100 Elissa Briggs MD LAB - BLOOD GASES OR DERABLES [facility] * PREPARE CRYOPRECIPITATE UNIT (S) (10/17/2014 1:00 PM OPERATIONS SYSTEMS SPECIALIST) Unit Cryo [id number] returned [facility]CTS (BEAKER) 10/17/2014 1:00 PM OPERATIONS SYSTEMS SPECIALIST 10/17/2014 1:17 PM OPERATIONS SYSTEMS SPECIALIST Narrative [facility]LO[facility] PR[facility] (BEAKER) - 10/17/2014 1:00 PM OPERATIONS SYSTEMS SPECIALIST # of Units->1 Marcial Ricks MD LAB - BLOOD BANK ORD ERABLES Performing Organization Address [facility]/ZIP Co de Phone Number [facility] BLOOD BANK PRODUCTS (BEAKER) * XR CHEST 2VW (10/03/2014 1:05 PM OPERATIONS SYSTEMS SPECIALIST) Anatomical Region Laterality Modality Chest Other Impressions 10/03/2014 4:46 PM OPERATIONS SYSTEMS SPECIALIST IMPRESSION: No acute pulmonary process. Dictated by Loy Toth MD (vice president underwriting). Dr. YASSINE Lynn M.D. have personally reviewed and interpreted this examination/study. This report was electronically signed by YASSINE ATKINS M.D. on 10/03/2014 4:46 PM . Narrative 10/03/2014 4:46 PM OPERATIONS SYSTEMS SPECIALIST EXAMINATION: XR CHEST PA AND LATERAL DATE: 10/03/2014 1:14 PM HISTORY: Colon cancer, surgical preoperative workup COMPARISON: No prior study is available for comparison. FINDINGS: There is no focal consolidation, pleural effusion, or pneumothorax. The cardiac silhouette is normal. The aorta is atherosclerotic. The visible bony thorax is intact. Procedure Note Yassine Atkins MD - 11/13/2017 EXAMINATION: XR CHEST PA AND LATERAL DATE: 10/03/2014 1:14 PM HISTORY: Colon cancer, surgical preoperative workup COMPARISON: No prior study is available for comparison. FINDINGS: There is no focal consolidation, pleural effusion, or pneumothorax. Thecardiac silhouette is normal. The aorta is atherosclerotic. The visiblebony thorax is intact. IMPRESSION IMPRESSION: No acute pulmonary process. Dictated by Loy Toth MD (vice president underwriting). Dr. YASSINE Lynn M.D. have personally reviewed and interpreted thisexamination/study. This report was electronically signed by YASSINE ATKINS M.D. on10/03/2014 4:46 PM . Elissa Briggs MD DIAGNOSTIC IMAGING O RDERABLES * CANCER ANTIGEN (CA) 19-9 (10/03/2014 1:00 PM OPERATIONS SYSTEMS SPECIALIST) CA 19-9 27 0 - 35 U/mL [facility] (BEAKER) Comment:Oleg ECLIA methodol ogy Blood specimen (specimen) BLOOD SPECIMEN / Unknown 10/03/2014 1:00 PM OPERATIONS SYSTEMS SPECIALIST 10/03/2014 1:39 PM OPERATIONS SYSTEMS SPECIALIST Narrative [facility] (BEAKER) - 10/04/2014 8:28 AM OPERATIONS SYSTEMS SPECIALIST Performed at: [facility] [id number] Oncology Coordinator: Jamie Lipscomb PhD, Phone: [phone] Elissa Briggs MD LAB - CHEMISTRY [place] [facility] ([facility]) * CANCER ANTIGEN (CA)125 BLOOD (10/03/2014 1:00 PM OPERATIONS SYSTEMS SPECIALIST) CA 125 20.4 0.0 - 34.0 U/mL [facility]) Comment:Oleg ECLIA methodol ogy Blood specimen (specimen) BLOOD SPECIMEN / Unknown 10/03/2014 1:00 PM OPERATIONS SYSTEMS SPECIALIST 10/03/2014 1:39 PM OPERATIONS SYSTEMS SPECIALIST Narrative [facility]) - 10/04/2014 8:28 AM OPERATIONS SYSTEMS SPECIALIST Performed at: [address] [place] [id number] Oncology Coordinator: Jamie Lipscomb PhD, Phone: [phone] Elissa Briggs MD LAB - CHEMISTRY [place] Performing Organization Address [facility]/ZIP Co de Phone Number [facility] ([facility]) * (ABNORMAL) CEA BLOOD (10/03/2014 1:00 PM OPERATIONS SYSTEMS SPECIALIST) CEA 11.6(H) <=5.0 ng/mL [facility] Blood specimen (specimen) BLOOD SPECIMEN / Unknown 10/03/2014 1:00 PM OPERATIONS SYSTEMS SPECIALIST 10/03/2014 1:39 PM OPERATIONS SYSTEMS SPECIALIST Elissa Briggs MD LAB - CHEMISTRY [place] Performing Organization Address City/[facility]/ZIP Co de Phone Number [address] [phone] * PET CT SKULL TO MID THIGH (10/01/2014 12:20 PM OPERATIONS SYSTEMS SPECIALIST) Anatomical Region Laterality Modality Head, Lower Extremity Other Impressions 10/01/2014 2:24 PM OPERATIONS SYSTEMS SPECIALIST IMPRESSION: 1. 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 Recommend correlation with history and biopsy results if available. 2. Few lymph nodes in the right hilum and mediastinum demonstrate mild FDG uptake, more likely reactive in nature. This report was approved by Arthur Marinelli M.D. on 10/01/2014 1:10 PM . I, Dr. BRENT DE LEÓN D.O. have personally reviewed and interpreted this examination/study. This report was electronically signed by BRENT DE LEÓN D.O. on 10/01/2014 2:24 PM . Narrative 10/01/2014 2:24 PM OPERATIONS SYSTEMS SPECIALIST Procedure: PET/CT Study. Referring Physician: Dr. Cerda HISTORY: 73-year-old gentleman with history of colon cancer.. Evaluate for initial treatment strategy. TECHNIQUE: 10.7 mCi of F-18 FDG by IV in the left antecubital fossa. PET/CT image acquisition from top of the head to the mid thigh after approximately 60 minutes post-injection with the CT being low-dose, non-contrast. No separate report for the CT was used for attenuation correction and anatomic localization. Blood glucose level at the time of injection was 94 mg/dl. FINDINGS: No prior examinations available for comparison. Head and neck: No abnormal FDG focus is present in the brain. There are no hypermetabolic or enlarged cervical lymph nodes. There is diffuse FDG uptake in the bilateral parotid glands, likely physiological in nature. Chest: No abnormal FDG focus is present. The lungs are free of focal consolidations. Mild bibasal atelectasis is present. No suspicious pulmonary nodules are visible. There is no pleural effusion or pneumothorax. There are multiple subcentimeter lymph nodes in the axilla, AP window, mediastinum, bilateral hilar and subcarinal regions. A few lymph nodes in the right hilum and mediastinum demonstrate mild FDG uptake with an SUV max of 2.6, likely reactive in nature. The heart size is normal. There is no pericardial effusion. Abdomen and pelvis: The liver and gallbladder appear normal without biliary ductal dilatation. The spleen, pancreas, and adrenal glands appear normal. The kidneys appear normal without hydronephrosis. The small and large bowel are normal in caliber without obstruction. A small right inguinal hernia is present with a loop of bowel and no signs of obstruction. No free intraperitoneal air or free fluid is identified. No lymphadenopathy is seen. There are multiple soft tissue attenuation collections in the perisplenic, perihepatic area adjacent to the cecum and adjacent to the left abdominal wall which are photopenic on PET, likely cystic malignancies. Postoperative changes of an appendectomy, prior colectomy, prostate resection and bilateral inguinal node dissection are seen. For reference, SUV max of liver is 3. Musculoskeletal: No suspicious lytic or blastic lesions. No abnormal FDG focus is present. Procedure Note Brent De León, DO - 11/13/2017 Procedure: PET/CT Study. Referring Physician: Dr. Cerda HISTORY: 73-year-old gentleman with history of colon cancer.. Evaluate forinitial treatment strategy. TECHNIQUE: 10.7 mCi of F-18 FDG by IV in the left antecubital fossa.PET/CT image acquisition from top of the head to the mid thigh afterapproximately 60 minutes post-injection with the CT being low-dose,non-contrast. No separate report for the CT was used for attenuation correction and anatomic localization. Bloodglucose level at the time of injection was 94 mg/dl. FINDINGS: No prior examinations available for comparison. Head and neck: No abnormal FDG focus is present in the brain. There are nohypermetabolic or enlarged cervical lymph nodes. There is diffuse FDGuptake in the bilateral parotid glands, likely physiological in nature. Chest: No abnormal FDG focus is present. The lungs are free of focalconsolidations. Mild bibasal atelectasis is present. No suspiciouspulmonary nodules are visible. There is no pleural effusion orpneumothorax. There are multiple subcentimeter lymph nodes in the axilla, AP window,mediastinum, bilateral hilar and subcarinal regions. A few lymph nodes inthe right hilum and mediastinum demonstrate mild FDG uptake with an SUVmax of 2.6, likely reactive in nature. The heart size is normal. There is no pericardial effusion. Abdomen and pelvis: The liver and gallbladder appear normal withoutbiliary ductal dilatation. The spleen, pancreas, and adrenal glandsappear normal. The kidneys appear normal without hydronephrosis. The small and large bowel are normal in caliber without obstruction. Asmall right inguinal hernia is present with a loop of bowel and no signsof obstruction. No free intraperitoneal air or free fluid is identified.No lymphadenopathy is seen. There are multiple soft tissue attenuation collections in the perisplenic,perihepatic area adjacent to the cecum and adjacent to the left abdominalwall which are photopenic on PET, likely cystic malignancies. Postoperative changes of an appendectomy, prior colectomy, prostateresection and bilateral inguinal node dissection are seen. For reference, SUV max of liver is 3. Musculoskeletal: No suspicious lytic or blastic lesions. No abnormal FDGfocus is present. IMPRESSION IMPRESSION: 1. 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 2. Few lymph nodes in the right hilum and mediastinum demonstrate mild FDGuptake, more likely reactive in nature. This report was approved by Arthur Marinelli M.D. on 10/01/20141:10 PM . I, Dr. BRENT DE LEÓN D.O. have personally reviewed and interpreted thisexamination/study. This report was electronically signed by BRENT DE LEÓN D.O. on 10/01/20142:24 PM . [facility] ORDERABLES * GLUCOSE - POINT OF CARE (AMB) [facility] (10/01/2014 9:51 AM OPERATIONS SYSTEMS SPECIALIST) Only the most recent of2 resultswithin the time period is included. Glucose POCT 94 mg/dL [facility] Capillary blood specimen (specimen) 10/01/2014 9:51 AM OPERATIONS SYSTEMS SPECIALIST Yvon Shultz MD LAB - POINT OF CARE ORDERABLES [facility] Care Teams Custom Bike Builder Relationship Specialty Start Date End Date Tee Padilla MD [address] [place] [address] PCP - General 01/22/09
--- OUTSIDE RECORDS SUMMARY | 2024-10-03 00:49 | XMS_ITS | Clinical Summary ---
Author Organization [facility] Address [address] [place] [address] Care Team Providers Care Kai Whakaruruhau Name Role Phone Tee Padilla MD Primary Care Provider [phone] Source Comments [facility],non-owned Affiliates and Associated Physician Practices is amultiple site organization consisting of ambulatory clinics and hospital sitesin [place], [place], [place] and [place]. This disclosure is being madepursuant to the Care Everywhere program and may not contain all information available regarding this patient. Last updated 18.[facility] Medications * Be aware that medications may not be up to date on this document. Alwaysverify current medications with the patient. Medication Sig Dispensed Refills Start Date End Date Status fentaNYL (DURAGESIC) 25 MCG/HR patch Apply 1 patch to skin q72h. 5 patch 0 12/10/2016 Active lidocaine (LIDODERM) 5 % patch Apply 1 patch to skin QDAY PRN (Pain). 10 patch 0 12/10/2016 Active HYDROcodone-acetaminop hen (NORCO) 5-325 MG tablet Take 1 tablet by mouth q6h PRN (Pain). 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 Immunizations Name Administration Dates Next Due HIB-PRP-T 4 DOSE 10/29/2014 MENINGOCOCAL MENINGITIS 10/29/2014 PNEUMOCOCCAL PPSV23 10/29/2014 Family History Medical History Relation Name Comments Cancer Brother head and neck Cancer Father lung; Status: D eceased Cancer Mother lung; Status: D eceased Eczema Mother Heart Disease Paternal Grandmother Heart Disease Sister anny affluisana ting the heart tree Relation Name Status Comments Brother Father Mother Paternal Grandmother Sister Social History Tobacco Use Types Packs/Day Years [...] Mass Index 28.13 12/02/2016 12:00 AM CDT Plan of Treatment Health Maintenance Due Date Last Done Comments DTAP/TDAP/TD VACCINES (1 - Tdap) 1960 ZOSTER VACCINE (1 of 2) 12/27/1991 PNEUMOCOCCAL VACCINE 50+ (2 of 2 - PCV) 10/30/2015 10/29/2014 Respiratory Syncytial Virus (RSV) Vaccine Pt: or over 60 yrs (1 - 1-dose 75+ series) 2016 COVID-19 VACCINE (4 - season) 2024 07/01/2021, 11/15/2020, 10/25/2020 INFLUENZA VACCINE (#1) 2024 , 06/23/2019, 05/24/2018, Additional history exists DEPRESSION SCREENING 08/16/2024 MEDICARE AWV CALENDAR YEAR 2024 HIB VACCINE Aged Out 10/29/2014 No longer eligi ble based on patient's age to complete this topic MENINGOCOCCAL VACCINE Aged Out 10/29/2014 No nallely aman eligible based on patient's age to complete this topic HEPATITIS B VACCINE Aged Out No longe r eligible based on patient's age to complete this topic HPV VACCINE Aged Out No longer eligi ble based on patient's age to complete this topic MENINGOCOCCAL (Group B) VACCINE Aged Out No longer eligible based on patient's age to complete this topic Care Teams Kai Whakaruruhau Relationship Specialty Start Date End Date Tee Padilla MD [address] [place] [address] PCP - General 01/22/09
--- OUTSIDE RECORDS SUMMARY | 2024-10-03 00:49 | XMS_ITS | Patient Health Record ---
Author Organization [facility] Billing Info Address [address] [place], [place] [id number] Care Team Providers Care Risk Assessor Name Role Phone MARI HUERTA Unavailable [phone] Allergies No Known Allergies Reason For Referral No Information Medications Medication SIG (Take, Route, Frequency, Duration) Notes Start Date End Date Status Hydrocod Polst-CPM Polst ER 10-8 MG/5ML 5 ml as needed Orally every 12 hrs for 15 day(s) 04/28/2021 Active Omeprazole 20 MG 1 capsule 30 minutes before morning meal Orally Once a day for 30 day(s) Active Amlodipine Besylate 10 MG 1 tablet Orall y Once a day for 30 day(s) Active Rosuvastatin Calcium 10 MG 1 tablet Oral ly Once a day for 30 day(s) Active Problems Problem Type SNOMED Code ICD Code Onset Dates Problem Status W/U Status Risk Notes Problem 20284753 Other and unspecified hyperlipidemia (E78.5) Active confirmed Problem 72217483 Essential hypertension (I10) Active confirmed Problem 911563623 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 Problem 21682311 Cough in adult (R05) Active confirmed Problem 827133483 COVID-19 virus infection (U07.1) Active confirmed Plan Of Treatment No Information Medical (General) History Medical History History ICD Code Hypertension Hyperlipidemia Mucinous adenocarcinoma of the appendix COVID-19 infection GERD TIA in 2007 with suspected m ass on aortic valve that turned out not to be present by LAWRENCE he at the time of planned surgery that was therefore canceled Surgical History Surgery Date(Month/Year) LAWRENCE 2007 Extensive abdominal surgery to remove all possible peritoneal metastasis from the mucinous adenocarcinoma 2013 Hospitalization History Reason Date(Month/Year) Multiple hospitalizations related to his cancer TIA 2007
--- OUTSIDE RECORDS SUMMARY | 2024-10-03 00:49 | XMS_ITS | Patient Health Record ---
Author Organization [facility] Address [address] [place] [address] Care Team Providers Care Distributing Clerk Name Role Phone CRISTELA TUBBS Unavailable [phone] Reason For Referral No Information Encounters Encounter Location Date Provider Diagnosis [address] [id number] 07/24/2024 CRISTELA TUBBS Plan Of Treatment No Information
--- OUTSIDE RECORDS SUMMARY | 2024-10-03 00:49 | XMS_ITS | Referral Summary ---
Author Organization [facility] Address [address] [place] [address] Care Team Providers Care Certified Welder Name Role Phone Tee Padilla MD Primary Care Provider [phone] Source Comments [facility],non-owned Affiliates and Associated Physician Practices is amultiple site organization consisting of ambulatory clinics and hospital sitesin [place], [place], [place] and [place]. This disclosure is being madepursuant to the Care Everywhere program and may not contain all information available regarding this patient. Last updated 18.[facility] Medications * Be aware that medications may [...] 10/29/2014 MENINGOCOCAL MENINGITIS 10/29/2014 PNEUMOCOCCAL PPSV23 10/29/2014 Social History Tobacco Use Types Packs/Day Years [...] 12/02/2016 12:00 AM CDT Plan of Treatment Not on file Care Teams Certified Welder Relationship Specialty Start Date End Date Tee Padilla MD [address] [place] [address] PCP - General 01/22/09
--- OUTSIDE RECORDS SUMMARY | 2024-10-03 00:49 | XMS_ITS | Clinical Summary ---
Author Organization [facility] Address [address], [address] [address] Phone Care Team Providers Care Rifle Case Repairer Name Role Phone Tee Padilla MD Primary Care Provider [phone] Allergies No known active allergies Medications temazepam (RESTORIL) 15 MG Capsule TK ONE C PO QHS PRN 0 7 Active rosuvastatin (CRESTOR) 10 MG Tablet TK 1 T PO QD 0 7 Active PROBIOTIC PRODUCT PO Take by mouth. Acti ve Multiple Vitamins-Minera ls (MULTIVITAMIN PO) Take by mouth daily. Active glucosamine-cho ndroitin 500-400 MG Capsule Take 1 Cap by mouth 3 times daily. Active Ascorbic Acid (VITAMIN C PO) Take by mouth daily. Active XARELTO 10 MG Tablet TK 1 T PO QAM 0 8 Active amLODIPine (NORVASC) 10 MG Tablet Take by mouth. Activ e ASPIRIN PO Take by mouth. Acti ve tiZANidine (ZANAFLEX) 4 MG Tablet TK 1 T PO TID PRF MUSCLE SPASTICITY 0 Active fentaNYL (DURAGESIC) 25 MCG/HR PATCH 72 HR 1 Patch by Transdermal route. 7 Active HYDROcodone-janis taminophen (NORCO) 5-325 MG Tablet Take 1 Tab by mouth. 7 Active omeprazole (PriLOSEC) 20 MG CAPSULE DELAYED RELEASE Take 1 Capsule by mouth daily. 90 Capsule 1 1 Active Active Problems No known active problems Immunizations Immunization Administration Dates Next Due HIB Vaccine (PRP-T) 10/29/2014 Influenza Vaccine 06/23/2019,05/24/2018 Influenza, Seasonal, Injecta ble, Undefined 04/27/2014 Influenza, Trivalent, Adjuvanted, PF 06/23/2019, 05/18/2018,05/17/2018 Influenza, high-dose, trivalent, PF 09/0 09/2019,04/23/2017,05/25/2016,05/16 Meningococcal Polysaccharide Vaccine (MPSV4) 10/29/2014 Pneumococcal Vaccine - 13 Valent 05/25/2016 Pneumococcal Vaccine Adult - 23 Valent 7,10/29/2014 TDAP Vaccine 11/11/2012 Zoster Vaccine Recombinant 09/12/2019,06/23/2019 ,10/23/2016 Zoster Vaccine, live 05/25/2016 Family History Medical History Relation Name Comments Cancer Brother JAW CANCER Cancer Father lung Cancer Mother lung Other-comment Sister DISCONNNECTED TISSUE DISORDER Relation Name Status Comments Brother Father Mother Sister Social History Tobacco Use Types Packs/Day Years Used Date Smoking Tobacco: Never Smokeless Tobacco: Former Chew Tobacco Cessation:Counseling Given: No Alcohol Use Standard Drinks/Week Comments Yes 0 (1 standard drink = 0.6 oz pur e alcohol) Sexually Active Control Partners Comments Not Currently Sex and Gender Information Value Date Recorded Sex Assigned at Not on file Legal Sex Male 10:02 PM CDT Gender Identity Not on file Sexual Orientation Not on file Occupation Industry Job Start Date Job End Date retired [employer] Not on file Not on file Not on file Last Filed Vital Signs Vital Sign Reading Time Taken Comments Blood Pressure 100/64 04/24/2020 1:35 PM CDT Pulse 74 04/24/2020 1:35 PM CDT Temperature 37.2 C (98.9 F) 04/24/2020 1:35 PM CDT Respiratory Rate 16 04/24/2020 1:35 PM CDT Oxygen Saturation 95% 04/24/2020 1:35 PM CDT Inhaled Oxygen Concentration - - Weight 85.7 kg (189 lb) 04/24/2020 1:35 PM CDT Height 172.7 cm (5' 8 ) 09/09/2017 2:11 PM RISK PROFESSIONAL Body Mass Index 28.74 09/09/2017 2:11 PM RISK PROFESSIONAL Plan of Treatment Health Maintenance Due Date Last Done Comments Hepatitis C Virus (HCV) Screening 1940 Respiratory Syncytial Virus (RSV) Immunization (Adult) (1 - 1-dose 75+ series) 2016 Influenza Immunization (#1) 2024 09/0 09/2019, 06/23/2019, 06/23/2019, Additional history exists SARS-COV-2 Immunization ( season) 2024 07/01/2021, 11/15/2020, 10/25/2020 DTaP/Tdap/Td Immunization Discontinued 11/11/2012 Meningococcal Immunization (ACWY) Aged Out 10/29/2014 No longer eligible based on patient's age to complete this topic Pneumococcal Immunization (50+ years) Completed 06/03/2017, 05/25/2016, 10/29/2014 Pneumococcal Immunization Combined Discontinued 06/03/2017, 05/25/2016, 10/29/2014 Zoster Immunization Completed 09/12/2019, 06/23/2019, 10/23/2016, Additional history exists Hepatitis B Immunization Aged Out No longer eligible based on patient's age to complete this topic Rotavirus Immunization Aged Out No lo nger eligible based on patient's age to complete this topic Insurance MEDICARE Care Teams Rifle Case Repairer Relationship Specialty Start Date End Date Tee Padilla MD [address] [address] PCP - General Family Medicine 02/25/17
[2024-10-03 10:39] VITALS: BP 132/77; PULSE 84; RESP 16; TEMP 36.4; O2SAT 96; BMI 28.6
[2024-10-03] MEDS: LACTATED RINGERS 1,000 ML 150 ML IV CONT (10:49)
--- NOTE | 2024-10-03 10:58 | WPDANESEPPF ---
Anes - Initial Pre Proc Eval Procedure: Operation Date: 10/03/24 11:30 Proposed Procedures p Colonoscopy - Mathew Byers MD Date/Time: 10/03/24 10:58 Surgeon: Mathew Byers MD Pre Op Diagnosis: Personal hx of colon polyps Patient Data Age: 83 Gender: M Height: 1.75 m Weight: 88.1 kg Last Vital Signs Temp 97.5 F L 10/03/24 10:39 Pulse 84 10/03/24 10:39 Resp 16 10/03/24 10:39 BP 132/77 10/03/24 10:39 Pulse Ox 96 10/03/24 10:39 O2 Del Method Room Air 10/03/24 10:39 Allergies Allergy/AdvReac Type Severity Reaction Status Date / Time No Known Allergies Allergy Verified 10/03/24 10:37 Home Medications ?Medication ?Instructions ?Recorded ?Confirmed ?Type rosuvastatin 10 mg tablet (Crestor) 10 mg PO DAILY 10/11/19 10/03/24 History apixaban 5 mg tablet (Eliquis) 5 mg PO Q12HR #180 tabs 12/22/23 10/03/24 Rx aspirin 81 mg chewable tablet 81 mg PO DAILY@0800 #30 tabs 12/22/23 10/03/24 Rx (Children's Aspirin) amlodipine 10 mg tablet 10 mg PO DAILY #90 tabs 02/06/24 10/03/24 Rx isosorbide mononitrate 30 mg 30 mg PO DAILY 02/22/24 10/03/24 History tablet,extended release 24 hr omeprazole 20 mg capsule,delayed See Rx Instructions .Route 09/28/24 10/03/24 Rx release .COMPLEX #100 caps Patient hx anesthesia problems: none Family hx anesthesia problems: none Results Review: All pre-operative results and documents have been reviewed as part of the pre-operative evaluation. [facility] Past Medical History Medical History PTSD (post-traumatic stress disorder) Atrial flutter Pleurisy Male stress incontinence Obstructive sleep apnea Intolerant to PAP therapy. Carotid artery disease Status post left carotid endarterectomy. Prostate cancer Status post prostatectomy. 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 Essential hypertension Mixed hyperlipidemia Surgical History Surgical History S/P prostatectomy History of prostatectomy (2000) History of cardiac catheterization (2007) History of left-sided carotid endarterectomy (02/15/08) History of splenectomy History of tonsillectomy (194) History of colonoscopy with polypectomy (03/16/19) History of right knee joint replacement (06/07/18) History of left knee replacement (08/31/17) History of left hip replacement (06/01/17) History of hemorrhoidectomy (1966) History of appendectomy (10/2014) History of colon resection (10/2014) For cancer of the appendix. History of cholecystectomy Family History Family History Father Family history of lung cancer Tobacco abuse Mother Family history of lung cancer Tobacco abuse COPD (chronic obstructive pulmonary disease) Sibling , cancer Alcoholism Heart disease Suicide Other Family history of cardiovascular disease Family history of coronary artery disease Hypertension Social History Social History Social History: Surrogate medical decision maker: Shira Chu, spouse. Code status: Full code. Smoking packs per day: 0 Smoking cigarettes per day: 0.0 Years smoked: 0 Smoking pack-years: 0.00 Smoking status: Never smoker Smokeless tobacco user: chewing tobacco Second hand tobacco smoke exposure: No Additional smoking assessment comments: STATES QUITTING CHEWING 2003, DENIES ALL FORMS OF TOBACCO USE Alcohol intake: current Drinks per week: 1 Alcohol use details: LIQUOR X 2 DRINKS WEEKLY Substance use: never Substance use type: does not use Do You Feel Safe in your Home?: Yes Lack of Transportation: No Lack of Food: Never True Current Housing: I Have Housing Concerned About Future Housing: No Difficulty Paying Gas/Electric Bills: No Difficulty Paying for Meds: No Currently Unemployed: No Education: Associate Degree Difficulty w/ Childcare or Family Care: No Living arrangements: with family Additional living arrangements comments: Lives with spouse in [place]. 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 Spiritual care concerns: No Anes - Eval Final PreProcedure Day of Procedure 10/03/24 10:58 Patient weight: overweight Lungs: normal air movement Airway: Mallampati scale class II Neurological: alert and oriented Last oral intake: >/= 8 hours ASA classification: III Emergent: no Anesthetic plan: proceed Anesthesia type and monitoring: general GIVS and standard monitoring Results Review: All pre-operative results and documents have been reviewed as part of the pre-operative evaluation. HTN, hyperlipidemia, longstanding hx of angina, most recent cardiac cath 01/2024 w minimal atherosclerosis, no obstructive disease, pt placed on long acting nitrate. ROSA but awaiting CPAP. Informed Consent: The patient's anesthetic plan and its attendant risks and benefits were discussed with the patient/family/POA. Questions were solicited and answers provided to the satisfaction of the patient/family/POA.
--- NOTE | 2024-10-03 11:02 | P.HP_ITS ---
History of Present Illness History of Present Illness Consent: Risks, benefits, and alternatives have been discussed and questions answered. Patient agrees to proceed with procedure. Chief complaint: Personal hx of colon polyps Narrative: Matthias Chu is a 83 year old male with colon polyp 5 years ago Review of Systems Review of Systems: All systems reviewed & are unremarkable except as noted in HPI and below PMFSH Past Medical History Medical History PTSD (post-traumatic stress disorder) Atrial flutter Pleurisy Male stress incontinence Obstructive sleep apnea Intolerant to PAP therapy. Carotid artery disease Status post left carotid endarterectomy. Prostate cancer Status post prostatectomy. 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 Essential hypertension Mixed hyperlipidemia Surgical History Surgical History S/P prostatectomy History of prostatectomy (2000) History of cardiac catheterization (2007) History of left-sided carotid endarterectomy (02/15/08) History of splenectomy History of tonsillectomy (194) History of colonoscopy with polypectomy (03/16/19) History of right knee joint replacement (06/07/18) History of left knee replacement (08/31/17) History of left hip replacement (06/01/17) History of hemorrhoidectomy (1966) History of appendectomy (10/2014) History of colon resection (10/2014) For cancer of the appendix. History of cholecystectomy Family History Family History Father Family history of lung cancer Tobacco abuse Mother Family history of lung cancer Tobacco abuse COPD (chronic obstructive pulmonary disease) Sibling , cancer Alcoholism Heart disease Suicide Other Family history of cardiovascular disease Family history of coronary artery disease Hypertension Social History Social History Social History: Surrogate medical decision maker: Shira Chu, spouse. Code status: Full code. Smoking packs per day: 0 Smoking cigarettes per day: 0.0 Years smoked: 0 Smoking pack-years: 0.00 Smoking status: Never smoker Smokeless tobacco user: chewing tobacco Second hand tobacco smoke exposure: No Additional smoking assessment comments: STATES QUITTING CHEWING 2003, DENIES ALL FORMS OF TOBACCO USE Alcohol intake: current Drinks per week: 1 Alcohol use details: LIQUOR X 2 DRINKS WEEKLY Substance use: never Substance use type: does not use Do You Feel Safe in your Home?: Yes Lack of Transportation: No Lack of Food: Never True Current Housing: I Have Housing Concerned About Future Housing: No Difficulty Paying Gas/Electric Bills: No Difficulty Paying for Meds: No Currently Unemployed: No Education: Associate Degree Difficulty w/ Childcare or Family Care: No Living arrangements: with family Additional living arrangements comments: Lives with spouse in [place]. 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 care concerns: No Meds Home Medications and Allergies Home Medications ?Medication ?Instructions ?Recorded ?Confirmed ?Type rosuvastatin 10 mg tablet (Crestor) 10 mg PO DAILY 10/11/19 10/03/24 History apixaban 5 mg tablet (Eliquis) 5 mg PO Q12HR #180 tabs 12/22/23 10/03/24 Rx aspirin 81 mg chewable tablet 81 mg PO DAILY@0800 #30 tabs 12/22/23 10/03/24 Rx (Children's Aspirin) amlodipine 10 mg tablet 10 mg PO DAILY #90 tabs 02/06/24 10/03/24 Rx isosorbide mononitrate 30 mg 30 mg PO DAILY 02/22/24 10/03/24 History tablet,extended release 24 hr omeprazole 20 mg capsule,delayed See Rx Instructions .Route 09/28/24 10/03/24 Rx release .COMPLEX #100 caps Allergies Allergy/AdvReac Type Severity Reaction Status Date / Time No Known Allergies Allergy Verified 10/03/24 10:37 Vital Signs Vital Signs - 24 hr 10/03/24 10:39 Temperature 97.5 F L Pulse Rate 84 Respiratory Rate 16 Blood Pressure 132/77 Pulse Oximetry 96 Oxygen Delivery Room Air Exam Const: General: comfortable and no acute distress HENMT: Face/Nose/Sinus: Normal nares present Eyes: General: appearance normal, both eyes and all related structures Neck: Neck: no JVD Resp: Auscultation: clear to auscultation bilaterally Cardio: Rate: regular rate Rhythm: regular rhythm GI: Inspection: non-distended GI Palp: Yes Soft to palpation Skin: General skin exam: normal color Neuro: Speech: normal speech Extrem: General: normal to inspection Psych: Mental Status: mental status grossly normal Assessment and Plan Assessment and plan (1) Hx of colonic polyps: Code(s): Z86.010 - Personal history of colon polyps Status: Acute Assessment and Plan: colonoscopy
[2024-10-03 11:21] VITALS: BP 81/52; PULSE 72; RESP 18; O2SAT 97
[2024-10-03 11:31] VITALS: BP 102/68; PULSE 63; RESP 18; O2SAT 95
[2024-10-03 11:41] VITALS: BP 116/77; PULSE 68; RESP 20; O2SAT 98
== END 2024-10-03 11:58 | disposition home or self-care (01) ==
PROVIDERS: PCP Family Medicine; Referring Provider Physician Assistant Medical; Visit Provider Internal Medicine Gastroenterology
PROC: 0DJD8ZZ Inspection of Lower Intestinal Tract, Via Natural or Artificial Opening Endoscopic (ICD-10-PCS; CPT 45378; principal; 2024-10-03 11:30)
DX: Z12.11 Encounter for screening for malignant neoplasm of colon (principal); K64.8 Other hemorrhoids; K57.30 Diverticulosis of large intestine without perforation or abscess without bleeding; I10 Essential (primary) hypertension; E78.2 Mixed hyperlipidemia; N39.3 Stress incontinence (female) (male); G47.33 Obstructive sleep apnea (adult) (pediatric); F43.10 Post-traumatic stress disorder, unspecified; I48.92 Unspecified atrial flutter; Z79.01 Long term (current) use of anticoagulants; Z79.82 Long term (current) use of aspirin; Z98.890 Other specified postprocedural states; Z98.61 Coronary angioplasty status; Z98.0 Intestinal bypass and anastomosis status; Z90.49 Acquired absence of other specified parts of digestive tract; Z87.891 Personal history of nicotine dependence; Z86.0100 Personal history of colon polyps, unspecified; Z86.79 Personal history of other diseases of the circulatory system; Z85.46 Personal history of malignant neoplasm of prostate; Z86.73 Personal history of transient ischemic attack (TIA), and cerebral infarction without residual deficits; Z85.038 Personal history of other malignant neoplasm of large intestine; Z80.1 Family history of malignant neoplasm of trachea, bronchus and lung; Z82.49 Family history of ischemic heart disease and other diseases of the circulatory system
CPT/HCPCS: G0105; J2003; J2704; J7120

== ENCOUNTER 2025-01-25 10:11 | Outpatient (CLI) | payer MEDICARE, OTHER, SELFPAY ==
--- NOTE | ~2025-01-25 | CT_ITS ---
CT of the Abdomen and Pelvis: Indication: Abdominal pain Technique: 2.5 mm axial scans were obtained through the abdomen and pelvis following intravenous adm inistration of 100 cc of Omnipaque 350. Dose reduction technique was used on this scan by utilizing a utomated exposure control and iterative reconstruction technique. The dose-length product (DLP) was 7 79.35 mGy-cm. COMPARISON: 07/21/2024 Findings: Scans through the lung bases are unremarkable. Small hepatic cysts are present. Probable diffuse hepatic steatosis. Status post splenectomy. The eng creas, gallbladder, adrenals and kidneys are within normal limits. No evidence of aortic aneurysm. No lymphadenopathy. No bowel obstruction or bowel wall thickening. There is no evidence to suggest acute appendicitis. Images through the pelvis are degraded by streak artifact from bilateral hip arthroplasty. Urinary bl adder poorly evaluated. No definite pelvic mass seen. No ascites. Impression: No acute abnormality. Diffuse fatty steatosis. Status post hysterectomy. Reviewed, dictated and finalized at [facility]. Impression: No acute abnormality. Diffuse fatty steatosis. Status post hysterectomy.
[2025-01-25 10:41] LABS: Estimated Glomerular Filt Rate 53
--- OUTSIDE RECORDS SUMMARY | 2025-01-25 11:08 | XMS_ITS ---
Author Organization [facility] Address [address] [facility] [address] [place] [address] Care Team Providers Care Student Accounts Coordinator Name Role Phone CRISTELA TUBBS Unavailable [phone] REASON FOR VISIT QTC EKG Only Encounters Encounter Location Date Provider Diagnosis [address] [id number] 07/24/2024 CRISTELA TUBBS Plan Of Treatment No Information Progress Notes * Matthias GRULLONDOB: 2 (84 yo M)Acc No.[id number]:07/24/2024 Patient: Matthias ACKERMAN Provider: Skyler Tubbs MD :1940 A ge:83 Y S ex:Male Date:07/24/2024 Address:[address] [place], [place] [id number] Subjective: * Chief Complaints: * 1 . QTC EKG Only. * Medical History: Objective: * Vitals: Assessment: Plan: * Treatment: * * Electronic signature of VINCENT TUBBS MD on 01/25/2025 at 11:08 AM CDT Sign off status: Pending * Provider: Skyler Tubbs MD Date: 1 09/24/2023 Generated for Ivonne downey/Lexie/eTransmitting on: 0 01/25/2025 11:08 AM CDT
--- OUTSIDE RECORDS SUMMARY | 2025-01-25 11:08 | XMS_ITS | Patient Health Record ---
Author Organization [facility] Address [address] [facility] [address] [place] [address] Care Team Providers Care Manager Bar Name Role Phone CRISTELA TUBBS Unavailable [phone] Reason For Referral No Information Encounters Encounter Location Date Provider Diagnosis [address] [id number] 07/24/2024 CRISTELA TUBBS Plan Of Treatment No Information
--- OUTSIDE RECORDS SUMMARY | 2025-01-25 11:08 | XMS_ITS | Clinical Summary ---
Author Organization [facility] Address [address] [place] [address] Care Team Providers Care Speed Winder Name Role Phone Tee Padilla MD Primary Care Provider + [phone] Chester Cerda DO Unavailable [phone] Allergies No known active allergies Medications ascorbic [...] 50 mg tablet Take by mouth Active Eliquis 5 mg tablet Take 1 tablet (5 mg total) by mouth every 12 (twelve) hours 12/22/2023 Active aspirin 81 mg chewable tablet CHEW AND SWALLOW 1 TABLET BY MOUTH DAILY AT 8 AM 12/23/2023 Active isosorbide mononitrate ER (IMDUR) 30 mg 24 hr tabletIndication s:Microvascular angina Take 1 tablet (30 mg total) by mouth daily 90 tablet 3 02/18/2024 02/18/20 Active omeprazole (PriLOSEC) 20 mg capsule Take 1 capsule (20 mg total) by mouth daily 07/03/2024 Active rosuvastatin (CRESTOR) 10 mg tablet TAKE 1 TABLET BY MOUTH DAILY 90 tablet 1 12/07/2024 Active Active Problems Problem Noted Date Diagnosed Date Carotid atherosclerosis 05/05/2019 History of TIA (transient ischemic attack) 05/05 Abnormality of aortic valve 10/13/2018 Other chest pain 10/13/2018 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 Immunizations Immunization Administration Dates Next Due [...] Hx Other Medical Hiatal Hernia Pneumococcal pneumonia 2017 Meningitis 2017 Cancer of appendix (HCC) Family History Medical History Relation Name Comments [...] on file Legal Sex Male 8:29 PM PANEL LAMINATOR Gender Identity Male 06/29/2021 12:16 PM PANEL LAMINATOR Sexual Orientation Straight 06/29/2021 12 :16 PM PANEL LAMINATOR Obstetrics History Last Filed Vital Signs Vital Sign Reading Time Taken Comments Blood Pressure 166/84 07/28/2024 1:12 PM PANEL LAMINATOR Pulse 67 07/28/2024 1:12 PM PANEL LAMINATOR Temperature 36.4 C (97.6 F) 07/28/2024 1:12 PM PANEL LAMINATOR Respiratory Rate 18 07/28/2024 1:12 PM PANEL LAMINATOR Oxygen Saturation 95% 07/28/2024 1:1 2 PM PANEL LAMINATOR Inhaled Oxygen Concentration - - Weight 94.1 kg (207 lb 7.3 oz) 07/28/20 24 1:12 PM PANEL LAMINATOR with shoes Height 175.3 cm (5' 9) 04/21/2024 2:22 PM CDT Body Mass Index 30.64 04/21/2024 2:22 PM CDT Plan of Treatment Health Maintenance Due Date Last Done Comments Depression Screening 1940 Fall Risk Assessment 1940 Hepatitis B Screening 12[birth year]27/1958 Well Visit 65+ 2006 Pneumococcal vaccine 65+ (2 of 2 - PCV) 10/30/2015 10/29/2014 Covid-19 Vaccine ( - 2023-2 5 season) 2024 07/01/2021, 11/15/2020, 10/25/2020 Influenza Vaccine (Season Ended) 2025 05/21/2022, 06/23/2019, 05/24/2018, Additional history exists DTaP/Tdap/Td Vaccine (2 - Td or Tdap) 03/04/2034 03/04/2024 Zoster Vaccine Completed 09/12/2019, 03/2019, 10/23/2016 Insurance MEDICARE [facility] MEDICARE [facility] Care Teams Speed Winder Relationship Specialty Start Date End Date Tee Padilla MD PCP - General 04/18/13 [place] [address] [place] [address] Medical Oncologist/Electric Meter Setter Hematology and Oncology 07/22/22
--- OUTSIDE RECORDS SUMMARY | 2025-01-25 11:08 | XMS_ITS | Clinical Summary ---
Author Organization [facility] [employer] Address [address] [place] [address] Care Team Providers Care E Commerce Project Manager Name Role Phone Tee Padilla MD Primary Care Provider [phone] Source Comments [facility] [employer],non-owned Affiliates and Associated Physician Practices is amultiple site organization consisting of ambulatory clinics and hospital sitesin [place], [place], [place] and [place]. This disclosure is being madepursuant to the Care Everywhere program and may not contain all information available regarding this patient. Last updated 18.[facility] [employer] Medications * Be aware that medications may not be up to date on this document. Alwaysverify current medications with the patient. fentaNYL (DURAGESIC) 25 MCG/HR patch Apply 1 patch to skin q72h. 5 patch 0 12/10/2016 Active lidocaine (LIDODERM) 5 % patch Apply 1 patch to skin QDAY PRN (Pain). 10 patch 0 12/10/2016 Active HYDROcodone-acet aminophen (NORCO) 5-325 MG tablet Take 1 tablet [...] neoplasm of retroperitoneum and peritoneum 10/15/2014 Immunizations Immunization Administration Dates Next Due HIB-PRP-T 4 DOSE 10/29/2014 MENINGOCOCAL MENINGITIS 10/29/2014 PNEUMOCOCCAL PPSV23 10/29/2014 Family History Medical History Relation Name Comments Cancer Brother head and neck Cancer Father lung; Status: D eceased Cancer Mother lung; Status: D eceased Eczema Mother Heart Disease Paternal Grandmother Heart Disease Sister callogen affec ting the heart tree Relation Name Status Comments Brother Father Mother Paternal Grandmother Sister Social History Tobacco Use Types Packs/Day Years Used Date Smoking Tobacco: Never Smokeless Tobacco: Former Quit: 08/16/2014 Alcohol Use Standard Drinks/Week Comments Yes 0 (1 standard drink = 0.6 oz pur e alcohol) Sex and Gender Information Value Date Recorded Sex Assigned at Not on file 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 Gender Identity Not on file Sexual Orientation [...] 4:56 AM CDT Height 180.3 cm (5' 11) 12/02/2016 12: 00 AM CDT Body Mass Index 28.13 12/02/2016 12:00 AM CDT Plan of Treatment Health Maintenance Due Date Last Done Comments DTAP/TDAP/TD VACCINES (1 - Tdap) 1960 ZOSTER VACCINE (1 of 2) 12/27/1991 PNEUMOCOCCAL VACCINE 50+ (2 of 2 - PCV) 10/30/2015 10/29/2014 Respiratory Syncytial Virus (RSV) Vaccine Pt: or over 60 yrs (1 - 1-dose 75+ series) 2016 COVID-19 VACCINE ( - season) 2024 07/01/2021, 11/15/2020, 10/25/2020 DEPRESSION SCREENING 08/16/2024 INFLUENZA VACCINE (Season Ended) 2025 04/17/2020, 06/23/2019, 05/24/2018, Additional history exists HIB VACCINE Aged Out 10/29/2014 No longer eligi ble based on patient's age to complete this topic MENINGOCOCCAL GROUPS A/C/Y/W VACCINE Aged Out 10/29/2014 No longer eligible based on patient's age to complete this topic HEPATITIS B VACCINE Aged Out No longe r eligible based on patient's age to complete this topic HPV VACCINE Aged Out No longer eligi ble based on patient's age to complete this topic MENINGOCOCCAL (Group B) VACCINE SHARED DECISION-MAKING Aged Out No longer eligible based on patient's age to complete this topic Insurance MEDICARE [facility] [employer] [place] [address] Care Teams E Commerce Project Manager Relationship Specialty Start Date End Date Tee Padilla MD [address] [place] [address] PCP - General 01/22/09
--- OUTSIDE RECORDS SUMMARY | 2025-01-25 11:08 | XMS_ITS | Clinical Summary ---
Author Organization [facility] Address [address] [place] [address] Care Team Providers Care Silk Screen Layout Drafter Name Role Phone Unavailable Primary Care Provider Unavailabl e Encounters Date Type Department Care Team Description 01/04/2025 External Device Data [facility] ABSTRACTION Provider, Abstract 01/03/2025 External Device Data [facility] ABSTRACTION Provider, Abstract 01/02/2025 External Device Data [facility] ABSTRACTION Provider, Abstract 11/01/2024 External Device Data [facility] ABSTRACTION Provider, Abstract from Last 3 Months Social History Tobacco Use Types Packs/Day Years Used Date Smoking Tobacco: Never Assessed Sex and Gender Information Value Date Recorded Sex Assigned at Not on file Legal Sex Male 9:27 AM 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
--- OUTSIDE RECORDS SUMMARY | 2025-01-25 11:08 | XMS_ITS | Referral Summary ---
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 Gender Identity Male 06/29/2021 12:16 PM MILLER KILN DRIED SALT Sexual Orientation Straight 06/29/2021 12 :16 PM MILLER KILN DRIED SALT Last Filed Vital Signs Vital Sign Reading Time Taken Comments Blood Pressure 166/84 07/28/2024 1:12 PM MILLER KILN DRIED SALT Pulse 67 07/28/2024 1:12 PM MILLER KILN DRIED SALT Temperature 36.4 C (97.6 F) 07/28/2024 1:12 PM MILLER KILN DRIED SALT Respiratory Rate 18 07/28/2024 1:12 PM MILLER KILN DRIED SALT Oxygen Saturation 95% 07/28/2024 1:1 2 PM MILLER KILN DRIED SALT Inhaled Oxygen Concentration - - Weight 94.1 kg (207 lb 7.3 oz) 07/28/20 24 1:12 PM MILLER KILN DRIED SALT with shoes Height 175.3 cm (5' 9) 04/21/2024 2:22 PM CDT Body Mass Index 30.64 04/21/2024 2:22 PM CDT Plan of Treatment Not on file Insurance MEDICARE [facility] MEDICARE [facility] MEDICARE [facility] Care Teams Service Captain Relationship Specialty Start Date End Date Tee Padilla MD PCP - General 04/18/13 Chester Cerda DO [address] [address] Medical Oncologist/Electrician'S Helper Hematology and Oncology 07/22/22
--- OUTSIDE RECORDS SUMMARY | 2025-01-25 11:09 | XMS_ITS | Clinical Summary ---
Author Organization [facility] Address [address], [address] [address] Phone Care Team Providers Care Bitumastic Applier Name Role Phone Tee Padilla MD Primary Care Provider [phone] Allergies No known active allergies Medications temazepam [...] 1:35 PM CDT Height 172.7 cm (5' 8) 09/09/2017 2:11 PM SALES ORDER ADMINISTRATOR Body Mass Index 28.74 09/09/2017 2:11 PM SALES ORDER ADMINISTRATOR Plan of Treatment Health Maintenance Due Date Last Done Comments Hepatitis C Virus (HCV) Screening 1940 Respiratory Syncytial Virus (RSV) Immunization (Adult) (1 - 1-dose 75+ series) 2016 SARS-COV-2 Immunization ( season) 2024 07/01/2021, 11/15/2020, 10/25/2020 Influenza Immunization (Season Ended) 2025 04/17/2020, 06/23/2019, 06/23/2019, Additional history exists DTaP/Tdap/Td Immunization Discontinued 11/11/2012 Meningococcal Immunization (ACWY) Aged Out 10/29/2014 No longer eligible based on patient's age to complete this topic Pneumococcal Immunization (50+ years) Completed 06/03/2017, 05/25/2016, 10/29/2014 Pneumococcal Immunization Combined Discontinued 06/03/2017, 05/25/2016, 10/29/2014 Zoster Immunization Completed 09/12/2019, 06/23/2019, 10/23/2016, Additional history exists Hepatitis B Immunization Aged Out No longer eligible based on patient's age to complete this topic Human Papillomavirus (HPV) Immunization Aged Out No longer eligible based on patient's age to complete this topic Rotavirus Immunization Aged Out No lo nger eligible based on patient's age to complete this topic Insurance MEDICARE [employer] [place] [id number] Care Teams Bitumastic Applier Relationship Specialty Start Date End Date Tee Padilla MD [address] [address] PCP - General Family Medicine 02/25/17
--- OUTSIDE RECORDS SUMMARY | 2025-01-25 11:09 | XMS_ITS | Patient Health Record ---
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 Problem 64407608 Cough in adult (R05) Active confirmed Problem [id number] COVID-19 virus infection (U07.1) Active confirmed Plan Of Treatment No Information Medical (General) History Medical History History ICD Code Hypertension Hyperlipidemia Mucinous adenocarcinoma of the appendix COVID-19 infection GERD TIA in 2007 with suspected m ass on aortic valve that turned out not to be present by [facility] he at the time of planned surgery that was therefore canceled Surgical History Surgery Date(Month/Year) Extensive abdominal surgery to 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
== END 2025-01-25 10:12 | disposition home or self-care (01) ==
PROVIDERS: PCP Family Medicine; Visit Provider Physician Assistant Medical
DX: K76.0 Fatty (change of) liver, not elsewhere classified (principal); Z90.81 Acquired absence of spleen
CPT/HCPCS: 74177; Q9967

== ENCOUNTER 2025-07-20 07:46 | Outpatient (CLI) | payer MEDICARE, OTHER, SELFPAY ==
--- NOTE | ~2025-07-20 | CT_ITS ---
EXAM/PROCEDURE: CT abdomen pelvis w con HISTORY: Cancer of appendix COMPARISON: January 25, 2025 TECHNIQUE: IV contrast enhanced CT of the abdomen and pelvis performed FINDINGS: Partial colectomy surgical changes in the cecal region noted with nonvisualization of the appendix or any mass in the right lower quadrant. No bulky lymphadenopathy or masses seen in the pelvic sidewalls, retroperitoneum or mesenteric regions. Evaluation of the lower pelvis obscured by beam hardening artifact associated with bilateral total hip replacement hardware. Moderate amount of stool extends to the cecum. Other chronic appearing findings including liver cysts, atherosclerotic changes in the aorta, and extensive surgical changes in the lower pelvis not clearly changed. Mild bibasilar fibrotic and atelectatic changes in the lung bases which are otherwise clear. Heart and great vessels within the field of view stable. The bones also appear stable. IMPRESSION: No acute findings. No gross evidence of recurrent or metastatic disease seen. Reviewed, dictated and finalized at location [facility]. [employer]
[2025-07-20 08:08] LABS: Estimated Glomerular Filt Rate 39
== END 2025-07-20 07:47 | disposition home or self-care (01) ==
PROVIDERS: PCP Family Medicine; Visit Provider Internal Medicine Medical Oncology
DX: C18.1 Malignant neoplasm of appendix (principal)
CPT/HCPCS: 74177; Q9967